=== PATIENT | male | born 1960 | race Caucasian/White ===

== ENCOUNTER 2021-08-29 11:26 | Emergency (ER) | payer MEDICARE, MEDICAID, SELFPAY ==
[2021-08-29 11:43] VITALS: BP 156/87; PULSE 78; RESP 16; TEMP 37; O2SAT 97
--- NOTE | 2021-08-29 12:50 | DI.CT_ITS ---
Exam(s) CT HEAD CERVICAL SPINE WO EXAM: CT HEAD CERVICAL SPINE WO CLINICAL HISTORY: fall, H/A, neck pain. TECHNIQUE: Imaging Protocol: Axial computed tomography images with coronal and sagittal reformatted images were created and reviewed COMPARISON: No exams were available for comparison FINDINGS: CT Head: Ventricles and Extra axial spaces: Normal in size and morphology for the patient's age. Hemorrhage: None. Cerebral parenchyma: Normal. Midline shift: None. Brainstem/Cerebellum: Normal. Calvarium: Normal. Visualized Paranasal sinuses/Mastoids: Clear. Soft Tissues: Unremarkable. CT Cervical Spine: Bones: No acute fracture or subluxation. The posterior arch of C1 is not united. This is a normal va riant. Multilevel degenerative changes are seen in the cervical spine. Soft Tissues: Atherosclerosis is present. Thyroid gland: Unremarkable. Lung Apices: Mild emphysematous changes. IMPRESSION: 1. No acute intracranial process. 2. No acute fracture or subluxation in the cervical spine. 3. Results of this exam have been verbally communicated with provider. RADIATION DOSE DELIVERED: 1,665.66mGy.cm Total DLP DATA REPOSITORY: All CT scans at this facility are submitted to the National Radiology Data Registry (NRDR) Dose Index Registry (DIR) with the [employer] (A[employer]). RADIATION OPTIMIZATION: All CT scans at this facility use at least one of these dose optimization te chniques: automated exposure control; mA and/or kV adjustment per patient size (includes targeted exa ms where dose is matched to clinical indication); or iterative reconstruction.
--- NOTE | 2021-08-29 13:38 | ED.GENADUL_ITS ---
Discharge Plan Disposition Patient Disposition: HOME Condition: Stable Discharge Details Clinical Impression: Neck pain, Cephalgia Primary Care Provider: Rafi Macedo ED Provider: Wander George Home Meds and New Rx's Prescriptions: New cyclobenzaprine 7.5 mg tablet 7.5 mg PO TID PRNQty: 10 RF: 0 Continued pregabalin [Lyrica] 300 mg capsule 300 mg PO BID Qty: 60 RF: 5 methadone 40 mg tablet,soluble 170 mg PO DAILY RF: 0 clonidine HCl 0.2 mg tablet 0.2 mg PO TID PRN (Reason: alcohol withdrawal) Qty: 90 RF: 0 promethazine 25 mg tablet 25 mg PO TID PRN (Reason: nausea and vomiting) Qty: 30 RF: 0 bupropion HCl (smoking deter) 150 mg tablet extended release 12 hr See Rx Instructions PO BID Qty: 180 RF: 0 indomethacin 50 mg capsule 50 mg PO TID PRN (Reason: gout attacks) Qty: 30 RF: 0 Discharge Instructions Instructions: General Headache (ED), Neck Pain (ED) Additional Instructions: At this time the CT of your head and neck are unremarkable. Further work-up was recommended here in the ER but declined. I recommend that you continue to discontinue drinking alcohol as set up by your primary care provider and outpatient plan. Flexeril as directed, this medication may cause drowsiness. Cool and/or warm compresses every 2 hours for 20 minutes gentle stretching as tolerated. [id number] Tylenol and/or Motrin as directed for discomfort. Please watch for new or worsening symptoms and return to the ER for any concerns. Lastly, please contact your primary care provider later today or tee [place] to discuss your ongoing symptoms need for outpatient reevaluation. Discharge Data Discharge Date/Time-TO BE ENTERED AT DEPARTURE: 08/29/21 13:57 Medical Decision Making 60-year-old gentleman presents complaining of neck discomfort and global headache upon awaking approximately 5 days ago. Unfortunately he is a rather vague and poor historian. Patient admits to alcohol use and multiple falls. Unclear whether this is trauma related. A hard c-collar was placed and plan is to obtain CT imaging of her C-spine and head. He denies any IV drug use. Denies fever, numbness, tingling, weakness, radiation of pain. Clinically he appears well, nontoxic, neurologically intact, afebrile. Patient and family are comfortable with obtaining CT imaging of head and C-spine. He would prefer not to have any IV access obtained or blood work obtained. Clinically there is no obvious signs of infection, the pain is bilateral, and he is neurologically intact. Other differential such as meningitis, dissection, abscess, etc. come to mind although based upon his presentation and his multiple falls, this does appear to be more musculoskeletal in nature. I did have a very candid conversation explained to the patient the limitations of this work-up. CT imaging unremarkable. Hard c-collar removed. Patient does have full range of motion of his neck and he has no bony midline point tenderness. No obvious erythema or warmth. No neuro deficit. Patient has diffuse discomfort with movement in any direction. There is no nuchal rigidity. We once again discussed her options. Patient does not want to pursue any further work-up now and is relieved that his CT of his brain and neck are unremarkable. We once again discussed the limitations of the work-up. He understands this. Patient is comfortable initially treating this conservatively as musculoskeletal but tells me he will contact his primary care provider tomorrow to discuss his ongoing symptoms or return to the ER for new or worsening symptoms. He states he simply cannot stay in the ER any longer this evening. I will provide a short term prescription of Flexeril and we discussed the importance of not drinking alcohol while taking this medication. Patient is of sound mind and can make his own decisions. Again he is afebrile, neurologically intact, no bony midline point tenderness, denies bowel or bladder issues. Patient understands the risks of leaving without additional work-up completed. Strict discharge and return precautions provided This documentation was generated using WIDIP dictation system, please disregard any oddities of phrase or misspellings. I have placed the patient on the care management list to help expedite out patient follow-up given his overall presentation and choice not to have further work-up here in the ER. Medical Records Medical records reviewed: Yes I reviewed the patient's medical records. Imaging Data Radiologic Study: Attestation: I personally reviewed and interpreted this imaging study as follows: Imaging: CT Scan Radiologist's impression: Exam(s) CT HEAD CERVICAL SPINE WO EXAM: CT HEAD CERVICAL SPINE WO CLINICAL HISTORY: fall, H/A, neck pain. TECHNIQUE: Imaging Protocol: Axial computed tomography images with coronal and sagittal reformatted images were created and reviewed COMPARISON: No exams were available for comparison FINDINGS: CT Head: Ventricles and Extra axial spaces: Normal in size and morphology for the patient's age. Hemorrhage: None. Cerebral parenchyma: Normal. Midline shift: None. Brainstem/Cerebellum: Normal. Calvarium: Normal. Visualized Paranasal sinuses/Mastoids: Clear. Soft Tissues: Unremarkable. CT Cervical Spine: Bones: No acute fracture or subluxation. The posterior arch of C1 is not united. This is a normal variant. Multilevel degenerative changes are seen in the cervical spine. Soft Tissues: Atherosclerosis is present. Thyroid gland: Unremarkable. Lung Apices: Mild emphysematous changes. IMPRESSION: 1. No acute intracranial process. 2. No acute fracture or subluxation in the cervical spine. 3. Results of this exam have been verbally communicated with provider. HPI General Mode of arrival: ambulatory . Date/Time Provider Initiated Documentation: 08/29/21 11:27 . Limitations to Documentation: no limitations . Information obtained by: patient and family . HPI Narrative: This is a 60-year-old gentleman with a past medical history of alcohol abuse, currently trying to cut back, hypertension, depression, current smoker, anemia, GERD, diabetes, on methadone, presenting to the ER reporting bilateral posterior neck discomfort worse with movement in any direction that radiates up to his head causing a headache. Patient states that given his alcohol abuse he does frequently fall. He admits to hitting his head but denies any obvious head injury or neck injury from the fall and. He states approximately 5 days ago he woke up in the morning, felt as though he slept awkwardly complaining of diffuse posterior neck discomfort. He is concerned of a pinched nerve. Patient denies any visual changes, sore throat, fever, chest pain, shortness of breath, abdominal pain, nausea, vomiting, pain or swelling in his extremities, numbness, tingling, weakness in extremities, anticoagulation, change in bowel or bladder function. He has not taken any [id number] medications for his symptoms. Patient states that he has contacted his primary care provider about his alcohol abuse, was recently prescribed clonidine, but has not begun taking it regularly. Patient reports the pain is moderate in nature, does not radiate anywhere. Patient placed into a hard c-collar Related Data Home Medications Medication Instructions Recorded Confirmed methadone 40 mg soluble tablet 170 mg PO DAILY tab 03/10/20 10/06/20 pregabalin 300 mg capsule 300 mg PO BID #60 cap 04/21/21 04/21/21 bupropion HCl (smoking deter) 150 See Rx Instructions PO BID #180 tab 08/11/21 08/11/21 mg tablet,12 hr sustained-release(smoking deterrent) clonidine HCl 0.2 mg tablet 0.2 mg PO TID PRN #90 tab 08/11/21 08/11/21 indomethacin 50 mg capsule 50 mg PO TID PRN #30 cap 08/11/21 08/11/21 promethazine 25 mg tablet 25 mg PO TID PRN #30 tab 08/11/21 08/11/21 cyclobenzaprine 7.5 mg PO TID PRN #10 tab 08/29/21 Previous Rx's Medication Instructions Recorded pregabalin 300 mg capsule 300 mg PO BID #60 cap 04/21/21 bupropion HCl (smoking deter) 150 See Rx Instructions PO BID #180 tab 08/11/21 mg tablet,12 hr sustained-release(smoking deterrent) clonidine HCl 0.2 mg tablet 0.2 mg PO TID PRN #90 tab 08/11/21 indomethacin 50 mg capsule 50 mg PO TID PRN #30 cap 08/11/21 promethazine 25 mg tablet 25 mg PO TID PRN #30 tab 08/11/21 cyclobenzaprine 7.5 mg PO TID PRN #10 tab 08/29/21 Allergies Allergy/AdvReac Type Severity Reaction Status Date / Time No Known Allergies Allergy Verified 08/11/21 09:12 General Stated Complaint: Nk/Back Pain ESTER: 3 Review of Systems Constitutional Constitutional: Denies fatigue, Denies fever(s), Reports headache(s) and Denies weakness Eyes Eyes: Denies change in vision ENT Ears, Nose, Mouth, and Throat: Reports headache(s), Reports neck pain and Denies sore throat Cardiovascular Cardiovascular: Denies chest pain and Denies dyspnea Respiratory Respiratory: Denies dyspnea Gastrointestinal Gastrointestinal: Denies abdominal pain, Denies nausea and Denies vomiting Genitourinary Genitourinary: Denies dysuria Musculoskeletal Musculoskeletal: Reports neck pain, Denies numbness and Denies tingling Integumentary/Breasts Skin/Breast: Denies rash Neurologic Neurologic: Reports headache(s), Denies numbness, Denies tingling and Denies weakness Endocrine Endocrine: Denies fatigue PFSH All Active Problems (Updated 08/29/21 @ 13:39 by BEVERLY Hubbard) Neck pain (Acute) Cephalgia (Acute) Varicose veins of both lower extremities (Acute) Gout (Chronic) History of tonsillectomy (Chronic) Hyperglycemia (Acute) Low back pain (Acute) Prostatitis (Acute) Inflammatory disease of liver (Chronic) Atrophic gastritis (Acute) Heart block (Acute) Essential hypertension (Acute) ADHD (Acute) Depressive disorder (Chronic) Tobacco use disorder (Acute) Claustrophobia (Acute) Anemia of chronic disease (Acute) Vitamin D deficiency (Acute) Disorder of endocrine system (Acute) Type II diabetes mellitus (Acute) GERD (gastroesophageal reflux disease) (Chronic) Social History (Updated 03/30/21 @ 13:57 by Lisa Coffman LPN) Smoking/Tobacco Use Status: Current every day Quit status: considering quitting Counseling given: support medications Smoking risk assessment performed?: Yes Alcohol Intake: current Alcohol Intake frequency: 3 or more drinks per day Details: H/O substance abuse - heroin Adopted: No Housing: other Details: [facility] Communication Needs: None current occupation: disabled Pets and animals: No Current gender identity: male What is your relationship status?: don't know How often do you talk on the phone with friends or family?: three or more times per week How often do you get together with friends or relatives?: three or more times per week Panel score (0-1 are the most socially isolated patients): 1 What type of physical activity do you participate in: none Seatbelt use: sometimes Fire extinguisher in home: No Carbon monox detector in home: No Firearms in home: No Do you feel safe at home: Yes Exam Const General: cooperative, healthy appearing, comfortable and no acute distress Orientation: alert, awake and oriented x3 HENMT Head: normal to inspection, normocephalic and atraumatic Face and sinus: normal facial exam Mouth: moist mucous membranes Eyes General: appearance normal, both eyes and all related structures Conjunctivae: conjunctivae normal Neck Neck: normal visual inspection, full ROM, no lymphadenopathy, no meningeal signs, trachea midline and supple Other: diffuse posterior discomfort, no midline point tenderness. Hard c-collar in place Resp Effort & Inspection: normal respiratory effort and able to speak in complete sentences Auscultation: clear to auscultation bilaterally Cardio Rate: regular rate Rhythm: regular rhythm GI Palpation: soft and nontender Back/Spine/Pelvis Back: No back tenderness Skin General skin exam: no rashes or lesions noted Neuro General: patient alert, patient awake, patient oriented x3, moves all extremities and no focal motor deficits Cranial Nerves: CN's II-XI intact bilaterally Cognition: normal cognition Speech: speech normal Gait: normal gait Motor: muscle tone normal throughout, strength 5/5 throughout and no movement abnormalities noted Sensory Exam: no sensory deficits noted Coordination: Does not sway with eyes open Extrem General: normal to inspection, full ROM, capillary refill normal, no pedal edema and no calf tenderness Psych Appearance: grossly normal Mental Status: mental status grossly normal Course Vital Signs Vital signs: Vital Signs Temperature 37.0 C 08/29/21 11:43 Pulse 78 08/29/21 11:43 Respiratory Rate 16 08/29/21 11:43 Blood Pressure 156/87 H 08/29/21 11:43 Pulse Oximetry 97 08/29/21 11:43 Temperature 37.0 C 08/29/21 11:43 Temperature Source Skin 08/29/21 11:43 Pulse 78 08/29/21 11:43 Respiratory Rate 16 08/29/21 11:43 Respiratory Effort 08/29/21 11:57 Blood Pressure 156/87 H 08/29/21 11:43 Blood Pressure Position Sitting 08/29/21 11:43 Pulse Oximetry 97 08/29/21 11:43 Oxygen Delivery Method Room Air 08/29/21 11:43 Oxygen Flow Rate 0 08/29/21 11:43 Pain Level 10 08/29/21 11:43 PAWSS Have you Been Recently Intoxicated or Drunk Within the Last 30 days?: Yes Have you Ever Experienced Previous Episodes of Alcohol Withdrawal?: Yes Have you ever Experienced Withdrawal Seizures?: Yes Have you ever Experienced Delirium Tremens(DT)s?: Yes Have you ever undergone Alcohol Rehabilitation Treatment (i.e, inpt ot outpatient treatment programs)?: Yes Have you ever Experienced Blackouts?: Yes Have you ever Combined Alcohol with other Downers within the last 90 days?: No Have you ever Combined Alcohol with any other Substance of Abuse during the last 90 days?: No Positive Blood Alcohol level on Presentation? [PCS.BAL]: Yes Evidence of Increased Autonomic Activity (i.e. HR>120, tremor, sweating, agitation, nausea)?: No Result: 7
--- NOTE | 2021-08-29 17:08 | NUR.NOTE ---
Nursing Note: CARE MANAGMENT GIVEN PT INFO FOR NECK PAIN PETTY. [facility]
== END 2021-08-29 13:57 | disposition home or self-care (01) ==
PROVIDERS: Emergency Provider Physician Assistant; PCP Family Medicine
DX: M54.2 Cervicalgia (principal); R51.9 Headache, unspecified; F10.10 Alcohol abuse, uncomplicated
CPT/HCPCS: 99284; 70450; 72125; 99283

== ENCOUNTER 2022-01-02 11:31 | Outpatient (CLI) | payer MEDICARE, MEDICAID, SELFPAY ==
--- NOTE | 2022-01-02 11:15 | DI.RAD_ITS ---
Exam(s) XR CLAVICLE RT EXAM: XR CLAVICLE RT CLINICAL HISTORY: right distal clavicle fracture TECHNIQUE: 2D digital imaging was performed of the right clavicle. Two images were obtained. AP and axial views were obtained. COMPARISON: CR XR SHOULDER MIN 2V RT from 12/12/2021 FINDINGS: BONES: There has been no change in alignment of the distal clavicular fracture. No bony destructive lesion is seen. There is again seen an osseous density superior to the glenohumeral joint. Postsurgi andrey changes are seen in the inferior glenoid. JOINTS: No dislocation present. Degenerative changes are seen at the glenohumeral joint and the acrom ioclavicular joint. SOFT TISSUE: Normal IMPRESSION: Stable distal clavicular fracture. DATA REPOSITORY: RADIATION DOSE DELIVERED:
--- NOTE | 2022-01-02 11:30 | DI.RAD_ITS ---
Exam(s) XR SHOULDER RT COMPLETE 2+V EXAM: XR SHOULDER RT COMPLETE 2+V CLINICAL HISTORY: right shoudler pain. TECHNIQUE: 2D digital imaging was performed of the right shoulder. Four images were obtained. AP a nd axillary views were obtained. COMPARISON: CR XR SHOULDER MIN 2V RT from 12/12/2021 FINDINGS: BONES: There has been no change in alignment of the distal clavicular fracture. No bony destructive lesion is seen. Postsurgical changes are seen in the inferior glenoid. The appearance of the humeral head is unchanged. JOINTS: No dislocation present. Degenerative changes are again seen at the acromioclavicular and dhiraj ohumeral joints. SOFT TISSUE: Calcifications in the soft tissues are unchanged. IMPRESSION: Stable distal clavicular fracture. DATA REPOSITORY: RADIATION DOSE DELIVERED:
== END 2022-01-02 11:32 | disposition home or self-care (01) ==
PROVIDERS: PCP Family Medicine; Referring Provider Family Medicine; Visit Provider Physician Assistant
DX: S42.001A Fracture of unspecified part of right clavicle, initial encounter for closed fracture (principal); S42.141A Displaced fracture of glenoid cavity of scapula, right shoulder, initial encounter for closed fracture; W01.0XXA Fall on same level from slipping, tripping and stumbling without subsequent striking against object, initial encounter; M19.011 Primary osteoarthritis, right shoulder
CPT/HCPCS: 99214; 73000; 73030

== ENCOUNTER → 2022-01-08 00:37 | Outpatient (CLI) | payer MEDICARE, MEDICAID, SELFPAY | PROVIDERS: PCP Family Medicine; Visit Provider Student in an Organized Health Care Education/Training Program ==

== ENCOUNTER → 2022-01-23 11:30 | Outpatient (BNVA) | payer MEDICARE, MEDICAID, SELFPAY | PROVIDERS: PCP Family Medicine; Referring Provider Family Medicine; Visit Provider Student in an Organized Health Care Education/Training Program | DX: R69 Illness, unspecified (principal) ==

== ENCOUNTER 2022-07-04 18:03 | Inpatient (IN) | payer MEDICARE, MEDICAID, SELFPAY ==
[2022-07-04] VITALS (53 sets, daily range): BP systolic 129–189; BP diastolic 70–107; PULSE 77–118; RESP 10–26; TEMP 36.8; O2SAT 93–100
[2022-07-04 18:47] LABS: Bilirubin Negative (Negative); Blood Trace-lysed (Negative); Clarity Sl Cloudy (Clear); Glucose Negative (Negative); Ketones Negative (Negative); Leukocyte Esterase Negative (Negative); Nitrite Negative (Negative); pH 7.5 (5-8)
--- NOTE | 2022-07-04 18:55 | W.ED.GENAD ---
Discharge Plan Disposition Patient Disposition: [facility] INPATIENT Condition: Stable Discharge Details Clinical Impression: Acute gallstone pancreatitis, Alcohol intoxication Primary Care Provider: Rafi Macedo ED Provider: Doretha Alatorre Home Meds and New Rx's Prescriptions: No Action methadone 40 mg tablet,soluble 170 mg PO DAILY bupropion HCl (smoking deter) 150 mg tablet extended release 12 hr See Rx Instructions PO BID Qty: 180 0RF Rx Instructions: Start 150 mg QD x 3 days, then increase to BID PO twice a day; indomethacin 50 mg capsule 50 mg PO TID PRN (Reason: gout attacks) Qty: 30 0RF Rx Instructions: administer with food or milk clonidine HCl 0.2 mg tablet 0.2 mg PO TID PRN (Reason: alcohol withdrawal) Qty: 90 0RF promethazine 25 mg tablet 25 mg PO TID PRN (Reason: nausea and vomiting) Qty: 90 0RF cyclobenzaprine 7.5 mg tablet 7.5 mg PO TID PRNQty: 10 0RF Medical Decision Making 1814 -- 61-year-old male with history of daily alcohol abuse, hypertension, gout, GERD, diabetes, ADHD, and tobacco use presents for request for alcohol detox. Last drink 1 hour ago. He is also complaining of vomiting and abdominal pain. Patient is intoxicated appearing. His heart rate 104, remainder vitals within normal limits. His abdomen is soft and mildly diffusely tender throughout. Presentation does not appear consistent with withdrawal at this time. Consider other gastrointestinal process. Will obtain screening labs and CT imaging. We will give a dose of Zofran and IV fluids. We will continue to monitor for signs of withdrawal. If patient is medically cleared, will contact head tennis coach with plan for referral to rehabilitation. 1999 -- patient too intoxicated to speak to head tennis coach. 2144 -- Labs and imaging reviewed. Normal white blood cell count. Normal electrolytes. AST minimally elevated at 92. Normal ALT. Alk phos minimally elevated at 155. Normal total bilirubin. Lipase moderately elevated at 505. Urinalysis notes blood but no infection. UDS positive for methadone. Alcohol level 145. CT notes sludge and possible gallstones within the gallbladder lumen with mild gallbladder thickening and pericholecystic fluid consistent with possible acute calculus cholecystitis. There may also be a small stone present in the distal common bile duct and consider choledocholithiasis and gallstone pancreatitis. There is diffuse peripancreatic inflammatory stranding and fluid consistent with acute pancreatitis. Patient reassessed and he is complaining of left shoulder pain. He states he sustained a recent left clavicle fracture. His heart rate is low 90s. His blood pressure has become slightly more hypertensive at 148/99. We will give a dose of IV Tylenol, will give a dose of IV Ativan, banana bag. Will call general surgery for recommendations. 2229 --Case discussed and imaging reviewed with Dr. Levy --likely not consistent with choledocholithiasis as he has normal bilirubin. Recommends n.p.o. and obtaining abdominal ultrasound tomorrow. Recommends admission to [facility] medicine for monitoring for alcohol withdrawal. Case discussed with Dr. Ibarra who accepts patient for admission. Patient can be admitted to the floor with oral Ativan. This was discussed with Dr. Levy and she is okay with oral Ativan. Medical Records Medical records reviewed: Yes I reviewed the patient's medical records. Imaging Data Radiologic Study: Radiologist's impression: CT Abdomen And Pelvis With Contrast Exam date and time: 07/04/2022 9:40 PM Age: 61 years old Clinical indication: Abdominal pain; Generalized TECHNIQUE: Imaging protocol: Computed tomography of the abdomen and pelvis with contrast. Contrast material: OMNIPAQUE 350; Contrast volume: 100 ml; Contrast route: INTRAVENOUS (IV);? COMPARISON: No relevant prior studies available. FINDINGS: Lungs: There are bilateral lower lobe atelectatic changes present. The lungs are otherwise normal. Pleural spaces: There is no evidence of pneumothorax. There are no pleural effusions present. Heart: The cardiac structures are normal. Liver: There are no focal liver lesions present. Gallbladder and bile ducts: There is sludge and possible small gallstones present within the gallbladder lumen. There is mild gallbladder thickening. There is mild pericholecystic fluid. Consider acute calculus cholecystitis. There may be a small stone present within the distal common bile duct consider choledocholithiasis and gallstone pancreatitis. Pancreas: There is diffuse peripanreatic inflammatory stranding and fluid, consistent with acute pancreatitis. The pancreatic duct is mildly dilated. Spleen: The spleen is normal. Adrenal glands: The adrenal glands are normal. Kidneys and ureters: The kidneys are normal. Stomach and bowel: There is no evidence of intestinal obstruction. Appendix: There is no evidence of appendicitis. Intraperitoneal space: There is no free intraperitoneal air. Vasculature: The aorta is unremarkable without evidence of significant atherosclerosis or aneurysmal disease. The peripheral arterial vascular system visualized is unremarkable. The portal venous system visualized is unremarkable. The peripheral venous vascular system visualized is unremarkable. Lymph nodes: There is no evidence of lymphadenopathy. Urinary bladder: The bladder is normal. Reproductive: The prostate gland demonstrates calcification and mild nonspecific enlargement. The seminal vesicles are normal. Bones/joints: The skeletal structures and soft tissues show no evidence of fracture or other acute processes. The thoracolumbar spine demonstrates moderate degenerative changes at multiple levels.The lumbar spine demonstrates moderate degenerative changes. Soft tissues: The extra-abdominal soft tissues are normal. The extra-abdominal soft tissues are normal. IMPRESSION: 1. There is sludge and possible small gallstones present within the gallbladder lumen. There is mild gallbladder thickening. There is mild pericholecystic fluid. Consider acute calculus cholecystitis. 2. There may be a small stone present within the distal common bile duct consider choledocholithiasis and gallstone pancreatitis. 3. There is diffuse peripanreatic inflammatory stranding and fluid, consistent with acute pancreatitis. 4. The pancreatic duct is mildly dilated. Lab Data Lab results reviewed: Yes I reviewed the patient's lab results. Labs: Laboratory Tests Range/Units 07/04/22 07/04/22 07/04/22 18:40 18:40 18:50 WBC (4.4-10.8) 10^3/uL RBC (4.36-5.78) 10^6/uL Hgb (13.5-17.5) g/dL Hct (40.0-50.0) % MCV (80-95) fL MCH (27.0-33.0) pg MCHC (32.0-36.0) % RDW (11.8-14.1) % Plt Count (130-400) 10^3/uL MPV (8.0-11.0) fL Immature Gran % Neutrophils % Lymphocytes % Monocytes % Eosinophils % Basophils % Nucleated RBC % (0.0-0.3) % Absolute Neutrophils (1.2-6.7) 10^3/uL Absolute Lymphocytes (1.2-3.4) 10^3/uL Absolute Monocytes (0.1-0.8) 10^3/uL Absolute Eosinophils (0.0-0.7) 10^3/uL Absolute Basophils (0.0-0.2) 10^3/uL Sodium (136-145) mmol/L 137 Potassium (3.5-5.1) mmol/L 3.5 Chloride (98-107) mmol/L 98 Carbon Dioxide (21.0-32.0) mmol/L 31.7 Anion Gap (3-11) mmol/L 7.3 BUN (7-18) mg/dL 7 Creatinine (0.70-1.30) mg/dL 0.8 Est GFR (CKD-EPI 2020) (mL/min/1.73m2) 100.69 Glucose (74-106) mg/dL 111 H Calcium (8.5-10.1) mg/dL 8.7 Total Bilirubin (0.2-1.0) mg/dL 0.7 AST (15-37) U/L 92 H ALT (16-63) U/L 45 Alkaline Phosphatase (46-116) U/L 155 H Total Protein (6.4-8.2) g/dL 7.9 Albumin (3.4-5.0) g/dL 3.9 Lipase (73-393) U/L Urine Color (Yellow) Yellow Urine Clarity (Clear) Sl Cloudy Urine pH (5-8) 7.5 Ur Specific [place] (1.005-1.025) 1.020 Urine Protein (Negative) mg/dL Negative Urine Ketones (Negative) mg/dL Negative Urine Blood (Negative) Trace-lysed H Urine Nitrite (Negative) Negative Urine Bilirubin (Negative) Negative Urine Urobilinogen (Up TO 0.2) EU/dL 1.0 H Ur Leukocyte Esterase (Negative) Negative Urine RBC (0-2) HPF 3-5 H Urine WBC (0-5) HPF 0-2 Ur Epithelial Cells (Negative) HPF Few Urine Crystals (Negative) HPF Few Amorphous Urine Bacteria (Negative) HPF Few Urine Mucus (Negative) Negative Ur Culture Indicated? No Urine Glucose (Negative) mg/dL Negative Urine Opiates Screen (Negative) Negative Urine Methadone Screen (Negative) Positive A Ur Barbiturates Screen (Negative) Negative Ur Tricyclics Screen (Negative) Negative Ur Amphetamines Screen (Negative) Negative U Benzodiazepines Scrn (Negative) Negative Urine Cocaine Screen (Negative) Negative Ur THC Screen (Negative) Negative Ethyl Alcohol (<10) mg/dL 145.2 H Range/Units 07/04/22 07/04/22 18:50 18:50 WBC (4.4-10.8) 10^3/uL 4.68 RBC (4.36-5.78) 10^6/uL 4.42 Hgb (13.5-17.5) g/dL 14.7 Hct (40.0-50.0) % 42.0 MCV (80-95) fL 95 MCH (27.0-33.0) pg 33.3 H MCHC (32.0-36.0) % 35.0 RDW (11.8-14.1) % 13.3 Plt Count (130-400) 10^3/uL 203 MPV (8.0-11.0) fL 8.5 Immature Gran % 0.0 Neutrophils % 68.0 Lymphocytes % 23.1 Monocytes % 8.3 Eosinophils % 0.2 Basophils % 0.4 Nucleated RBC % (0.0-0.3) % 0.0 Absolute Neutrophils (1.2-6.7) 10^3/uL 3.18 Absolute Lymphocytes (1.2-3.4) 10^3/uL 1.08 L Absolute Monocytes (0.1-0.8) 10^3/uL 0.39 Absolute Eosinophils (0.0-0.7) 10^3/uL 0.01 Absolute Basophils (0.0-0.2) 10^3/uL 0.02 Sodium (136-145) mmol/L Potassium (3.5-5.1) mmol/L Chloride (98-107) mmol/L Carbon Dioxide (21.0-32.0) mmol/L Anion Gap (3-11) mmol/L BUN (7-18) mg/dL Creatinine (0.70-1.30) mg/dL Est GFR (CKD-EPI 2020) (mL/min/1.73m2) Glucose (74-106) mg/dL Calcium (8.5-10.1) mg/dL Total Bilirubin (0.2-1.0) mg/dL AST (15-37) U/L ALT (16-63) U/L Alkaline Phosphatase (46-116) U/L Total Protein (6.4-8.2) g/dL Albumin (3.4-5.0) g/dL Lipase (73-393) U/L 505 H Urine Color (Yellow) Urine Clarity (Clear) Urine pH (5-8) Ur Specific [place] (1.005-1.025) Urine Protein (Negative) mg/dL Urine Ketones (Negative) mg/dL Urine Blood (Negative) Urine Nitrite (Negative) Urine Bilirubin (Negative) Urine Urobilinogen (Up TO 0.2) EU/dL Ur Leukocyte Esterase (Negative) Urine RBC (0-2) HPF Urine WBC (0-5) HPF Ur Epithelial Cells (Negative) HPF Urine Crystals (Negative) HPF Urine Bacteria (Negative) HPF Urine Mucus (Negative) Ur Culture Indicated? Urine Glucose (Negative) mg/dL Urine Opiates Screen (Negative) Urine Methadone Screen (Negative) Ur Barbiturates Screen (Negative) Ur Tricyclics Screen (Negative) Ur Amphetamines Screen (Negative) U Benzodiazepines Scrn (Negative) Urine Cocaine Screen (Negative) Ur THC Screen (Negative) Ethyl Alcohol (<10) mg/dL ECG Data Attestation: I personally reviewed and interpreted this ECG (s) as follows: Interpretation: rate of 92, sinus, normal axis, no stemi. HPI General Mode of arrival: ambulatory. Date/Time Provider Initiated Documentation: 07/04/22 18:15. Limitations to Documentation: no limitations. Information obtained by: patient. HPI Narrative: Patient is a 61-year-old male with a history of daily alcohol abuse, hypertension, GERD, ADHD, depression who presents for request for detox. Partner states that he drinks approximately 18 twisted teas daily. He states he had 16 twisted teas today, his last drink was 1 hour ago. He states he missed his methadone doses on Saturday and Saturday but did receive his dose today. Partner states that he has been vomiting and complaining of abdominal pain today. Patient states he did use cocaine several days ago. Partner states he has been in rehabilitation in the past. Related Data Home Medications Medication Instructions Recorded Confirmed methadone 40 mg soluble tablet 170 mg PO DAILY 03/10/20 07/04/22 bupropion HCl (smoking deter) 150 See Rx Instructions PO BID #180 08/11/21 07/04/22 mg tablet,12 hr tabs sustained-release(smoking deterrent) indomethacin 50 mg capsule 50 mg PO TID PRN gout attacks #30 08/11/21 07/04/22 caps cyclobenzaprine 7.5 mg tablet 7.5 mg PO TID PRN #10 tabs 08/29/21 07/04/22 clonidine HCl 0.2 mg tablet 0.2 mg PO TID PRN alcohol 05/17/22 07/04/22 withdrawal #90 tabs promethazine 25 mg tablet 25 mg PO TID PRN nausea and 05/17/22 07/04/22 vomiting #90 tabs Previous Rx's Medication Instructions Recorded bupropion HCl (smoking deter) 150 See Rx Instructions PO BID #180 08/11/21 mg tablet,12 hr tabs sustained-release(smoking deterrent) indomethacin 50 mg capsule 50 mg PO TID PRN gout attacks #30 08/11/21 caps cyclobenzaprine 7.5 mg tablet 7.5 mg PO TID PRN #10 tabs 08/29/21 clonidine HCl 0.2 mg tablet 0.2 mg PO TID PRN alcohol 05/17/22 withdrawal #90 tabs promethazine 25 mg tablet 25 mg PO TID PRN nausea and 05/17/22 vomiting #90 tabs Allergies Allergy/AdvReac Type Severity Reaction Status Date / Time No Known Allergies Allergy Verified 07/04/22 18:13 General Stated Complaint: ETOHWithdr ESTER: 3 Review of Systems All systems reviewed & are unremarkable except as noted in HPI and below Constitutional Constitutional: Reports as per HPI, Denies chills and Denies fever(s) Eyes Eyes: Denies blurry vision ENT Ears, Nose, Mouth, and Throat: Denies dizziness, Denies sore throat and Denies throat swelling Cardiovascular Cardiovascular: Denies chest pain and Denies dyspnea Respiratory Respiratory: Denies cough and Denies dyspnea Gastrointestinal Gastrointestinal: Reports abdominal pain, Denies diarrhea, Reports nausea and Reports vomiting Genitourinary Genitourinary: Denies hematuria and Denies dysuria Musculoskeletal Musculoskeletal: Denies back pain and Denies numbness Integumentary/Breasts Skin/Breast: Denies lesions and Denies rash Neurologic Neurologic: Denies dizziness, Denies localized weakness and Denies numbness Allergic/Immunologic Allergic/Immunologic: Denies throat swelling PFSH All Active Problems (Updated 07/04/22 @ 22:11 by Doretha Alatorre DO) Acute gallstone pancreatitis (Acute) Alcohol intoxication (Acute) No-show for appointment (Acute) Arthritis of right glenohumeral joint (Acute) Fracture of right clavicle (Acute) distal clavicle 12/12/21 Nausea (Acute) Varicose veins of both lower extremities (Acute) Hyperglycemia (Acute) Low back pain (Acute) Prostatitis (Acute) Inflammatory disease of liver (Chronic) Atrophic gastritis (Acute) Heart block (Acute) Claustrophobia (Acute) Vitamin D deficiency (Acute) Disorder of endocrine system (Acute) Medical History (Updated 07/04/22 @ 22:11 by Doretha Alatorre DO) ADHD Alcoholism Anemia of chronic disease Depressive disorder Essential hypertension GERD (gastroesophageal reflux disease) Gout Tobacco use disorder Type II diabetes mellitus Surgical History (Updated 07/04/22 @ 18:56 by Doretha Alatorre DO) History of foot surgery History of tonsillectomy Social History (Updated 03/30/21 @ 13:57 by Lisa Coffman LPN) Smoking/Tobacco Use Status: Current every day Quit status: considering quitting Counseling given: support medications Smoking risk assessment performed?: Yes Alcohol Intake: current Alcohol Intake frequency: 3 or more drinks per day Drug use: Current Sobriety Substance use type: does not use Details: H/O substance abuse - heroin Adopted: No Housing: other Details: [facility] Communication Needs: None current occupation: disabled Pets and animals: No Current gender identity: male What is your relationship status?: don't know How often do you talk on the phone with friends or family?: three or more times per week How often do you get together with friends or relatives?: three or more times per week Panel score (0-1 are the most socially isolated patients): 1 What type of physical activity do you participate in: none Seatbelt use: sometimes Fire extinguisher in home: No Carbon monox detector in home: No Firearms in home: No Do you feel safe at home: Yes Exam Const General: disheveled and intoxicated appearing Orientation: alert, awake and oriented x3 HENMT Head: normal to inspection Face and sinus: normal facial exam Eyes General: appearance normal, both eyes and all related structures Pupils: PERRL EOM: EOM intact bilaterally Neck Neck: normal visual inspection and No submandibular swelling Lymphatic: no lymphadenopathy noted Chest Chest: normal inspection of the chest and no tenderness Resp Effort & Inspection: normal respiratory effort and able to speak in complete sentences Auscultation: clear to auscultation bilaterally Cardio Rate: tachycardic Rhythm: regular rhythm GI Inspection: normal to inspection Palpation: soft, not firm, not rigid and nontender Auscultation: hypoactive bowel sounds Back/Spine/Pelvis Thoracic/Lumbar Spine: thoracic and lumbar spine normal to inspection Pelvis: no pain with anterior-posterior compression Skin General skin exam: no rashes or lesions noted Neuro General: patient alert, patient awake, patient oriented x3, moves all extremities and no meningeal signs Cognition: normal cognition Speech: speech normal Motor: muscle tone normal throughout and strength 5/5 throughout Sensory Exam: no sensory deficits noted Extrem General: normal to inspection, full ROM, capillary refill normal, no calf tenderness bilaterally and no edema Psych Appearance: grossly normal Mental Status: mental status grossly normal Speech and Movement: speech and movement normal Affect: normal affect Course Vital Signs Vital signs: Vital Signs Temperature 98.3 F 07/04/22 18:09 Pulse 104 H 07/04/22 18:09 Respiratory Rate 18 07/04/22 18:09 Blood Pressure 130/88 07/04/22 18:09 Pulse Oximetry 98 07/04/22 18:09 Temperature 98.3 F 07/04/22 18:09 Temperature Source Oral 07/04/22 18:09 Pulse 104 H 07/04/22 18:09 Respiratory Rate 18 07/04/22 18:09 Respiratory Effort Non-Labored 07/04/22 18:14 Blood Pressure 130/88 07/04/22 18:09 Blood Pressure Position Sitting 07/04/22 18:09 Pulse Oximetry 98 07/04/22 18:09 Oxygen Delivery Method Room Air 07/04/22 18:09 Oxygen Flow Rate 0 07/04/22 18:09 Pain Level 10 07/04/22 18:09 PAWSS Have you Been Recently Intoxicated or Drunk Within the Last 30 days?: Yes Have you Ever Experienced Previous Episodes of Alcohol Withdrawal?: Yes Have you ever Experienced Withdrawal Seizures?: No Have you ever Experienced Delirium Tremens(DT)s?: No Have you ever undergone Alcohol Rehabilitation Treatment (i.e, inpt ot outpatient treatment programs)?: Yes Have you ever Experienced Blackouts?: Yes Have you ever Combined Alcohol with other Downers within the last 90 days?: No Have you ever Combined Alcohol with any other Substance of Abuse during the last 90 days?: No Result: 4
[2022-07-04 18:56] LABS: Bacteria Few HPF (Negative); C & S Indicated? No; Crystals Few Amorphous HPF (Negative); Epithelial Cells Few HPF (Negative); Mucus Negative (Negative); WBC 0-2 HPF (0-5)
[2022-07-04 18:57] LABS: *AMPHETAMINES SCREEN URINE Negative (Negative); *BARBITURATES SCREEN URINE Negative (Negative); *BENZODIAZEPINES SCREEN URINE Negative (Negative); Cannabinoids THC Negative (Negative); Cocaine Screen,Urine Negative (Negative); METHADONE URINE SCREEN Positive (Negative); OPIATES URINE SCREEN Negative (Negative)
[2022-07-04 18:59] LABS: Tricyclic Antidepressants Negative (Negative)
--- NOTE | 2022-07-04 18:59 | NUR.NOTE ---
has not been consistent with taking medications for the past month Nursing Note:
--- NOTE | 2022-07-04 19:00 | RT.EKG_ITS ---
APPROVED REPORT Exam: Resting ECG Reason for Exam: tachycardia Patient Location: E HR:92 bpm ECG Measurements Heart Rate 92 AXIS ID 176 P 71 QRSd 112 QRS 83 QT 402 T 63 QTc 496 Conclusion Sinus rhythm...normal P axis, V-rate 60- 99. Sinus. Normal axis. No STEMI. I have reviewed and interpreted ECG and agree with software generated interpretation.
[2022-07-04 19:01] LABS: Absolute Basophil Count 0.02 10^3/uL (0.0-0.2); Absolute Eosinophil Count 0.01 10^3/uL (0.0-0.7); Absolute Lymphocyte Count 1.08 10^3/uL (1.2-3.4); Absolute Monocyte Count 0.39 10^3/uL (0.1-0.8); Absolute Neutrophil Count 3.18 10^3/uL (1.2-6.7); Basophils % 0.4; Eosinophils % 0.2; HGB 14.7 g/dL (13.5-17.5); Lymphocytes % 23.1; MCH 33.3 pg (27.0-33.0); MCV 95 fL (80-95); MPV 8.5 fL (8.0-11.0); Monocytes % 8.3; Platelet Count 203 10^3/uL (130-400); RBC 4.42 10^6/uL (4.36-5.78); RDW 13.3 % (11.8-14.1); RDW-SD 46.9 fL; WBC 4.68 10^3/uL (4.4-10.8)
[2022-07-04 19:20] LABS: ALT 45 U/L (16-63); AST 92 U/L (15-37); Albumin 3.9 g/dL (3.4-5.0); Alkaline Phosphatase 155 U/L (46-116); Anion Gap 7.3 mmol/L (3-11); BUN 7 mg/dL (7-18); Bilirubin, Total 0.7 mg/dL (0.2-1.0); CO2 31.7 mmol/L (21.0-32.0); CREATININE 0.8 mg/dL (0.70-1.30); Calcium 8.7 mg/dL (8.5-10.1); Chloride 98 mmol/L (98-107); ETHANOL BLOOD 145.2 mg/dL (<10); Estimated GFR 100.69 (mL/min/1.73m2); Glucose 111 mg/dL (74-106); Potassium 3.5 mmol/L (3.5-5.1); Sodium 137 mmol/L (136-145); Total Protein 7.9 g/dL (6.4-8.2)
[2022-07-04] MEDS: Normal Saline 1,000 ML 1000 ML IV ×2 (19:30→21:51)
[2022-07-04] MEDS: LORazepam 2 MG/ML VIAL 0.5 MG IVP (19:35)
--- NOTE | 2022-07-04 20:15 | DI.CT_ITS ---
Exam(s) CT ABDOMEN PELVIS W EXAM: CT ABDOMEN PELVIS W CLINICAL HISTORY: abdominal pain, r/o acute process TECHNIQUE: Imaging Protocol: Axial computed tomography images with coronal and sagittal reformatted images were created and reviewed CONTRAST MATERIAL: Intravenous: Omnipaque 350 Contrast volume:100 mL Oral: No COMPARISON: No exams were available for comparison FINDINGS: ABDOMEN: Lung Bases: Normal where visualized. Liver: Normal density. No measurable mass. Portal, Superior Mesenteric, and Splenic Veins: Unremarkable. Gallbladder and Biliary Tract: There are gallstones present. There is enhancement and thickening of the wall. Pericholecystic fluid is seen. There is dilatation of the extrahepatic bile duct measurin g 1 cm. No definite choledocholithiasis is seen at this time. Findings are suspicious for acute cho lecystitis. Pancreas: There is mild heterogeneity of the head of the pancreas and mild peripancreatic inflammatio n. Spleen: Normal. Adrenals: No masses seen. Kidneys: Normal size, contour and axis. No radiodense stones or obstructive uropathy. No masses seen. Abdominal Aorta: Abdominal portion non-dilated. Atherosclerosis is present. Bowel: No evidence of bowel obstruction. Mild inflammation wall thickening is seen in the 1st and pr oximal 2nd portion of the duodenum suspicious for duodenitis likely secondary to the adjacent gallbla dder inflammation. No evidence of appendicitis. Peritoneal Cavity: No ascites, collection or mesenteric inflammatory response. No free air. Lymph Nodes: Within normal limits. Bones: Within normal limits for the patient's age. Grade 1 anterolisthesis of L4 on L5 is seen. Thi s is likely secondary to the degenerative changes. Soft Tissues: Mild gynecomastia. PELVIS: Bladder: Symmetric distention, no gross wall thickening. Reproductive Organs: Mildly enlarged prostate gland. Lymph Nodes: Within normal limits. Bones: Within normal limits for the patient's age. IMPRESSION: 1. Findings suspicious for acute cholecystitis. 2. Heterogeneity of the head of the pancreas and peripancreatic inflammation suggesting acute pancrea titis. No peripancreatic fluid collection is seen. 3. Bowel wall thickening mild inflammation around the proximal duodenum suspicious for acute duodenit is. RADIATION DOSE DELIVERED: 1,029.98mGy.cm Total DLP DATA REPOSITORY: All CT scans at this facility are submitted to the National Radiology Data Registry (NRDR) Dose Index Registry (DIR) with the [employer] (A[employer]). RADIATION OPTIMIZATION: All CT scans at this facility use at least one of these dose optimization te chniques: automated exposure control; mA and/or kV adjustment per patient size (includes targeted exa ms where dose is matched to clinical indication); or iterative reconstruction.
[2022-07-04 20:45] LABS: Lipase 505 U/L (73-393)
[2022-07-04] MEDS: Normal Saline - Diluent 50 ML VIAL IV (21:53)
--- NOTE | 2022-07-04 22:03 | DI.VRAD_ITS ---
PROCEDURE INFORMATION: Exam: CT Abdomen And Pelvis With Contrast Exam date and time: 07/04/2022 9:40 PM Age: 61 years old Clinical indication: Abdominal pain; Generalized TECHNIQUE: Imaging protocol: Computed tomography of the abdomen and pelvis with contrast. Contrast material: OMNIPAQUE 350; Contrast volume: 100 ml; Contrast route: INTRAVENOUS (IV); COMPARISON: No relevant prior studies available. FINDINGS: Lungs: There are bilateral lower lobe atelectatic changes present. The lungs are otherwise normal. Pleural spaces: There is no evidence of pneumothorax. There are no pleural effusions present. Heart: The cardiac structures are normal. Liver: There are no focal liver lesions present. Gallbladder and bile ducts: There is sludge and possible small gallstones present within the gallbladder lumen. There is mild gallbladder thickening. There is mild pericholecystic fluid. Consider acute calculus cholecystitis. There may be a small stone present within the distal common bile duct consider choledocholithiasis and gallstone pancreatitis. Pancreas: There is diffuse peripanreatic inflammatory stranding and fluid, consistent with acute pancreatitis. The pancreatic duct is mildly dilated. Spleen: The spleen is normal. Adrenal glands: The adrenal glands are normal. Kidneys and ureters: The kidneys are normal. Stomach and bowel: There is no evidence of intestinal obstruction. Appendix: There is no evidence of appendicitis. Intraperitoneal space: There is no free intraperitoneal air. Vasculature: The aorta is unremarkable without evidence of significant atherosclerosis or aneurysmal disease. The peripheral arterial vascular system visualized is unremarkable. The portal venous system visualized is unremarkable. The peripheral venous vascular system visualized is unremarkable. Lymph nodes: There is no evidence of lymphadenopathy. Urinary bladder: The bladder is normal. Reproductive: The prostate gland demonstrates calcification and mild nonspecific enlargement. The seminal vesicles are normal. Bones/joints: The skeletal structures and soft tissues show no evidence of fracture or other acute processes. The thoracolumbar spine demonstrates moderate degenerative changes at multiple levels.The lumbar spine demonstrates moderate degenerative changes. Soft tissues: The extra-abdominal soft tissues are normal. The extra-abdominal soft tissues are normal. IMPRESSION: 1. There is sludge and possible small gallstones present within the gallbladder lumen. There is mild gallbladder thickening. There is mild pericholecystic fluid. Consider acute calculus cholecystitis. 2. There may be a small stone present within the distal common bile duct consider choledocholithiasis and gallstone pancreatitis. 3. There is diffuse peripanreatic inflammatory stranding and fluid, consistent with acute pancreatitis. 4. The pancreatic duct is mildly dilated. Dictated and Authenticated by: Darell Carr MD. Ordering:ABBEY Coyne MD
[2022-07-04] MEDS: LORazepam 2 MG/ML VIAL 1 MG IVP (22:17)
[2022-07-04] MEDS: ACETAMINOPHEN 1,000 MG/100 ML BTL 400 MG IVPB (22:17)
--- NOTE | 2022-07-04 22:44 | HPE_ITS ---
Date of service: 07/04/22 Time of Service: 22:44 Assessment and Plan Assessment and plan (1) Acute gallstone pancreatitis: Status: Acute Assessment and plan: keep NPO, obtain [place]. of GB and pancreas, obtain MRCP; surgical consult in the a.m.; parenteral antiemetics and analgesics; no indication for acute iv fluids as patient is hemodynamically stable and has no azotemia. If he remains NPO beyond tomorrow then will likely need maintenance fluids but risk of hepatic and pancreatic congestion outweigh any benefit for IV fluids, also patient already got fluid boluses in the ED Professional time spent interviewing and examining patient, discussion of goals of care with hospital team (care management, nursing and consulting professionals) was 60 minutes. 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 Labs revealed l ipase of 505, minimal elevation of transaminase and alkaline phosphatase (AST 92, alkaline phosphatase 155) but normal bilirubin 0.7. CBC did not show any anemia or leukocytosis. Patient admits to epigastric and RUQ abdominal pain but then also talks about having shoulder pain and points to his left shoulder (not his right shoulder). Dr. Alatorre ran the case by Dr. Levy who indicated that she would consult on the patient but is concerned for possilbe acute alcohol withdrawal and therefore asked that the patient be admitted on the hospitalist service. Review of Systems Constitutional Constitutional: Reports as per HPI Gastrointestinal Gastrointestinal: Reports as per HPI PFS All Active Problems Acute gallstone pancreatitis (Acute) Alcohol intoxication (Acute) No-show for appointment (Acute) Arthritis of right glenohumeral joint (Acute) Fracture of right clavicle (Acute) distal clavicle 12/12/21 Nausea (Acute) Varicose veins of both lower extremities (Acute) Hyperglycemia (Acute) Low back pain (Acute) Prostatitis (Acute) Inflammatory disease of liver (Chronic) Atrophic gastritis (Acute) Heart block (Acute) Claustrophobia (Acute) Vitamin D deficiency (Acute) Disorder of endocrine system (Acute) Medical History ADHD Alcoholism Anemia of chronic disease Depressive disorder Essential hypertension GERD (gastroesophageal reflux disease) Gout Tobacco use disorder Type II diabetes mellitus Surgical History History of foot surgery History of tonsillectomy Social History Smoking/Tobacco Use Status: Current every day Quit status: considering quitting Counseling given: support medications Smoking risk assessment performed?: Yes Alcohol Intake: current Alcohol Intake frequency: 3 or more drinks per day Drug use: Current Sobriety Substance use type: does not use Details: H/O substance abuse - heroin Adopted: No Housing: other Details: [facility] Communication Needs: None current occupation: disabled Pets and animals: No Current gender identity: male What is your relationship status?: don't know How often do you talk on the phone with friends or family?: three or more times per week How often do you get together with friends or relatives?: three or more times per week Panel score (0-1 are the most socially isolated patients): 1 What type of physical activity do you participate in: none Seatbelt use: sometimes Fire extinguisher in home: No Carbon monox detector in home: No Firearms in home: No Do you feel safe at home: Yes Meds Allergies and Home Medications Allergies Allergy/AdvReac Type Severity Reaction Status Date / Time No Known Allergies Allergy Verified 07/04/22 18:13 Home Medications Medication Instructions Recorded Confirmed Type methadone 40 mg soluble tablet 170 mg PO DAILY 03/10/20 07/04/22 History bupropion HCl (smoking deter) 150 See Rx Instructions PO BID #180 08/11/21 07/04/22 Rx mg tablet,12 hr tabs sustained-release(smoking deterrent) indomethacin 50 mg capsule 50 mg PO TID PRN gout attacks #30 08/11/21 07/04/22 Rx caps cyclobenzaprine 7.5 mg tablet 7.5 mg PO TID PRN #10 tabs 08/29/21 07/04/22 Rx clonidine HCl 0.2 mg tablet 0.2 mg PO TID PRN alcohol 05/17/22 07/04/22 Rx withdrawal #90 tabs promethazine 25 mg tablet 25 mg PO TID PRN nausea and 05/17/22 07/04/22 Rx vomiting #90 tabs Exam Narrative Exam Narrative: Middle-aged white male lying on the gurney in the emergency department in no acute distress. He is alert oriented to person place and circumstance. However he is a poor historian and gives unreliable details as to his presentation to the emergency department. HEENT is remarkable for edentulous oropharynx no exudates mucous membranes are moist Neck is supple no overt JVD normal carotid pulses supple nontender Lungs are clear with prolonged expiratory phase no rhonchi no rales Heart is regular without appreciable murmur rub or gallop Abdomen slight distention with normal bowel sounds soft with tenderness in the right upper quadrant without rebound tenderness he does have some voluntary guarding and has a positive Ahuja sign Lower extremities with venous varicosities he has some abrasions over his right patella and his left orourke. No purulent drainage. No calf tenderness or swelling Neuro exam grossly intact no tremors no dysarthric speech no facial asymmetry normal range of motion and strength in both upper and lower extremities. Results Labs Result diagrams: 07/04/22 18:50 07/04/22 18:50 Labs: Laboratory Results - last 24 hr 07/04/22 07/04/22 07/04/22 18:40 18:40 18:50 WBC RBC Hgb Hct MCV MCH MCHC RDW Plt Count MPV Immature Gran % Neutrophils % Lymphocytes % Monocytes % Eosinophils % Basophils % Nucleated RBC % Absolute Neutrophils Absolute Lymphocytes Absolute Monocytes Absolute Eosinophils Absolute Basophils Sodium 137 Potassium 3.5 Chloride 98 Carbon Dioxide 31.7 Anion Gap 7.3 BUN 7 Creatinine 0.8 Est GFR (CKD-EPI 2020) 100.69 Glucose 111 H Calcium 8.7 Total Bilirubin 0.7 AST 92 H ALT 45 Alkaline Phosphatase 155 H Total Protein 7.9 Albumin 3.9 Lipase Urine Color Yellow Urine Clarity Sl Cloudy Urine pH 7.5 Ur Specific [place] 1.020 Urine Protein Negative Urine Ketones Negative Urine Blood Trace-lysed H Urine Nitrite Negative Urine Bilirubin Negative Urine Urobilinogen 1.0 H Ur Leukocyte Esterase Negative Urine RBC 3-5 H Urine WBC 0-2 Ur Epithelial Cells Few Urine Crystals Few Amorphous Urine Bacteria Few Urine Mucus Negative Ur Culture Indicated? No Urine Glucose Negative Urine Opiates Screen Negative Urine Methadone Screen Positive A Ur Barbiturates Screen Negative Ur Tricyclics Screen Negative Ur Amphetamines Screen Negative U Benzodiazepines Scrn Negative Urine Cocaine Screen Negative Ur THC Screen Negative Ethyl Alcohol 145.2 H 07/04/22 07/04/22 18:50 18:50 WBC 4.68 RBC 4.42 Hgb 14.7 Hct 42.0 MCV 95 MCH 33.3 H MCHC 35.0 RDW 13.3 Plt Count 203 MPV 8.5 Immature Gran % 0.0 Neutrophils % 68.0 Lymphocytes % 23.1 Monocytes % 8.3 Eosinophils % 0.2 Basophils % 0.4 Nucleated RBC % 0.0 Absolute Neutrophils 3.18 Absolute Lymphocytes 1.08 L Absolute Monocytes 0.39 Absolute Eosinophils 0.01 Absolute Basophils 0.02 Sodium Potassium Chloride Carbon Dioxide Anion Gap BUN Creatinine Est GFR (CKD-EPI 2020) Glucose Calcium Total Bilirubin AST ALT Alkaline Phosphatase Total Protein Albumin Lipase 505 H Urine Color Urine Clarity Urine pH Ur Specific [place] Urine Protein Urine Ketones Urine Blood Urine Nitrite Urine Bilirubin Urine Urobilinogen Ur Leukocyte Esterase Urine RBC Urine WBC Ur Epithelial Cells Urine Crystals Urine Bacteria Urine Mucus Ur Culture Indicated? Urine Glucose Urine Opiates Screen Urine Methadone Screen Ur Barbiturates Screen Ur Tricyclics Screen Ur Amphetamines Screen U Benzodiazepines Scrn Urine Cocaine Screen Ur THC Screen Ethyl Alcohol Last Vital Signs Temp 36.8 C 07/04/22 18:09 Pulse 86 07/04/22 22:16 Resp 22 07/04/22 22:20 BP 147/80 H 07/04/22 22:16 Pulse Ox 100 07/04/22 22:20 PAWSS Have you Been Recently Intoxicated or Drunk Within the Last 30 days?: Yes Have you Ever Experienced Previous Episodes of Alcohol Withdrawal?: Yes Have you ever Experienced Withdrawal Seizures?: No Have you ever Experienced Delirium Tremens(DT)s?: No Have you ever undergone Alcohol Rehabilitation Treatment (i.e, inpt ot outpatient treatment programs)?: Yes Have you ever Experienced Blackouts?: Yes Have you ever Combined Alcohol with other Downers within the last 90 days?: No Have you ever Combined Alcohol with any other Substance of Abuse during the last 90 days?: No Result: 4
[2022-07-04] MEDS: MAGNESIUM SULFATE 8.12 MEQ, MULTIVITAMIN 10 ML, THIAMINE 100 MG, FOLIC ACID 1 MG in Nor... 168.867 MG IV (22:59)
[2022-07-04 23:42] LABS: Source Nasal/Nares
[2022-07-05] VITALS (11 sets, daily range): BP systolic 134–178; BP diastolic 71–97; PULSE 76–103; RESP 14–18; TEMP 35.6–37.1; O2SAT 95–100
--- NOTE | 2022-07-05 | DI.RAD_ITS ---
Exam(s) XR SHOULDER LT COMPLETE 2+V XR HUMERUS LT EXAM: XR HUMERUS LT and XR shoulder LT complete 2+ view CLINICAL HISTORY: ?LUE fracture. TECHNIQUE: 2D digital imaging was performed of the left humerus. Seven images were obtained. AP, G rashey, Y and axillary and lateral views were obtained. COMPARISON: CR XR SHOULDER LT COMPLETE 2+V from 07/05/2022 FINDINGS: BONES: No acute fracture is present. No bony destructive lesion is seen. Mild degenerative changes ar e seen at both the acromioclavicular and glenohumeral joints. SOFT TISSUE: Normal. IMPRESSION: No acute fracture or dislocation. DATA REPOSITORY: RADIATION DOSE DELIVERED:
[2022-07-05 00:13] LABS: COVID-19 PCR Negative (Negative)
[2022-07-05] MEDS: chlordiazePOXIDE 25 MG CAP 50 MG PO ×5 (01:26→20:31)
[2022-07-05 02:13] LABS: Troponin I < 50 ng/L (<or=60)
[2022-07-05] MEDS: HYDROmorphone 2 MG/ML SYR IVP ×2 (03:26→07:55)
[2022-07-05] MEDS: Normal Saline Flush 10 ML SYR IVP ×4 (05:15→16:35)
[2022-07-05] MEDS: ACETAMINOPHEN 1,000 MG/100 ML BTL 400 MG IVPB (06:18)
[2022-07-05] MEDS: Normal Saline 500 ML 30 ML IV (06:18)
[2022-07-05] MEDS: LORazepam 1 MG TAB 2 MG PO ×2 (06:32→08:25)
--- NOTE | 2022-07-05 07:00 | DI.MRI_ITS ---
Exam(s) MR ABDOMEN WO EXAM: MR ABDOMEN WO CLINICAL HISTORY: gall stone pancreatitis TECHNIQUE: Multiplanar multisequence MRI of the Abdomen was performed. The patient was unable to c omplete the examination. MRCP was not performed. COMPARISON: Comparison CT examination is 07/04/2022. FINDINGS: The examination is limited due to patient motion artifact. Liver: Unremarkable. Pancreas: There is no evidence of a pancreatic mass or significant pancreatic ductal dilatation. No peripancreatic fluid collections are seen to suggest abscess or pseudocyst. Gallbladder and Bile Ducts: Cholelithiasis is present. The common duct measures up to 0.9 cm. No ch oledocholithiasis is seen. Adrenals: Unremarkable. Kidneys: Unremarkable. Spleen: Unremarkable. Bowel: Unremarkable. Aorta: Unremarkable. Soft Tissues: Unremarkable. Bone: Unremarkable. Lymph Nodes: Unremarkable. IMPRESSION: 1. Suboptimal examination due to significant patient motion artifact. The patient was also unable to complete the examination. 2. Cholelithiasis. Dilatation of the extrahepatic bile duct up to 9 mm. No evidence of choledocholi thiasis. 3. No evidence of a pancreatic mass or peripancreatic fluid collection. DATA REPOSITORY:
--- NOTE | 2022-07-05 07:00 | DI.US_ITS ---
Exam(s) US ABDOMEN LIMITED EXAM: US ABDOMEN LIMITED CLINICAL HISTORY: pancreatitis, gall stones TECHNIQUE: Ultrasound abdomen performed using standard protocol. COMPARISON: CT CT ABDOMEN PELVIS W from 07/04/2022 MR MR ABDOMEN WO from 07/05/2022 FINDINGS: PANCREAS: Normal where visualized. LIVER: There is diffuse increased echogenicity of the liver consistent with fatty infiltration. Hepa topedal flow in the Portal Vein. The liver measures in 14.5 cm length. GALLBLADDER:Cholelithiasis. No evidence of wall thickening. No pericholecystic fluid identified. BILIARY SYSTEM: Common bile duct measures 7.5 mm. No intrahepatic biliary ductal dilation. AHUJA'S SIGN: Negative. RIGHT KIDNEY: Kidney is normal in size. No evidence of renal calculi. No evidence of hydronephrosis. No renal mass or cyst identified. ASCITES: None seen. ABDOMINAL AORTA AND IVC: Visualized portions normal caliber. IMPRESSION: 1. Cholelithiasis. No biliary ductal dilatation seen sonographically. There is a negative sonograph ic Ahuja sign. 2. Hepatic steatosis. DATA REPOSITORY:
[2022-07-05 07:15] LABS: Abs Immature Grans 0.02 10^3/uL (0.0-0.06); Absolute Basophil Count 0.01 10^3/uL (0.0-0.2); Absolute Eosinophil Count 0.03 10^3/uL (0.0-0.7); Absolute Lymphocyte Count 0.91 10^3/uL (1.2-3.4); Absolute Monocyte Count 0.36 10^3/uL (0.1-0.8); Absolute Neutrophil Count 2.45 10^3/uL (1.2-6.7); Basophils % 0.3; Eosinophils % 0.8; HCT 41.3 % (40.0-50.0); HGB 13.9 g/dL (13.5-17.5); Immature Grans % 0.5; Lymphocytes % 24.1; MCH 32.5 pg (27.0-33.0); MCHC 33.7 % (32.0-36.0); MCV 97 fL (80-95); MPV 8.9 fL (8.0-11.0); Monocytes % 9.5; Neutrophils % 64.8; Platelet Count 143 10^3/uL (130-400); RBC 4.28 10^6/uL (4.36-5.78); RDW 13.2 % (11.8-14.1); RDW-SD 47.3 fL; WBC 3.78 10^3/uL (4.4-10.8)
[2022-07-05 07:34] LABS: ALT 36 U/L (16-63); AST 71 U/L (15-37); Albumin 3.7 g/dL (3.4-5.0); Alkaline Phosphatase 154 U/L (46-116); Anion Gap 8.2 mmol/L (3-11); BUN 7 mg/dL (7-18); Bilirubin, Total 1.4 mg/dL (0.2-1.0); CO2 25.8 mmol/L (21.0-32.0); CREATININE 0.8 mg/dL (0.70-1.30); Calcium 8.5 mg/dL (8.5-10.1); Calculated LDL 37 mg/dL (<100); Chloride 103 mmol/L (98-107); Cholesterol 128 mg/dL (<200); Estimated GFR 100.69 (mL/min/1.73m2); Glucose 100 mg/dL (74-106); HDL Cholesterol 81 mg/dL (40-60); Sodium 137 mmol/L (136-145); Total Protein 7.3 g/dL (6.4-8.2); Triglyceride 50 mg/dL (<150)
[2022-07-05 07:39] LABS: Potassium 2.9 mmol/L (3.5-5.1)
[2022-07-05 07:48] LABS: Hemoglobin A1C 5.4 % (<5.7)
[2022-07-05] MEDS: Enoxaparin 40 MG/0.4 ML SYR SC (08:06)
[2022-07-05] MEDS: Thiamine 100 MG TAB PO (08:07)
[2022-07-05] MEDS: Folic Acid 1 MG TAB PO (08:07)
[2022-07-05] MEDS: Multivitamin TAB 1 TAB PO (08:07)
[2022-07-05 09:10] LABS: *AMPHETAMINES SCREEN URINE Negative (Negative); *BARBITURATES SCREEN URINE Negative (Negative); *BENZODIAZEPINES SCREEN URINE Negative (Negative); Cannabinoids THC Negative (Negative); Cocaine Screen,Urine Negative (Negative); METHADONE URINE SCREEN Positive (Negative); OPIATES URINE SCREEN Positive (Negative)
[2022-07-05 09:16] LABS: Tricyclic Antidepressants Negative (Negative)
[2022-07-05] MEDS: MULTIVITAMIN 10 ML, THIAMINE 100 MG, FOLIC ACID 1 MG in DEXTROSE 5%-0.45% SALINE 1,000 ML 150 ML IV (10:06)
[2022-07-05] MEDS: POTASSIUM CHLORIDE 20 MEQ/100 ML BAG 50 MEQ IVPB ×2 (10:08→16:35)
[2022-07-05] MEDS: LORazepam 2 MG/ML VIAL IVP (10:22)
--- NOTE | 2022-07-05 10:25 | NUR.NOTE ---
Addendum entered by Denita Hollingsworth RN 07/05/22 10:55: This RN is the original newspaper writer of the following note. Ativan was given, 3 mg IV, with good effect. However, IV potassium was started just after the Ativan was given, which caused severe pain in the patient left arm. Patient began to scream and thrash about. IV was disconnected and IV was flushed. Patient was calmed, and IV was restarted at a slower rate. Again, patient began to scream in pain. IV was disconnected and flushed and patient was calmed. Patient's methadone (170mg) arrived, and the patient was given his daily dose. After several minutes, he fell asleep. Patient was given a cold cloth for his forehead and comfort given. Original Note: Patient became very diaphoretic, BP 134/71, Respirations were 22. Two separate nurses scored the patient at 14 and 18 on the CIWA scale. Per CIWA protocol, 3 mg IV Ativan given in lefNursing Note:
[2022-07-05] MEDS: Methadone Liquid 10 MG/ML 170 MG PO (10:39)
[2022-07-05] MEDS: Potassium Chloride 20 MEQ TABCR PO (11:10)
--- NOTE | 2022-07-05 11:28 | INITIAL_ITS ---
- If Service Date Differs Date of service: 07/05/22 Time of Service: 11:28 Care Management Initial Assess REASON FOR HOSPITALIZATION:: Alcohol intoxication, gallstone pancreatitis PAST MEDICAL HISTORY/PAST SURGICAL HISTORY:: Medical History . ADHD. Alcoholism. Anemia of chronic disease. Depressive disorder. Essential hypertension. GERD (gastroesophageal reflux disease). Gout. Tobacco use disorder. Type II diabetes mellitus. Surgical History . History of foot surgery. History of tonsillectomy PREVIOUS FUNCTIONAL STATUS/SOCIAL/FAMILY SUPPORTS:: Resides in [place] with , Lisa. CURRENT FUNCTIONAL STATUS:: Unable to engage due to ETOH withdrawal. Ativan and methadone utilized today, currently somnolent. ADVANCE DIRECTIVES:: None on file. Has patient been provided with info about the portal/API?: No Did the patient sign up for the portal?: No CODE STATUS:: Full Code INSURANCE COVERAGE / FINANCIAL ISSUES:: Medicare. Medicaid CURRENT HOME/COMMUNITY SERVICES/EQUIPMENT:: Unable to obtain. PRIMARY CARE PHYSICIAN:: Rafi Macedo POTENTIAL DISCHARGE NEEDS:: Tractor Sweeper Driver consult, follow up appointments, VENANCIO assessment; [place] intervention. PATIENT/FAMILY EDUCATION NEEDS:: Review discharge instructions, community to inpatient VENANCIO supports. ANTICIPATED BARRIERS TO DISCHARGE:: ETOH withdrawal. TRANSPORTATION:: Via private vehicle with . PLAN:: Anticipate [facility] will discharge when ready per MD. Comprehensive CM assessment to be completed when [facility] is through withdrawal and able to engage.
--- NOTE | 2022-07-05 13:42 | SCONE_ITS ---
Date of service: 07/05/22 Time of Service: 13:42 History of Present Illness Narrative: FINDINGS: PANCREAS: Normal where visualized. LIVER: There is diffuse increased echogenicity of the liver consistent with fatty infiltration.? Hepatopedal flow in the Portal Vein. The liver measures in 14.5 cm length. GALLBLADDER:Cholelithiasis.? No evidence of wall thickening. No pericholecystic fluid identified. BILIARY SYSTEM: Common bile duct measures 7.5 mm.? No intrahepatic biliary ductal dilation. AHUJA'S SIGN: Negative. RIGHT KIDNEY: Kidney is normal in size.? No evidence of renal calculi. No evidence of hydronephrosis. No renal mass or cyst identified. ASCITES: None seen. ABDOMINAL AORTA AND IVC: Visualized portions normal caliber. IMPRESSION: 1. Cholelithiasis.? No biliary ductal dilatation seen sonographically.? There is a negative sonographic Ahuja sign. 2. Hepatic steatosis.? PFSH All Active Problems Acute gallstone pancreatitis (Acute) Alcohol intoxication (Acute) No-show for appointment (Acute) Arthritis of right glenohumeral joint (Acute) Fracture of right clavicle (Acute) distal clavicle 12/12/21 Nausea (Acute) Varicose veins of both lower extremities (Acute) Hyperglycemia (Acute) Low back pain (Acute) Prostatitis (Acute) Inflammatory disease of liver (Chronic) Atrophic gastritis (Acute) Heart block (Acute) Claustrophobia (Acute) Vitamin D deficiency (Acute) Disorder of endocrine system (Acute) Medical History ADHD Alcoholism Anemia of chronic disease Depressive disorder Essential hypertension GERD (gastroesophageal reflux disease) Gout Tobacco use disorder Type II diabetes mellitus Surgical History History of foot surgery History of tonsillectomy Social History Smoking/Tobacco Use Status: Current every day Quit status: considering quitting Counseling given: support medications Smoking risk assessment performed?: Yes Alcohol Intake: current Alcohol Intake frequency: 3 or more drinks per day Drug use: Current Sobriety Substance use type: does not use Details: H/O substance abuse - heroin Adopted: No Housing: other Details: [place]or Communication Needs: None current occupation: disabled Pets and animals: No Current gender identity: male What is your relationship status?: don't know How often do you talk on the phone with friends or family?: three or more times per week How often do you get together with friends or relatives?: three or more times per week Panel score (0-1 are the most socially isolated patients): 1 What type of physical activity do you participate in: none Seatbelt use: sometimes Fire extinguisher in home: No Carbon monox detector in home: No Firearms in home: No Do you feel safe at home: Yes Results Last Vital Signs Temp 36.3 C L 07/05/22 10:13 Pulse 97 H 07/05/22 10:13 Resp 18 07/05/22 10:13 BP 134/71 07/05/22 10:13 Pulse Ox 99 07/05/22 10:13 Labs Result diagrams: 07/05/22 06:15 07/05/22 06:15 Labs: Laboratory Results - last 24 hr 07/04/22 07/04/22 07/04/22 18:40 18:40 18:50 WBC RBC Hgb Hct MCV MCH MCHC RDW Plt Count MPV Immature Gran % Neutrophils % Lymphocytes % Monocytes % Eosinophils % Basophils % Nucleated RBC % Absolute Neutrophils Absolute Lymphocytes Absolute Monocytes Absolute Eosinophils Absolute Basophils Sodium 137 Potassium 3.5 Chloride 98 Carbon Dioxide 31.7 Anion Gap 7.3 BUN 7 Creatinine 0.8 Est GFR (CKD-EPI 2020) 100.69 Glucose 111 H Hemoglobin A1c Calcium 8.7 Magnesium Total Bilirubin 0.7 AST 92 H ALT 45 Alkaline Phosphatase 155 H Troponin I Total Protein 7.9 Albumin 3.9 Triglycerides Total Cholesterol LDL Cholesterol, Calc HDL Cholesterol Lipase Urine Color Yellow Urine Clarity Sl Cloudy Urine pH 7.5 Ur Specific [place] 1.020 Urine Protein Negative Urine Ketones Negative Urine Blood Trace-lysed H Urine Nitrite Negative Urine Bilirubin Negative Urine Urobilinogen 1.0 H Ur Leukocyte Esterase Negative Urine RBC 3-5 H Urine WBC 0-2 Ur Epithelial Cells Few Urine Crystals Few Amorphous Urine Bacteria Few Urine Mucus Negative Ur Culture Indicated? No Urine Glucose Negative Urine Opiates Screen Negative Urine Methadone Screen Positive A Ur Barbiturates Screen Negative Ur Tricyclics Screen Negative Ur Amphetamines Screen Negative U Benzodiazepines Scrn Negative Urine Cocaine Screen Negative Ur THC Screen Negative Ethyl Alcohol 145.2 H COVID-19 Source SARS-CoV-2 (PCR) 07/04/22 07/04/22 07/04/22 18:50 18:50 22:48 WBC 4.68 RBC 4.42 Hgb 14.7 Hct 42.0 MCV 95 MCH 33.3 H MCHC 35.0 RDW 13.3 Plt Count 203 MPV 8.5 Immature Gran % 0.0 Neutrophils % 68.0 Lymphocytes % 23.1 Monocytes % 8.3 Eosinophils % 0.2 Basophils % 0.4 Nucleated RBC % 0.0 Absolute Neutrophils 3.18 Absolute Lymphocytes 1.08 L Absolute Monocytes 0.39 Absolute Eosinophils 0.01 Absolute Basophils 0.02 Sodium Potassium Chloride Carbon Dioxide Anion Gap BUN Creatinine Est GFR (CKD-EPI 2020) Glucose Hemoglobin A1c Calcium Magnesium Total Bilirubin AST ALT Alkaline Phosphatase Troponin I Cancelled Total Protein Albumin Triglycerides Total Cholesterol LDL Cholesterol, Calc HDL Cholesterol Lipase 505 H Urine Color Urine Clarity Urine pH Ur Specific [place] Urine Protein Urine Ketones Urine Blood Urine Nitrite Urine Bilirubin Urine Urobilinogen Ur Leukocyte Esterase Urine RBC Urine WBC Ur Epithelial Cells Urine Crystals Urine Bacteria Urine Mucus Ur Culture Indicated? Urine Glucose Urine Opiates Screen Urine Methadone Screen Ur Barbiturates Screen Ur Tricyclics Screen Ur Amphetamines Screen U Benzodiazepines Scrn Urine Cocaine Screen Ur THC Screen Ethyl Alcohol COVID-19 Source SARS-CoV-2 (PCR) 07/04/22 07/05/22 07/05/22 23:15 01:43 01:43 WBC RBC Hgb Hct MCV MCH MCHC RDW Plt Count MPV Immature Gran % Neutrophils % Lymphocytes % Monocytes % Eosinophils % Basophils % Nucleated RBC % Absolute Neutrophils Absolute Lymphocytes Absolute Monocytes Absolute Eosinophils Absolute Basophils Sodium Potassium Chloride Carbon Dioxide Anion Gap BUN Creatinine Est GFR (CKD-EPI 2020) Glucose Hemoglobin A1c Calcium Magnesium 2.0 Total Bilirubin AST ALT Alkaline Phosphatase Troponin I < 50 Total Protein Albumin Triglycerides Total Cholesterol LDL Cholesterol, Calc HDL Cholesterol Lipase Urine Color Urine Clarity Urine pH Ur Specific [place] Urine Protein Urine Ketones Urine Blood Urine Nitrite Urine Bilirubin Urine Urobilinogen Ur Leukocyte Esterase Urine RBC Urine WBC Ur Epithelial Cells Urine Crystals Urine Bacteria Urine Mucus Ur Culture Indicated? Urine Glucose Urine Opiates Screen Urine Methadone Screen Ur Barbiturates Screen Ur Tricyclics Screen Ur Amphetamines Screen U Benzodiazepines Scrn Urine Cocaine Screen Ur THC Screen Ethyl Alcohol COVID-19 Source Nasal/Nares SARS-CoV-2 (PCR) Negative 07/05/22 07/05/22 07/05/22 06:15 06:15 06:15 WBC 3.78 L RBC 4.28 L Hgb 13.9 Hct 41.3 MCV 97 H MCH 32.5 MCHC 33.7 RDW 13.2 Plt Count 143 MPV 8.9 Immature Gran % 0.5 Neutrophils % 64.8 Lymphocytes % 24.1 Monocytes % 9.5 Eosinophils % 0.8 Basophils % 0.3 Nucleated RBC % 0.0 Absolute Neutrophils 2.45 Absolute Lymphocytes 0.91 L Absolute Monocytes 0.36 Absolute Eosinophils 0.03 Absolute Basophils 0.01 Sodium 137 Potassium 2.9 L Chloride 103 Carbon Dioxide 25.8 Anion Gap 8.2 BUN 7 Creatinine 0.8 Est GFR (CKD-EPI 2020) 100.69 Glucose 100 Hemoglobin A1c 5.4 Calcium 8.5 Magnesium Total Bilirubin 1.4 H AST 71 H ALT 36 Alkaline Phosphatase 154 H Troponin I Total Protein 7.3 Albumin 3.7 Triglycerides 50 Total Cholesterol 128 LDL Cholesterol, Calc 37 HDL Cholesterol 81 Lipase Urine Color Urine Clarity Urine pH Ur Specific [place] Urine Protein Urine Ketones Urine Blood Urine Nitrite Urine Bilirubin Urine Urobilinogen Ur Leukocyte Esterase Urine RBC Urine WBC Ur Epithelial Cells Urine Crystals Urine Bacteria Urine Mucus Ur Culture Indicated? Urine Glucose Urine Opiates Screen Urine Methadone Screen Ur Barbiturates Screen Ur Tricyclics Screen Ur Amphetamines Screen U Benzodiazepines Scrn Urine Cocaine Screen Ur THC Screen Ethyl Alcohol COVID-19 Source SARS-CoV-2 (PCR) 07/05/22 07/05/22 06:15 08:38 WBC RBC Hgb Hct MCV MCH MCHC RDW Plt Count MPV Immature Gran % Neutrophils % Lymphocytes % Monocytes % Eosinophils % Basophils % Nucleated RBC % Absolute Neutrophils Absolute Lymphocytes Absolute Monocytes Absolute Eosinophils Absolute Basophils Sodium Potassium Chloride Carbon Dioxide Anion Gap BUN Creatinine Est GFR (CKD-EPI 2020) Glucose Hemoglobin A1c Calcium Magnesium Total Bilirubin AST ALT Alkaline Phosphatase Troponin I Total Protein Albumin Triglycerides Cancelled Total Cholesterol Cancelled LDL Cholesterol, Calc Cancelled HDL Cholesterol Cancelled Lipase Urine Color Urine Clarity Urine pH Ur Specific [place] Urine Protein Urine Ketones Urine Blood Urine Nitrite Urine Bilirubin Urine Urobilinogen Ur Leukocyte Esterase Urine RBC Urine WBC Ur Epithelial Cells Urine Crystals Urine Bacteria Urine Mucus Ur Culture Indicated? Urine Glucose Urine Opiates Screen Positive A Urine Methadone Screen Positive A Ur Barbiturates Screen Negative Ur Tricyclics Screen Negative Ur Amphetamines Screen Negative U Benzodiazepines Scrn Negative Urine Cocaine Screen Negative Ur THC Screen Negative Ethyl Alcohol COVID-19 Source SARS-CoV-2 (PCR)
--- NOTE | 2022-07-05 15:23 | W.PM.PROGNOT ---
Date of Service Date of service: 07/05/22 Time of Service: 15:23 Assessment and Plan Assessment and plan (1) Acute gallstone pancreatitis: Status: Acute (2) Narcotic withdrawal: Status: Acute (3) Alcohol dependence with withdrawal: Status: Acute Assessment and plan: Patient was received a large amount of Ativan and methadone today. Currently he is somnolent but maintaining his O2 sats. But he is unable to answer any questions and participate in exam. He is not running a fever. He has no white count. Ultrasound does show gallstones. But no dilated ducts. We will watch his bilirubin closely which is climbed today. There is no sign of acute cholecystitis patient is not currently stable for surgery Because of his acute withdrawal Objective Last Vital Signs Temp 36.2 C L 07/05/22 13:47 Pulse 92 H 07/05/22 13:47 Resp 16 07/05/22 13:47 BP 158/91 H 07/05/22 13:47 Pulse Ox 96 07/05/22 13:47 Laboratory Results - last 24 hr 07/04/22 07/04/22 07/04/22 18:40 18:40 18:50 WBC RBC Hgb Hct MCV MCH MCHC RDW Plt Count MPV Immature Gran % Neutrophils % Lymphocytes % Monocytes % Eosinophils % Basophils % Nucleated RBC % Absolute Neutrophils Absolute Lymphocytes Absolute Monocytes Absolute Eosinophils Absolute Basophils Sodium 137 Potassium 3.5 Chloride 98 Carbon Dioxide 31.7 Anion Gap 7.3 BUN 7 Creatinine 0.8 Est GFR (CKD-EPI 2020) 100.69 Glucose 111 H Hemoglobin A1c Calcium 8.7 Magnesium Total Bilirubin 0.7 AST 92 H ALT 45 Alkaline Phosphatase 155 H Troponin I Total Protein 7.9 Albumin 3.9 Triglycerides Total Cholesterol LDL Cholesterol, Calc HDL Cholesterol Lipase Urine Color Yellow Urine Clarity Sl Cloudy Urine pH 7.5 Ur Specific [place] 1.020 Urine Protein Negative Urine Ketones Negative Urine Blood Trace-lysed H Urine Nitrite Negative Urine Bilirubin Negative Urine Urobilinogen 1.0 H Ur Leukocyte Esterase Negative Urine RBC 3-5 H Urine WBC 0-2 Ur Epithelial Cells Few Urine Crystals Few Amorphous Urine Bacteria Few Urine Mucus Negative Ur Culture Indicated? No Urine Glucose Negative Urine Opiates Screen Negative Urine Methadone Screen Positive A Ur Barbiturates Screen Negative Ur Tricyclics Screen Negative Ur Amphetamines Screen Negative U Benzodiazepines Scrn Negative Urine Cocaine Screen Negative Ur THC Screen Negative Ethyl Alcohol 145.2 H COVID-19 Source SARS-CoV-2 (PCR) 07/04/22 07/04/22 07/04/22 18:50 18:50 22:48 WBC 4.68 RBC 4.42 Hgb 14.7 Hct 42.0 MCV 95 MCH 33.3 H MCHC 35.0 RDW 13.3 Plt Count 203 MPV 8.5 Immature Gran % 0.0 Neutrophils % 68.0 Lymphocytes % 23.1 Monocytes % 8.3 Eosinophils % 0.2 Basophils % 0.4 Nucleated RBC % 0.0 Absolute Neutrophils 3.18 Absolute Lymphocytes 1.08 L Absolute Monocytes 0.39 Absolute Eosinophils 0.01 Absolute Basophils 0.02 Sodium Potassium Chloride Carbon Dioxide Anion Gap BUN Creatinine Est GFR (CKD-EPI 2020) Glucose Hemoglobin A1c Calcium Magnesium Total Bilirubin AST ALT Alkaline Phosphatase Troponin I Cancelled Total Protein Albumin Triglycerides Total Cholesterol LDL Cholesterol, Calc HDL Cholesterol Lipase 505 H Urine Color Urine Clarity Urine pH Ur Specific [place] Urine Protein Urine Ketones Urine Blood Urine Nitrite Urine Bilirubin Urine Urobilinogen Ur Leukocyte Esterase Urine RBC Urine WBC Ur Epithelial Cells Urine Crystals Urine Bacteria Urine Mucus Ur Culture Indicated? Urine Glucose Urine Opiates Screen Urine Methadone Screen Ur Barbiturates Screen Ur Tricyclics Screen Ur Amphetamines Screen U Benzodiazepines Scrn Urine Cocaine Screen Ur THC Screen Ethyl Alcohol COVID-19 Source SARS-CoV-2 (PCR) 07/04/22 07/05/22 07/05/22 23:15 01:43 01:43 WBC RBC Hgb Hct MCV MCH MCHC RDW Plt Count MPV Immature Gran % Neutrophils % Lymphocytes % Monocytes % Eosinophils % Basophils % Nucleated RBC % Absolute Neutrophils Absolute Lymphocytes Absolute Monocytes Absolute Eosinophils Absolute Basophils Sodium Potassium Chloride Carbon Dioxide Anion Gap BUN Creatinine Est GFR (CKD-EPI 2020) Glucose Hemoglobin A1c Calcium Magnesium 2.0 Total Bilirubin AST ALT Alkaline Phosphatase Troponin I < 50 Total Protein Albumin Triglycerides Total Cholesterol LDL Cholesterol, Calc HDL Cholesterol Lipase Urine Color Urine Clarity Urine pH Ur Specific [place] Urine Protein Urine Ketones Urine Blood Urine Nitrite Urine Bilirubin Urine Urobilinogen Ur Leukocyte Esterase Urine RBC Urine WBC Ur Epithelial Cells Urine Crystals Urine Bacteria Urine Mucus Ur Culture Indicated? Urine Glucose Urine Opiates Screen Urine Methadone Screen Ur Barbiturates Screen Ur Tricyclics Screen Ur Amphetamines Screen U Benzodiazepines Scrn Urine Cocaine Screen Ur THC Screen Ethyl Alcohol COVID-19 Source Nasal/Nares SARS-CoV-2 (PCR) Negative 07/05/22 07/05/22 07/05/22 06:15 06:15 06:15 WBC 3.78 L RBC 4.28 L Hgb 13.9 Hct 41.3 MCV 97 H MCH 32.5 MCHC 33.7 RDW 13.2 Plt Count 143 MPV 8.9 Immature Gran % 0.5 Neutrophils % 64.8 Lymphocytes % 24.1 Monocytes % 9.5 Eosinophils % 0.8 Basophils % 0.3 Nucleated RBC % 0.0 Absolute Neutrophils 2.45 Absolute Lymphocytes 0.91 L Absolute Monocytes 0.36 Absolute Eosinophils 0.03 Absolute Basophils 0.01 Sodium 137 Potassium 2.9 L Chloride 103 Carbon Dioxide 25.8 Anion Gap 8.2 BUN 7 Creatinine 0.8 Est GFR (CKD-EPI 2020) 100.69 Glucose 100 Hemoglobin A1c 5.4 Calcium 8.5 Magnesium Total Bilirubin 1.4 H AST 71 H ALT 36 Alkaline Phosphatase 154 H Troponin I Total Protein 7.3 Albumin 3.7 Triglycerides 50 Total Cholesterol 128 LDL Cholesterol, Calc 37 HDL Cholesterol 81 Lipase Urine Color Urine Clarity Urine pH Ur Specific [place] Urine Protein Urine Ketones Urine Blood Urine Nitrite Urine Bilirubin Urine Urobilinogen Ur Leukocyte Esterase Urine RBC Urine WBC Ur Epithelial Cells Urine Crystals Urine Bacteria Urine Mucus Ur Culture Indicated? Urine Glucose Urine Opiates Screen Urine Methadone Screen Ur Barbiturates Screen Ur Tricyclics Screen Ur Amphetamines Screen U Benzodiazepines Scrn Urine Cocaine Screen Ur THC Screen Ethyl Alcohol COVID-19 Source SARS-CoV-2 (PCR) 07/05/22 07/05/22 06:15 08:38 WBC RBC Hgb Hct MCV MCH MCHC RDW Plt Count MPV Immature Gran % Neutrophils % Lymphocytes % Monocytes % Eosinophils % Basophils % Nucleated RBC % Absolute Neutrophils Absolute Lymphocytes Absolute Monocytes Absolute Eosinophils Absolute Basophils Sodium Potassium Chloride Carbon Dioxide Anion Gap BUN Creatinine Est GFR (CKD-EPI 2020) Glucose Hemoglobin A1c Calcium Magnesium Total Bilirubin AST ALT Alkaline Phosphatase Troponin I Total Protein Albumin Triglycerides Cancelled Total Cholesterol Cancelled LDL Cholesterol, Calc Cancelled HDL Cholesterol Cancelled Lipase Urine Color Urine Clarity Urine pH Ur Specific [place] Urine Protein Urine Ketones Urine Blood Urine Nitrite Urine Bilirubin Urine Urobilinogen Ur Leukocyte Esterase Urine RBC Urine WBC Ur Epithelial Cells Urine Crystals Urine Bacteria Urine Mucus Ur Culture Indicated? Urine Glucose Urine Opiates Screen Positive A Urine Methadone Screen Positive A Ur Barbiturates Screen Negative Ur Tricyclics Screen Negative Ur Amphetamines Screen Negative U Benzodiazepines Scrn Negative Urine Cocaine Screen Negative Ur THC Screen Negative Ethyl Alcohol COVID-19 Source SARS-CoV-2 (PCR) PAWSS Have you Been Recently Intoxicated or Drunk Within the Last 30 days?: Unable to Obtain Have you Ever Experienced Previous Episodes of Alcohol Withdrawal?: Unable to Obtain Have you ever Experienced Withdrawal Seizures?: Unable to Obtain Have you ever Experienced Delirium Tremens(DT)s?: Unable to Obtain Have you ever undergone Alcohol Rehabilitation Treatment (i.e, inpt ot outpatient treatment programs)?: Unable to Obtain Have you ever Experienced Blackouts?: Unable to Obtain Have you ever Combined Alcohol with other Downers within the last 90 days?: Unable to Obtain Have you ever Combined Alcohol with any other Substance of Abuse during the last 90 days?: Unable to Obtain Positive Blood Alcohol level on Presentation? [PCS.BAL]: Unable to Obtain Evidence of Increased Autonomic Activity (i.e. HR>120, tremor, sweating, agitation, nausea)?: Unable to Obtain Result: 6
[2022-07-05 15:45] LABS: Lab Add On Test DONE
[2022-07-05 15:55] LABS: C-Reactive Protein < 0.05 mg/dL (0.0-0.3); Lipase 501 U/L (73-393)
[2022-07-05] MEDS: LORazepam 1 MG TAB PO/SL (17:12)
--- NOTE | 2022-07-05 17:59 | W.PM.PROGNOT ---
Date of Service Date of service: 07/05/22 Time of Service: 18:00 Assessment and Plan Assessment and plan (1) Alcohol dependence with withdrawal: Status: Acute Assessment and plan: Monitor on CIWA. Continue scheduled librium + prn ativan. Patient/partner indicate to me that the patient would be interested in going to outpatient alcohol rehab. (2) Alcoholic pancreatitis: Status: Acute Assessment and plan: No evidence of choledocholithiasis. Await surgical consultation but suspect this is alcoholic pancreatitis. IVF. Trial clear liquids. (3) Dilated bile duct: Status: Acute Assessment and plan: As above (4) Alcohol intoxication: Status: Acute Assessment and plan: As above (5) Essential hypertension: Assessment and plan: Monitor BP in setting of EtOH w/d (6) Type II diabetes mellitus: Assessment and plan: SSI (7) Narcotic withdrawal: Status: Acute Assessment and plan: Continue home methadone (8) Hypokalemia: Status: Acute Assessment and plan: Replete; recheck in am (9) DVT prophylaxis: Status: Acute Assessment and plan: SC enoxaparin (10) Discharge planning issues: Status: Acute Assessment and plan: Full code Subjective Subjective Interval history since last seen: Mr Rdz states that he is not in pain or nauseated. He denies chest pain. Reports L shoulder pain. He is just waking up and is not talking when answering my questions but nodding instead. He appears to still be under influence of librium, however. His partner says he normally talks. CIWA scores today have been up to 18. The latest, at 16:54, was 15. Exam Narrative Exam Narrative: General: middle-aged male who is somnolent, arousable, not responding in words but nods yes/shakes head no HEENT: EOMI, MMM, appears to have difficulty focusing on me Heart: RRR, no m/r/g Lungs: Diminished breath sounds B Abdomen: soft, nontender, nondistended Extremities: no edema BLEs Objective Last Vital Signs Temp 36.2 C L 07/05/22 13:47 Pulse 92 H 07/05/22 13:47 Resp 16 07/05/22 13:47 BP 158/91 H 07/05/22 13:47 Pulse Ox 96 07/05/22 13:47 Laboratory Results - last 24 hr 07/04/22 07/04/22 07/04/22 18:40 18:40 18:50 WBC RBC Hgb Hct MCV MCH MCHC RDW Plt Count MPV Immature Gran % Neutrophils % Lymphocytes % Monocytes % Eosinophils % Basophils % Nucleated RBC % Absolute Neutrophils Absolute Lymphocytes Absolute Monocytes Absolute Eosinophils Absolute Basophils Sodium 137 Potassium 3.5 Chloride 98 Carbon Dioxide 31.7 Anion Gap 7.3 BUN 7 Creatinine 0.8 Est GFR (CKD-EPI 2020) 100.69 Glucose 111 H Hemoglobin A1c Calcium 8.7 Magnesium Total Bilirubin 0.7 AST 92 H ALT 45 Alkaline Phosphatase 155 H Troponin I C-Reactive Protein Total Protein 7.9 Albumin 3.9 Triglycerides Total Cholesterol LDL Cholesterol, Calc HDL Cholesterol Lipase Urine Color Yellow Urine Clarity Sl Cloudy Urine pH 7.5 Ur Specific [place] 1.020 Urine Protein Negative Urine Ketones Negative Urine Blood Trace-lysed H Urine Nitrite Negative Urine Bilirubin Negative Urine Urobilinogen 1.0 H Ur Leukocyte Esterase Negative Urine RBC 3-5 H Urine WBC 0-2 Ur Epithelial Cells Few Urine Crystals Few Amorphous Urine Bacteria Few Urine Mucus Negative Ur Culture Indicated? No Urine Glucose Negative Urine Opiates Screen Negative Urine Methadone Screen Positive A Ur Barbiturates Screen Negative Ur Tricyclics Screen Negative Ur Amphetamines Screen Negative U Benzodiazepines Scrn Negative Urine Cocaine Screen Negative Ur THC Screen Negative Ethyl Alcohol 145.2 H COVID-19 Source SARS-CoV-2 (PCR) Add-On Test Request 07/04/22 07/04/22 07/04/22 18:50 18:50 22:48 WBC 4.68 RBC 4.42 Hgb 14.7 Hct 42.0 MCV 95 MCH 33.3 H MCHC 35.0 RDW 13.3 Plt Count 203 MPV 8.5 Immature Gran % 0.0 Neutrophils % 68.0 Lymphocytes % 23.1 Monocytes % 8.3 Eosinophils % 0.2 Basophils % 0.4 Nucleated RBC % 0.0 Absolute Neutrophils 3.18 Absolute Lymphocytes 1.08 L Absolute Monocytes 0.39 Absolute Eosinophils 0.01 Absolute Basophils 0.02 Sodium Potassium Chloride Carbon Dioxide Anion Gap BUN Creatinine Est GFR (CKD-EPI 2020) Glucose Hemoglobin A1c Calcium Magnesium Total Bilirubin AST ALT Alkaline Phosphatase Troponin I Cancelled C-Reactive Protein Total Protein Albumin Triglycerides Total Cholesterol LDL Cholesterol, Calc HDL Cholesterol Lipase 505 H Urine Color Urine Clarity Urine pH Ur Specific [place] Urine Protein Urine Ketones Urine Blood Urine Nitrite Urine Bilirubin Urine Urobilinogen Ur Leukocyte Esterase Urine RBC Urine WBC Ur Epithelial Cells Urine Crystals Urine Bacteria Urine Mucus Ur Culture Indicated? Urine Glucose Urine Opiates Screen Urine Methadone Screen Ur Barbiturates Screen Ur Tricyclics Screen Ur Amphetamines Screen U Benzodiazepines Scrn Urine Cocaine Screen Ur THC Screen Ethyl Alcohol COVID-19 Source SARS-CoV-2 (PCR) Add-On Test Request 07/04/22 07/05/22 07/05/22 23:15 01:43 01:43 WBC RBC Hgb Hct MCV MCH MCHC RDW Plt Count MPV Immature Gran % Neutrophils % Lymphocytes % Monocytes % Eosinophils % Basophils % Nucleated RBC % Absolute Neutrophils Absolute Lymphocytes Absolute Monocytes Absolute Eosinophils Absolute Basophils Sodium Potassium Chloride Carbon Dioxide Anion Gap BUN Creatinine Est GFR (CKD-EPI 2020) Glucose Hemoglobin A1c Calcium Magnesium 2.0 Total Bilirubin AST ALT Alkaline Phosphatase Troponin I < 50 C-Reactive Protein Total Protein Albumin Triglycerides Total Cholesterol LDL Cholesterol, Calc HDL Cholesterol Lipase Urine Color Urine Clarity Urine pH Ur Specific [place] Urine Protein Urine Ketones Urine Blood Urine Nitrite Urine Bilirubin Urine Urobilinogen Ur Leukocyte Esterase Urine RBC Urine WBC Ur Epithelial Cells Urine Crystals Urine Bacteria Urine Mucus Ur Culture Indicated? Urine Glucose Urine Opiates Screen Urine Methadone Screen Ur Barbiturates Screen Ur Tricyclics Screen Ur Amphetamines Screen U Benzodiazepines Scrn Urine Cocaine Screen Ur THC Screen Ethyl Alcohol COVID-19 Source Nasal/Nares SARS-CoV-2 (PCR) Negative Add-On Test Request 07/05/22 07/05/22 07/05/22 06:15 06:15 06:15 WBC 3.78 L RBC 4.28 L Hgb 13.9 Hct 41.3 MCV 97 H MCH 32.5 MCHC 33.7 RDW 13.2 Plt Count 143 MPV 8.9 Immature Gran % 0.5 Neutrophils % 64.8 Lymphocytes % 24.1 Monocytes % 9.5 Eosinophils % 0.8 Basophils % 0.3 Nucleated RBC % 0.0 Absolute Neutrophils 2.45 Absolute Lymphocytes 0.91 L Absolute Monocytes 0.36 Absolute Eosinophils 0.03 Absolute Basophils 0.01 Sodium 137 Potassium 2.9 L Chloride 103 Carbon Dioxide 25.8 Anion Gap 8.2 BUN 7 Creatinine 0.8 Est GFR (CKD-EPI 2020) 100.69 Glucose 100 Hemoglobin A1c 5.4 Calcium 8.5 Magnesium Total Bilirubin 1.4 H AST 71 H ALT 36 Alkaline Phosphatase 154 H Troponin I C-Reactive Protein Total Protein 7.3 Albumin 3.7 Triglycerides 50 Total Cholesterol 128 LDL Cholesterol, Calc 37 HDL Cholesterol 81 Lipase Urine Color Urine Clarity Urine pH Ur Specific [place] Urine Protein Urine Ketones Urine Blood Urine Nitrite Urine Bilirubin Urine Urobilinogen Ur Leukocyte Esterase Urine RBC Urine WBC Ur Epithelial Cells Urine Crystals Urine Bacteria Urine Mucus Ur Culture Indicated? Urine Glucose Urine Opiates Screen Urine Methadone Screen Ur Barbiturates Screen Ur Tricyclics Screen Ur Amphetamines Screen U Benzodiazepines Scrn Urine Cocaine Screen Ur THC Screen Ethyl Alcohol COVID-19 Source SARS-CoV-2 (PCR) Add-On Test Request 07/05/22 07/05/22 07/05/22 06:15 06:15 06:15 WBC RBC Hgb Hct MCV MCH MCHC RDW Plt Count MPV Immature Gran % Neutrophils % Lymphocytes % Monocytes % Eosinophils % Basophils % Nucleated RBC % Absolute Neutrophils Absolute Lymphocytes Absolute Monocytes Absolute Eosinophils Absolute Basophils Sodium Potassium Chloride Carbon Dioxide Anion Gap BUN Creatinine Est GFR (CKD-EPI 2020) Glucose Hemoglobin A1c Calcium Magnesium Total Bilirubin AST ALT Alkaline Phosphatase Troponin I C-Reactive Protein < 0.05 Total Protein Albumin Triglycerides Cancelled Total Cholesterol Cancelled LDL Cholesterol, Calc Cancelled HDL Cholesterol Cancelled Lipase 501 H Urine Color Urine Clarity Urine pH Ur Specific [place] Urine Protein Urine Ketones Urine Blood Urine Nitrite Urine Bilirubin Urine Urobilinogen Ur Leukocyte Esterase Urine RBC Urine WBC Ur Epithelial Cells Urine Crystals Urine Bacteria Urine Mucus Ur Culture Indicated? Urine Glucose Urine Opiates Screen Urine Methadone Screen Ur Barbiturates Screen Ur Tricyclics Screen Ur Amphetamines Screen U Benzodiazepines Scrn Urine Cocaine Screen Ur THC Screen Ethyl Alcohol COVID-19 Source SARS-CoV-2 (PCR) Add-On Test Request DONE 07/05/22 08:38 WBC RBC Hgb Hct MCV MCH MCHC RDW Plt Count MPV Immature Gran % Neutrophils % Lymphocytes % Monocytes % Eosinophils % Basophils % Nucleated RBC % Absolute Neutrophils Absolute Lymphocytes Absolute Monocytes Absolute Eosinophils Absolute Basophils Sodium Potassium Chloride Carbon Dioxide Anion Gap BUN Creatinine Est GFR (CKD-EPI 2020) Glucose Hemoglobin A1c Calcium Magnesium Total Bilirubin AST ALT Alkaline Phosphatase Troponin I C-Reactive Protein Total Protein Albumin Triglycerides Total Cholesterol LDL Cholesterol, Calc HDL Cholesterol Lipase Urine Color Urine Clarity Urine pH Ur Specific [place] Urine Protein Urine Ketones Urine Blood Urine Nitrite Urine Bilirubin Urine Urobilinogen Ur Leukocyte Esterase Urine RBC Urine WBC Ur Epithelial Cells Urine Crystals Urine Bacteria Urine Mucus Ur Culture Indicated? Urine Glucose Urine Opiates Screen Positive A Urine Methadone Screen Positive A Ur Barbiturates Screen Negative Ur Tricyclics Screen Negative Ur Amphetamines Screen Negative U Benzodiazepines Scrn Negative Urine Cocaine Screen Negative Ur THC Screen Negative Ethyl Alcohol COVID-19 Source SARS-CoV-2 (PCR) Add-On Test Request PAWSS Have you Been Recently Intoxicated or Drunk Within the Last 30 days?: Unable to Obtain Have you Ever Experienced Previous Episodes of Alcohol Withdrawal?: Unable to Obtain Have you ever Experienced Withdrawal Seizures?: Unable to Obtain Have you ever Experienced Delirium Tremens(DT)s?: Unable to Obtain Have you ever undergone Alcohol Rehabilitation Treatment (i.e, inpt ot outpatient treatment programs)?: Unable to Obtain Have you ever Experienced Blackouts?: Unable to Obtain Have you ever Combined Alcohol with other Downers within the last 90 days?: Unable to Obtain Have you ever Combined Alcohol with any other Substance of Abuse during the last 90 days?: Unable to Obtain Positive Blood Alcohol level on Presentation? [PCS.BAL]: Unable to Obtain Evidence of Increased Autonomic Activity (i.e. HR>120, tremor, sweating, agitation, nausea)?: Unable to Obtain
[2022-07-05] MEDS: Lidocaine 5% Patch 1 PATCH TP (18:07)
[2022-07-05] MEDS: Lactated Ringers 1,000 ML 150 ML IV (18:07)
[2022-07-06] VITALS (10 sets, daily range): BP systolic 109–176; BP diastolic 72–114; PULSE 80–104; RESP 14–26; TEMP 36–37.1; O2SAT 91–98
[2022-07-06] MEDS: LORazepam 1 MG TAB PO/SL ×2 (00:18→09:50)
[2022-07-06] MEDS: Lactated Ringers 1,000 ML 150 ML IV ×2 (00:23→07:40)
[2022-07-06] MEDS: Normal Saline Flush 10 ML SYR IVP ×2 (05:32→08:52)
[2022-07-06] MEDS: Lidocaine Patch Removal 1 EACH TP (05:33)
[2022-07-06 06:01] LABS: Abs Immature Grans 0.01 10^3/uL (0.0-0.06); Absolute Basophil Count 0.03 10^3/uL (0.0-0.2); Absolute Eosinophil Count 0.05 10^3/uL (0.0-0.7); Absolute Lymphocyte Count 0.79 10^3/uL (1.2-3.4); Absolute Monocyte Count 0.47 10^3/uL (0.1-0.8); Basophils % 0.5; Eosinophils % 0.9; HCT 42.4 % (40.0-50.0); HGB 14.3 g/dL (13.5-17.5); Immature Grans % 0.2; Lymphocytes % 14.2; MCH 33.6 pg (27.0-33.0); MCHC 33.7 % (32.0-36.0); MCV 100 fL (80-95); MPV 8.9 fL (8.0-11.0); Monocytes % 8.5; Neutrophils % 75.7; Platelet Count 118 10^3/uL (130-400); RBC 4.26 10^6/uL (4.36-5.78); RDW 13.4 % (11.8-14.1); RDW-SD 49.2 fL; WBC 5.55 10^3/uL (4.4-10.8)
[2022-07-06 06:35] LABS: ALT 33 U/L (16-63); AST 49 U/L (15-37); Albumin 3.2 g/dL (3.4-5.0); Alkaline Phosphatase 150 U/L (46-116); Anion Gap 9.5 mmol/L (3-11); BUN 11 mg/dL (7-18); Bilirubin, Total 1.3 mg/dL (0.2-1.0); C-Reactive Protein 1.38 mg/dL (0.0-0.3); CO2 24.5 mmol/L (21.0-32.0); CREATININE 0.7 mg/dL (0.70-1.30); Calcium 9.1 mg/dL (8.5-10.1); Chloride 102 mmol/L (98-107); Estimated GFR 104.83 (mL/min/1.73m2); Glucose 81 mg/dL (74-106); Magnesium 1.7 mg/dL (1.8-2.4); Potassium 3.3 mmol/L (3.5-5.1); Sodium 136 mmol/L (136-145); Total Protein 6.9 g/dL (6.4-8.2)
[2022-07-06 06:46] LABS: Lipase 1964 U/L (73-393)
[2022-07-06 06:51] LABS: ALT 36 U/L (16-63); AST 58 U/L (15-37); Albumin 3.2 g/dL (3.4-5.0); Alkaline Phosphatase 148 U/L (46-116); Bilirubin, Direct 0.4 mg/dL (0.0-0.2); Bilirubin, Total 1.3 mg/dL (0.2-1.0); Total Protein 6.8 g/dL (6.4-8.2)
--- NOTE | 2022-07-06 07:20 | W.PM.PROGNOT ---
Date of Service Date of service: 07/06/22 Time of Service: 07:21 Objective Last Vital Signs Temp 97.2 F L 07/06/22 03:50 Pulse 102 H 07/06/22 03:50 Resp 20 07/06/22 03:50 BP 176/104 H 07/06/22 03:50 Pulse Ox 97 07/06/22 03:50 Laboratory Results - last 24 hr 07/05/22 07/05/22 07/05/22 06:15 06:15 06:15 WBC RBC Hgb Hct MCV MCH MCHC RDW Plt Count MPV Immature Gran % Neutrophils % Lymphocytes % Monocytes % Eosinophils % Basophils % Nucleated RBC % Absolute Neutrophils Absolute Lymphocytes Absolute Monocytes Absolute Eosinophils Absolute Basophils Sodium 137 Potassium 2.9 L Chloride 103 Carbon Dioxide 25.8 Anion Gap 8.2 BUN 7 Creatinine 0.8 Est GFR (CKD-EPI 2020) 100.69 Glucose 100 Hemoglobin A1c 5.4 Calcium 8.5 Magnesium Total Bilirubin 1.4 H Conjugated Bilirubin AST 71 H ALT 36 Alkaline Phosphatase 154 H C-Reactive Protein Total Protein 7.3 Albumin 3.7 Triglycerides 50 Total Cholesterol 128 LDL Cholesterol, Calc 37 HDL Cholesterol 81 Lipase Urine Opiates Screen Urine Methadone Screen Ur Barbiturates Screen Ur Tricyclics Screen Ur Amphetamines Screen U Benzodiazepines Scrn Urine Cocaine Screen Ur THC Screen Add-On Test Request DONE 07/05/22 07/05/22 07/06/22 06:15 08:38 05:35 WBC RBC Hgb Hct MCV MCH MCHC RDW Plt Count MPV Immature Gran % Neutrophils % Lymphocytes % Monocytes % Eosinophils % Basophils % Nucleated RBC % Absolute Neutrophils Absolute Lymphocytes Absolute Monocytes Absolute Eosinophils Absolute Basophils Sodium 136 Potassium 3.3 L Chloride 102 Carbon Dioxide 24.5 Anion Gap 9.5 BUN 11 Creatinine 0.7 Est GFR (CKD-EPI 2020) 104.83 Glucose 81 Hemoglobin A1c Calcium 9.1 Magnesium 1.7 L Total Bilirubin 1.3 H Conjugated Bilirubin AST 49 H ALT 33 Alkaline Phosphatase 150 H C-Reactive Protein < 0.05 1.38 H Total Protein 6.9 Albumin 3.2 L Triglycerides Total Cholesterol LDL Cholesterol, Calc HDL Cholesterol Lipase 501 H 1964 H Urine Opiates Screen Positive A Urine Methadone Screen Positive A Ur Barbiturates Screen Negative Ur Tricyclics Screen Negative Ur Amphetamines Screen Negative U Benzodiazepines Scrn Negative Urine Cocaine Screen Negative Ur THC Screen Negative Add-On Test Request 07/06/22 07/06/22 05:35 05:35 WBC 5.55 RBC 4.26 L Hgb 14.3 Hct 42.4 MCV 100 H MCH 33.6 H MCHC 33.7 RDW 13.4 Plt Count 118 L MPV 8.9 Immature Gran % 0.2 Neutrophils % 75.7 Lymphocytes % 14.2 Monocytes % 8.5 Eosinophils % 0.9 Basophils % 0.5 Nucleated RBC % 0.0 Absolute Neutrophils 4.20 Absolute Lymphocytes 0.79 L Absolute Monocytes 0.47 Absolute Eosinophils 0.05 Absolute Basophils 0.03 Sodium Potassium Chloride Carbon Dioxide Anion Gap BUN Creatinine Est GFR (CKD-EPI 2020) Glucose Hemoglobin A1c Calcium Magnesium Total Bilirubin 1.3 H Conjugated Bilirubin 0.4 H AST 58 H ALT 36 Alkaline Phosphatase 148 H C-Reactive Protein Total Protein 6.8 Albumin 3.2 L Triglycerides Total Cholesterol LDL Cholesterol, Calc HDL Cholesterol Lipase Urine Opiates Screen Urine Methadone Screen Ur Barbiturates Screen Ur Tricyclics Screen Ur Amphetamines Screen U Benzodiazepines Scrn Urine Cocaine Screen Ur THC Screen Add-On Test Request PAWSS Have you Been Recently Intoxicated or Drunk Within the Last 30 days?: Unable to Obtain Have you Ever Experienced Previous Episodes of Alcohol Withdrawal?: Unable to Obtain Have you ever Experienced Withdrawal Seizures?: Unable to Obtain Have you ever Experienced Delirium Tremens(DT)s?: Unable to Obtain Have you ever undergone Alcohol Rehabilitation Treatment (i.e, inpt ot outpatient treatment programs)?: Unable to Obtain Have you ever Experienced Blackouts?: Unable to Obtain Have you ever Combined Alcohol with other Downers within the last 90 days?: Unable to Obtain Have you ever Combined Alcohol with any other Substance of Abuse during the last 90 days?: Unable to Obtain Positive Blood Alcohol level on Presentation? [PCS.BAL]: Unable to Obtain Evidence of Increased Autonomic Activity (i.e. HR>120, tremor, sweating, agitation, nausea)?: Unable to Obtain Result: 6
[2022-07-06] MEDS: Folic Acid 1 MG TAB PO (07:41)
[2022-07-06] MEDS: Multivitamin TAB 1 TAB PO (07:41)
[2022-07-06] MEDS: Enoxaparin 40 MG/0.4 ML SYR SC (07:41)
[2022-07-06] MEDS: Thiamine 100 MG TAB PO (07:41)
[2022-07-06] MEDS: chlordiazePOXIDE 25 MG CAP 50 MG PO (07:41)
[2022-07-06] MEDS: POTASSIUM CHLORIDE 20 MEQ/100 ML BAG 50 MEQ IVPB ×2 (08:52→10:31)
[2022-07-06] MEDS: MAGNESIUM SULFATE 2 GM/50 ML BAG IVPB (08:52)
[2022-07-06] MEDS: MULTIVITAMIN 10 ML, THIAMINE 100 MG, FOLIC ACID 1 MG in DEXTROSE 5%-0.45% SALINE 1,000 ML 150 ML IV (09:05)
[2022-07-06] MEDS: Methadone Liquid 10 MG/ML 170 MG PO (09:05)
[2022-07-06] MEDS: chlordiazePOXIDE 25 MG CAP PO ×2 (11:21→16:04)
[2022-07-06 13:57] LABS: BE (Venous) 2 mmol/L (-2-3); HCO3 (Venous) 27 mmol/L (23-28); O2 Sat (Venous) 78 %; TCO2 (Venous) 25 mmol/L (24-29); pCO2 (Venous) 48 mmHg (41-51); pH (Venous) 7.36 (7.31-7.41); pO2 (Venous) 42 mmHg
[2022-07-06 14:09] LABS: Ammonia 37 umol/L (11-32)
--- NOTE | 2022-07-06 15:48 | CMPROGNOTE_ITS ---
- If Service Date Differs Date of service: 07/06/22 Time of Service: 15:48 Care Management Progress Note S/O: Chilango continues to be closely monitored and treated for withdrawal. Once he is able to engage, CM will page asset recovery specialist to meet with Chilango regarding readiness to seek additional support upon discharge. CM continues to follow. A: 61 year old male admitted to [facility] 07/04/22 for alcohol intoxication, gallstone pancreatitis P: Anticipate Chilango will discharge when ready per MD. Comprehensive CM assessment to be completed when Chilango is through withdrawal and able to engage.
[2022-07-06] MEDS: cloNIDine 0.1 MG TAB PO ×2 (16:04→19:42)
[2022-07-06] MEDS: Dextrose 50%-Water 25 GM/50 ML SYR IVP (17:00)
[2022-07-06] MEDS: Lidocaine 5% Patch 1 PATCH TP (18:46)
[2022-07-06] MEDS: DEXTROSE 5%-LACTATED RINGERS 1,000 ML 150 ML IV (18:49)
[2022-07-06] MEDS: Lactulose 20 GM/30 ML CUP PO (19:42)
[2022-07-07] VITALS (7 sets, daily range): BP systolic 109–166; BP diastolic 70–100; PULSE 66–91; RESP 18–26; TEMP 35.6–36.6; O2SAT 86–97
[2022-07-07] MEDS: DEXTROSE 5%-LACTATED RINGERS 1,000 ML 150 ML IV ×2 (01:08→07:58)
[2022-07-07] MEDS: Lidocaine Patch Removal 1 EACH TP (05:54)
[2022-07-07 07:03] LABS: Abs Immature Grans 0.02 10^3/uL (0.0-0.06); Absolute Basophil Count 0.02 10^3/uL (0.0-0.2); Absolute Eosinophil Count 0.05 10^3/uL (0.0-0.7); Absolute Lymphocyte Count 0.74 10^3/uL (1.2-3.4); Absolute Monocyte Count 0.39 10^3/uL (0.1-0.8); Basophils % 0.5; Eosinophils % 1.2; HCT 36.9 % (40.0-50.0); HGB 12.4 g/dL (13.5-17.5); Immature Grans % 0.5; Lymphocytes % 18.4; MCH 33.2 pg (27.0-33.0); MCHC 33.6 % (32.0-36.0); MCV 99 fL (80-95); MPV 9.6 fL (8.0-11.0); Monocytes % 9.7; Neutrophils % 69.7; Platelet Count 99 10^3/uL (130-400); RBC 3.73 10^6/uL (4.36-5.78); RDW-SD 47.8 fL; WBC 4.02 10^3/uL (4.4-10.8)
[2022-07-07 07:33] LABS: ALT 22 U/L (16-63); AST 39 U/L (15-37); Albumin 2.5 g/dL (3.4-5.0); Alkaline Phosphatase 128 U/L (46-116); BUN 10 mg/dL (7-18); Bilirubin, Direct 0.4 mg/dL (0.0-0.2); CREATININE 0.7 mg/dL (0.70-1.30); Calcium 8.1 mg/dL (8.5-10.1); Chloride 103 mmol/L (98-107); Estimated GFR 104.83 (mL/min/1.73m2); Glucose 88 mg/dL (74-106); Magnesium 1.7 mg/dL (1.8-2.4); Sodium 136 mmol/L (136-145); Total Protein 5.6 g/dL (6.4-8.2)
[2022-07-07 08:13] LABS: Folate 10.1 ng/mL (8.6-20.0); Vitamin B12 726 pg/mL (193-986)
[2022-07-07] MEDS: Folic Acid 1 MG TAB PO (08:20)
[2022-07-07] MEDS: Thiamine 100 MG TAB PO (08:20)
[2022-07-07] MEDS: cloNIDine 0.1 MG TAB PO ×3 (08:20→19:57)
[2022-07-07] MEDS: Multivitamin TAB 1 TAB PO (08:20)
[2022-07-07] MEDS: Lactulose 20 GM/30 ML CUP PO (08:20)
[2022-07-07] MEDS: MULTIVITAMIN 10 ML, THIAMINE 100 MG, FOLIC ACID 1 MG in DEXTROSE 5%-0.45% SALINE 1,000 ML 150 ML IV ×2 (08:50→23:27)
--- NOTE | 2022-07-07 08:51 | W.PM.PROGNOT ---
Date of Service Date of service: 07/06/22 Time of Service: 12:00 Assessment and Plan Assessment and plan (1) Alcohol dependence with withdrawal: Status: Acute Assessment and plan: Monitor on CIWA - scoring 4's Hold scheduled librium s/t somnolence; continue prn ativan. (2) Alcoholic pancreatitis: Status: Acute Assessment and plan: Surgical consult - Ultrasound does show gallstones.? But no dilated ducts.? We will watch his bilirubin closely which is climbed today. There is no sign of acute cholecystitis. Patient is not currently stable for surgery because of his acute withdrawal Continue IVF. Trial clear liquids -does drink water when taking pills without difficulty - mostly asleep, not taking in much PO liquid. (3) Dilated bile duct: Status: Acute Assessment and plan: As above (4) Alcohol intoxication: Status: Acute Assessment and plan: As above (5) Essential hypertension: Assessment and plan: Monitor BP in setting of ETOH w/d (6) Type II diabetes mellitus: Assessment and plan: SSI Glucose in the 80's - did have one dip to low 60's and received 1/2 amp D50 (12.5 gm) with glucose responding back to 80's (7) Narcotic withdrawal: Status: Acute Assessment and plan: Hold methadone s/t somnolence (8) Hypokalemia: Status: Acute Assessment and plan: 3.0 Replete; recheck in am (9) DVT prophylaxis: Status: Acute Assessment and plan: SC enoxaparin (10) Discharge planning issues: Status: Acute Assessment and plan: Full code Subjective Subjective Patient reports: no new complaints and afebrile; denies tolerating liquids well, diarrhea, nausea or vomiting Interval history since last seen: Continues to be somnolent and awakes briefly to lewis touch. He is semi fowlers in bed and maintaining his airway. He has not been drinking fluids. Exam Narrative Exam Narrative: Middle-aged male semifowlers in bed, in no acute distress. He is somnolent, alert to lewis touch. HEENT is remarkable for edentulous oropharynx no exudates mucous membranes are moist, drooling Neck is supple no JVD normal carotid pulses supple nontender Lungs are clear no rhonchi no rales Heart is regular without murmur rub or gallop Abdomen slight distention with normal bowel sounds soft no tenderness. Lower extremities with venous varicosities he has some abrasions over his right patella and his left [place]our[place]. No purulent drainage. No calf tenderness or swelling Neuro exam grossly intact no tremors no facial asymmetry Objective Last Vital Signs Temp 36.5 C 07/07/22 08:00 Pulse 91 H 07/07/22 08:00 Resp 24 07/07/22 08:00 BP 166/100 H 07/07/22 08:00 Pulse Ox 96 07/07/22 08:00 Laboratory Results - last 24 hr 07/06/22 07/06/22 07/07/22 13:50 13:50 05:55 WBC RBC Hgb Hct MCV MCH MCHC RDW Plt Count MPV Immature Gran % Neutrophils % Lymphocytes % Monocytes % Eosinophils % Basophils % Nucleated RBC % Absolute Neutrophils Absolute Lymphocytes Absolute Monocytes Absolute Eosinophils Absolute Basophils VBG pH 7.36 VBG pCO2 48 VBG pO2 42 VBG HCO3 27 VBG Total CO2 25 VBG O2 Saturation 78 VBG Base Excess 2 Sodium 136 Potassium 3.0 L Chloride 103 Carbon Dioxide 28.0 Anion Gap 5.0 BUN 10 Creatinine 0.7 Est GFR (CKD-EPI 2020) 104.83 Glucose 88 Calcium 8.1 L Magnesium 1.7 L Total Bilirubin 1.0 Conjugated Bilirubin 0.4 H AST 39 H ALT 22 Alkaline Phosphatase 128 H Ammonia 37 H Total Protein 5.6 L Albumin 2.5 L Vitamin B12 726 Folate 10.1 07/07/22 05:55 WBC 4.02 L RBC 3.73 L Hgb 12.4 L Hct 36.9 L MCV 99 H MCH 33.2 H MCHC 33.6 RDW 13.0 Plt Count 99 L MPV 9.6 Immature Gran % 0.5 Neutrophils % 69.7 Lymphocytes % 18.4 Monocytes % 9.7 Eosinophils % 1.2 Basophils % 0.5 Nucleated RBC % 0.0 Absolute Neutrophils 2.80 Absolute Lymphocytes 0.74 L Absolute Monocytes 0.39 Absolute Eosinophils 0.05 Absolute Basophils 0.02 VBG pH VBG pCO2 VBG pO2 VBG HCO3 VBG Total CO2 VBG O2 Saturation VBG Base Excess Sodium Potassium Chloride Carbon Dioxide Anion Gap BUN Creatinine Est GFR (CKD-EPI 2020) Glucose Calcium Magnesium Total Bilirubin Conjugated Bilirubin AST ALT Alkaline Phosphatase Ammonia Total Protein Albumin Vitamin B12 Folate PAWSS Have you Been Recently Intoxicated or Drunk Within the Last 30 days?: Unable to Obtain Have you Ever Experienced Previous Episodes of Alcohol Withdrawal?: Unable to Obtain Have you ever Experienced Withdrawal Seizures?: Unable to Obtain Have you ever Experienced Delirium Tremens(DT)s?: Unable to Obtain Have you ever undergone Alcohol Rehabilitation Treatment (i.e, inpt ot outpatient treatment programs)?: Unable to Obtain Have you ever Experienced Blackouts?: Unable to Obtain Have you ever Combined Alcohol with other Downers within the last 90 days?: Unable to Obtain Have you ever Combined Alcohol with any other Substance of Abuse during the last 90 days?: Unable to Obtain Positive Blood Alcohol level on Presentation? [PCS.BAL]: Unable to Obtain Evidence of Increased Autonomic Activity (i.e. HR>120, tremor, sweating, agitation, nausea)?: Unable to Obtain Result: 6
--- NOTE | 2022-07-07 09:04 | PGE_ITS ---
Date of Service Date of service: 07/07/22 Time of Service: 09:04 Assessment and Plan Assessment and plan (1) Alcohol dependence with withdrawal: Status: Acute Assessment and plan: Monitor on CIWA - scoring 3's Hold scheduled librium s/t somnolence; continue prn ativan. (2) Alcoholic pancreatitis: Status: Acute Assessment and plan: Surgical consult - Ultrasound does show gallstones.? But no dilated ducts.? We will watch his bilirubin closely which is climbed today. There is no sign of acute cholecystitis. Patient is not currently stable for surgery because of his acute withdrawal - seen by surgery again today and they are holding as there is no urgent need Continue IVF. LR 150ml/h Trial clear liquids -does drink water when taking pills without difficulty - mostly asleep, not taking in much PO liquid. (3) Urinary retention: Status: Acute Assessment and plan: Somnolent and not waking to void. Nursing did get him up and he voided 675 ml (4) Dilated bile duct: Status: Acute Assessment and plan: As above (5) Alcohol intoxication: Status: Acute Assessment and plan: As above (6) Essential hypertension: Assessment and plan: Monitor BP in setting of ETOH w/d (7) Type II diabetes mellitus: Assessment and plan: SSI Glucose in the 116 (8) Narcotic withdrawal: Status: Acute Assessment and plan: Hold methadone s/t somnolence (9) Hypomagnesemia: Status: Acute Assessment and plan: 1.7 replete, recheck tomorrow (10) Hypokalemia: Status: Acute Assessment and plan: 3.0 Replete; recheck in am (11) DVT prophylaxis: Status: Acute Assessment and plan: SC enoxaparin (12) Discharge planning issues: Status: Acute Assessment and plan: Full code Subjective Subjective Patient reports: bowel movement and afebrile; denies nausea or vomiting Interval history since last seen: Chilango continues to be somnolent. He was woken up by nursing to void. He did void and then went back to sleep. He has had little oral intake. Exam Const General: cooperative, not healthy appearing, no acute distress, disheveled and lethargic Orientation: awake, not oriented to person, not oriented to place, not oriented to time and confused Limitations: altered mental status HENUT Head: normocephalic Ears: other (He seems to be a little hard of hearing) Eyes Alignment and Position: alignment normal Conjunctivae: conjunctivae normal Sclera: sclerae normal Neck Neck: normal visual inspection, full ROM and no lymphadenopathy Resp Effort & Inspection: decreased respiratory effort and no use of accessory m uscles Auscultation: bronchial breath sounds Cardio Rhythm: regular rhythm Heart Sounds: S1 normal and S2 normal GI Inspection: normal to inspection and non-distended Palpation: soft, no hernias and tender Auscultation: normal bowel sounds Skin General skin exam: no jaundice Extrem Right lower extremity: no edema Left lower extremity: no edema Objective Last Vital Signs Temp 36.5 C 07/07/22 08:00 Pulse 91 H 07/07/22 08:00 Resp 24 07/07/22 08:00 BP 166/100 H 07/07/22 08:00 Pulse Ox 96 07/07/22 08:00 Laboratory Results - last 24 hr 07/06/22 07/06/22 07/07/22 13:50 13:50 05:55 WBC RBC Hgb Hct MCV MCH MCHC RDW Plt Count MPV Immature Gran % Neutrophils % Lymphocytes % Monocytes % Eosinophils % Basophils % Nucleated RBC % Absolute Neutrophils Absolute Lymphocytes Absolute Monocytes Absolute Eosinophils Absolute Basophils VBG pH 7.36 VBG pCO2 48 VBG pO2 42 VBG HCO3 27 VBG Total CO2 25 VBG O2 Saturation 78 VBG Base Excess 2 Sodium 136 Potassium 3.0 L Chloride 103 Carbon Dioxide 28.0 Anion Gap 5.0 BUN 10 Creatinine 0.7 Est GFR (CKD-EPI 2020) 104.83 Glucose 88 Calcium 8.1 L Magnesium 1.7 L Total Bilirubin 1.0 Conjugated Bilirubin 0.4 H AST 39 H ALT 22 Alkaline Phosphatase 128 H Ammonia 37 H Total Protein 5.6 L Albumin 2.5 L Vitamin B12 726 Folate 10.1 07/07/22 05:55 WBC 4.02 L RBC 3.73 L Hgb 12.4 L Hct 36.9 L MCV 99 H MCH 33.2 H MCHC 33.6 RDW 13.0 Plt Count 99 L MPV 9.6 Immature Gran % 0.5 Neutrophils % 69.7 Lymphocytes % 18.4 Monocytes % 9.7 Eosinophils % 1.2 Basophils % 0.5 Nucleated RBC % 0.0 Absolute Neutrophils 2.80 Absolute Lymphocytes 0.74 L Absolute Monocytes 0.39 Absolute Eosinophils 0.05 Absolute Basophils 0.02 VBG pH VBG pCO2 VBG pO2 VBG HCO3 VBG Total CO2 VBG O2 Saturation VBG Base Excess Sodium Potassium Chloride Carbon Dioxide Anion Gap BUN Creatinine Est GFR (CKD-EPI 2020) Glucose Calcium Magnesium Total Bilirubin Conjugated Bilirubin AST ALT Alkaline Phosphatase Ammonia Total Protein Albumin Vitamin B12 Folate PAWSS Have you Been Recently Intoxicated or Drunk Within the Last 30 days?: Unable to Obtain Have you Ever Experienced Previous Episodes of Alcohol Withdrawal?: Unable to Obtain Have you ever Experienced Withdrawal Seizures?: Unable to Obtain Have you ever Experienced Delirium Tremens(DT)s?: Unable to Obtain Have you ever undergone Alcohol Rehabilitation Treatment (i.e, inpt ot outpatient treatment programs)?: Unable to Obtain Have you ever Experienced Blackouts?: Unable to Obtain Have you ever Combined Alcohol with other Downers within the last 90 days?: Unable to Obtain Have you ever Combined Alcohol with any other Substance of Abuse during the last 90 days?: Unable to Obtain Positive Blood Alcohol level on Presentation? [PCS.BAL]: Unable to Obtain Evidence of Increased Autonomic Activity (i.e. HR>120, tremor, sweating, agitation, nausea)?: Unable to Obtain
--- NOTE | 2022-07-07 09:46 | SCONE_ITS ---
Date of service: 07/07/22 Time of Service: 07:30 Assessment and Plan Assessment and plan (1) Alcoholic pancreatitis: Status: Acute Assessment and plan: He certainly has pancreatitis based on his history, exam, and biochemistry. We will is alcoholic pancreatitis, or gallstone pancreatitis is a little more difficult to say. In the big picture, he will probably benefit from cholecystectomy, but I would not pursue that until his mental status improves, and he is pain-free from a pancreatitis standpoint. Given his recent history, I think the most important thing right now is to make sure that he recovers from his alcohol abuse in a safe fashion. Certainly his vital signs are reassuring, and although I think his mental status is probably impacted by his alcohol abuse, he does not seem to have acute delirium tremens at this point. We can follow along as he recovers, and discussed the role of cholecystectomy in more detail once his mental status improves. History of Present Illness History of Present Illness Chief Complaint: Abdominal pain with pancreatitis Narrative: Chilango is a 61-year-old male with past medical history that is most significant for severe alcoholism. He came to the emergency department 3 days ago complaining of abdominal pain. At that time, his labs demonstrated some mild elevation in his serum bilirubin level, as well as lipase. Imaging was consistent with cholelithiasis, pancreatitis, and potential choledocholithiasis. He was admitted to the hospital, and a [facility] protocol was initiated for alcohol withdrawal. He also underwent MRCP which ruled out choledocholithiasis. Mass to see him in consideration for cholecystectomy since gallstones could play a role in his pancreatitis. This morning, he is complaining of abdominal pain. He is not oriented to person or time. He seems to understand this is a hospital. He tells me he has abdominal pain. He says it is better than yesterday. He does not have much appetite. He is not able to answer any other questions regarding his medical history. Review of Systems Narrative: The review of systems is difficult to obtain because of his confusion. Constitutional Constitutional: Reports body ache(s), Reports fatigue, Denies fever(s), Reports lethargy and Reports poor appetite Eyes Eyes: Denies change in vision ENT Ears, Nose, Mouth, and Throat: Reports other (Unable to obtain) Cardiovascular Cardiovascular: Denies chest pain and Reports dyspnea Respiratory Respiratory: Denies chest congestion, Reports cough and Reports dyspnea Gastrointestinal Gastrointestinal: Reports abdominal pain, Denies belching, Denies bloating, Denies constipation, Reports nausea and Denies vomiting Genitourinary Genitourinary: Denies dysuria Musculoskeletal Musculoskeletal: Reports myalgias, Reports muscle cramps and Reports muscle weakness Neurologic Neurologic: Reports abnormal speech, Reports behavioral changes and Reports confusion Psychiatric Psychiatric: Reports behavioral changes and Reports confusion Endocrine Endocrine: Reports fatigue Hematologic/Lymphatic Hematologic/Lymphatic: Denies easy bleeding and Denies easy bruising PFSH All Active Problems (Updated 07/05/22 @ 18:08 by Margarita Galvan MD) Dilated bile duct (Acute) Discharge planning issues (Acute) DVT prophylaxis (Acute) Hypokalemia (Acute) Alcoholic pancreatitis (Acute) Alcohol dependence with withdrawal (Acute) Narcotic withdrawal (Acute) Acute gallstone pancreatitis (Acute) Alcohol intoxication (Acute) No-show for appointment (Acute) Arthritis of right glenohumeral joint (Acute) Fracture of right clavicle (Acute) distal clavicle 12/12/21 Nausea (Acute) Varicose veins of both lower extremities (Acute) Hyperglycemia (Acute) Low back pain (Acute) Prostatitis (Acute) Inflammatory disease of liver (Chronic) Atrophic gastritis (Acute) Heart block (Acute) Claustrophobia (Acute) Vitamin D deficiency (Acute) Disorder of endocrine system (Acute) Medical History ADHD Alcoholism Anemia of chronic disease Depressive disorder Essential hypertension GERD (gastroesophageal reflux disease) Gout Tobacco use disorder Type II diabetes mellitus Surgical History History of foot surgery History of tonsillectomy Social History Smoking/Tobacco Use Status: Current every day Quit status: considering quitting Counseling given: support medications Smoking risk assessment performed?: Yes Alcohol Intake: current Alcohol Intake frequency: 3 or more drinks per day Drug use: Current Sobriety Substance use type: does not use Details: H/O substance abuse - heroin Adopted: No Housing: other Details: mainor Communication Needs: None current occupation: disabled Pets and animals: No Current gender identity: male What is your relationship status?: don't know How often do you talk on the phone with friends or family?: three or more times per week How often do you get together with friends or relatives?: three or more times per week Panel score (0-1 are the most socially isolated patients): 1 What type of physical activity do you participate in: none Seatbelt use: sometimes Fire extinguisher in home: No Carbon monox detector in home: No Firearms in home: No Do you feel safe at home: Yes Exam Const General: cooperative, not healthy appearing, no acute distress, disheveled and lethargic Orientation: awake, not oriented to person, not oriented to place, not oriented to time and confused Limitations: altered mental status HENMO Head: normocephalic Ears: other (He seems to be a little hard of hearing) Eyes Alignment and Position: alignment normal Conjunctivae: conjunctivae normal Sclera: sclerae normal Neck Neck: normal visual inspection, full ROM and no lymphadenopathy Resp Effort & Inspection: decreased respiratory effort and no use of accessory muscles Auscultation: bronchial breath sounds Cardio Rhythm: regular rhythm Heart Sounds: S1 normal and S2 normal GI Inspection: normal to inspection and non-distended Palpation: soft, no hernias and tender Auscultation: normal bowel sounds Skin General skin exam: no jaundice Extrem Right lower extremity: no edema Left lower extremity: no edema Results Last Vital Signs Temp 97.7 F 07/07/22 08:00 Pulse 91 H 07/07/22 08:00 Resp 24 07/07/22 08:00 BP 166/100 H 07/07/22 08:00 Pulse Ox 96 07/07/22 08:00 Labs Result diagrams: 07/07/22 05:55 07/07/22 05:55 Labs: Laboratory Results - last 24 hr 07/06/22 07/06/22 07/07/22 13:50 13:50 05:55 WBC RBC Hgb Hct MCV MCH MCHC RDW Plt Count MPV Immature Gran % Neutrophils % Lymphocytes % Monocytes % Eosinophils % Basophils % Nucleated RBC % Absolute Neutrophils Absolute Lymphocytes Absolute Monocytes Absolute Eosinophils Absolute Basophils VBG pH 7.36 VBG pCO2 48 VBG pO2 42 VBG HCO3 27 VBG Total CO2 25 VBG O2 Saturation 78 VBG Base Excess 2 Sodium 136 Potassium 3.0 L Chloride 103 Carbon Dioxide 28.0 Anion Gap 5.0 BUN 10 Creatinine 0.7 Est GFR (CKD-EPI 2020) 104.83 Glucose 88 Calcium 8.1 L Magnesium 1.7 L Total Bilirubin 1.0 Conjugated Bilirubin 0.4 H AST 39 H ALT 22 Alkaline Phosphatase 128 H Ammonia 37 H Total Protein 5.6 L Albumin 2.5 L Vitamin B12 726 Folate 10.1 07/07/22 05:55 WBC 4.02 L RBC 3.73 L Hgb 12.4 L Hct 36.9 L MCV 99 H MCH 33.2 H MCHC 33.6 RDW 13.0 Plt Count 99 L MPV 9.6 Immature Gran % 0.5 Neutrophils % 69.7 Lymphocytes % 18.4 Monocytes % 9.7 Eosinophils % 1.2 Basophils % 0.5 Nucleated RBC % 0.0 Absolute Neutrophils 2.80 Absolute Lymphocytes 0.74 L Absolute Monocytes 0.39 Absolute Eosinophils 0.05 Absolute Basophils 0.02 VBG pH VBG pCO2 VBG pO2 VBG HCO3 VBG Total CO2 VBG O2 Saturation VBG Base Excess Sodium Potassium Chloride Carbon Dioxide Anion Gap BUN Creatinine Est GFR (CKD-EPI 2020) Glucose Calcium Magnesium Total Bilirubin Conjugated Bilirubin AST ALT Alkaline Phosphatase Ammonia Total Protein Albumin Vitamin B12 Folate
[2022-07-07] MEDS: MAGNESIUM SULFATE 1 GM/100 ML BAG IVPB (10:08)
[2022-07-07] MEDS: Normal Saline 500 ML 30 ML IV (10:08)
[2022-07-07] MEDS: POTASSIUM CHLORIDE 20 MEQ/100 ML BAG 50 MEQ IVPB ×2 (10:08→12:26)
[2022-07-07] MEDS: Methadone Liquid 10 MG/ML 170 MG PO (10:43)
--- NOTE | 2022-07-07 10:50 | NUR.NOTE ---
Nursing Note: methadone had been on hold per provider. When dose scanned for today, came up as scanning against a future dose. Pharmacy was contacted, they suggested to administer unscheduled.
[2022-07-07] MEDS: Lidocaine 5% Patch 1 PATCH TP (18:41)
[2022-07-07] MEDS: Lactulose 20 GM/30 ML CUP 30 GM PO (19:57)
[2022-07-08 03:51] VITALS: BP 124/73; PULSE 72; RESP 18; TEMP 36.2; O2SAT 97
[2022-07-08] MEDS: Lidocaine Patch Removal 1 EACH TP (05:32)
[2022-07-08 06:04] LABS: Abs Immature Grans 0.01 10^3/uL (0.0-0.06); Absolute Basophil Count 0.02 10^3/uL (0.0-0.2); Absolute Eosinophil Count 0.07 10^3/uL (0.0-0.7); Absolute Lymphocyte Count 0.74 10^3/uL (1.2-3.4); Absolute Neutrophil Count 2.42 10^3/uL (1.2-6.7); Basophils % 0.6; HCT 34.1 % (40.0-50.0); HGB 11.3 g/dL (13.5-17.5); Immature Grans % 0.3; Lymphocytes % 20.8; MCH 32.8 pg (27.0-33.0); MCHC 33.1 % (32.0-36.0); MCV 99 fL (80-95); MPV 9.7 fL (8.0-11.0); Monocytes % 8.4; Neutrophils % 67.9; Platelet Count 89 10^3/uL (130-400); RBC 3.44 10^6/uL (4.36-5.78); RDW 13.1 % (11.8-14.1); RDW-SD 47.9 fL; WBC 3.56 10^3/uL (4.4-10.8)
[2022-07-08 06:06] LABS: Ammonia 33 umol/L (11-32)
[2022-07-08 06:29] LABS: ALT 20 U/L (16-63); AST 37 U/L (15-37); Albumin 2.4 g/dL (3.4-5.0); Alkaline Phosphatase 118 U/L (46-116); Anion Gap 7.1 mmol/L (3-11); BUN 8 mg/dL (7-18); Bilirubin, Direct 0.2 mg/dL (0.0-0.2); Bilirubin, Total 0.6 mg/dL (0.2-1.0); CO2 24.9 mmol/L (21.0-32.0); CREATININE 0.5 mg/dL (0.70-1.30); Chloride 103 mmol/L (98-107); Estimated GFR 116.04 (mL/min/1.73m2); Glucose 116 mg/dL (74-106); Lipase 723 U/L (73-393); Magnesium 1.7 mg/dL (1.8-2.4); Potassium 3.2 mmol/L (3.5-5.1); Sodium 135 mmol/L (136-145); Total Protein 5.4 g/dL (6.4-8.2)
[2022-07-08] MEDS: DEXTROSE 5%-LACTATED RINGERS 1,000 ML 150 ML IV ×3 (06:32→22:44)
[2022-07-08 07:52] VITALS: BP 149/82; PULSE 92; RESP 24; TEMP 36.1; O2SAT 95
[2022-07-08] MEDS: Folic Acid 1 MG TAB PO (08:04)
[2022-07-08] MEDS: Thiamine 100 MG TAB PO (08:04)
[2022-07-08] MEDS: Multivitamin TAB 1 TAB PO (08:04)
[2022-07-08] MEDS: cloNIDine 0.1 MG TAB PO ×3 (08:04→20:08)
[2022-07-08] MEDS: Lactulose 20 GM/30 ML CUP 30 GM PO ×2 (08:04→20:09)
--- NOTE | 2022-07-08 08:13 | W.PM.PROGNOT ---
Date of Service Date of service: 07/08/22 Time of Service: 08:14 Assessment and Plan Assessment and plan (1) Acute gallstone pancreatitis: Status: Acute Assessment and plan: We will stand by until his mental status allows for more thoughtful conversation about the role of cholecystectomy in his case. As mentioned before, it would be the recommended treatment if his pancreatitis is really thought to be from gall stones. Obviously, his alcoholism makes this case a bit more challenging. Subjective Subjective Interval history since last seen: He doesn't offer any complaints. When I ask about abdominal symptoms, he says its sarah hard to answer that right now. He denies pain. And he denies nausea. Exam GI Inspection: normal to inspection Palpation: soft, no guarding and nontender Percussion: normal to percussion Auscultation: normal bowel sounds Objective Last Vital Signs Temp 97.0 F L 07/08/22 07:52 Pulse 92 H 07/08/22 07:52 Resp 24 07/08/22 07:52 BP 149/82 H 07/08/22 07:52 Pulse Ox 95 07/08/22 07:52 Laboratory Results - last 24 hr 07/07/22 07/08/22 07/08/22 05:55 05:40 05:40 WBC 3.56 L RBC 3.44 L Hgb 11.3 L Hct 34.1 L MCV 99 H MCH 32.8 MCHC 33.1 RDW 13.1 Plt Count 89 L MPV 9.7 Immature Gran % 0.3 Neutrophils % 67.9 Lymphocytes % 20.8 Monocytes % 8.4 Eosinophils % 2.0 Basophils % 0.6 Nucleated RBC % 0.0 Absolute Neutrophils 2.42 Absolute Lymphocytes 0.74 L Absolute Monocytes 0.30 Absolute Eosinophils 0.07 Absolute Basophils 0.02 Sodium 135 L Potassium 3.2 L Chloride 103 Carbon Dioxide 24.9 Anion Gap 7.1 BUN 8 Creatinine 0.5 L Est GFR (CKD-EPI 2020) 116.04 Glucose 116 H Calcium 8.0 L Magnesium 1.7 L Total Bilirubin 0.6 Conjugated Bilirubin 0.2 AST 37 ALT 20 Alkaline Phosphatase 118 H Ammonia Total Protein 5.4 L Albumin 2.4 L Lipase 723 H Vitamin B12 726 Folate 10.1 07/08/22 05:40 WBC RBC Hgb Hct MCV MCH MCHC RDW Plt Count MPV Immature Gran % Neutrophils % Lymphocytes % Monocytes % Eosinophils % Basophils % Nucleated RBC % Absolute Neutrophils Absolute Lymphocytes Absolute Monocytes Absolute Eosinophils Absolute Basophils Sodium Potassium Chloride Carbon Dioxide Anion Gap BUN Creatinine Est GFR (CKD-EPI 2020) Glucose Calcium Magnesium Total Bilirubin Conjugated Bilirubin AST ALT Alkaline Phosphatase Ammonia 33 H Total Protein Albumin Lipase Vitamin B12 Folate PAWSS Have you Been Recently Intoxicated or Drunk Within the Last 30 days?: Unable to Obtain Have you Ever Experienced Previous Episodes of Alcohol Withdrawal?: Unable to Obtain Have you ever Experienced Withdrawal Seizures?: Unable to Obtain Have you ever Experienced Delirium Tremens(DT)s?: Unable to Obtain Have you ever undergone Alcohol Rehabilitation Treatment (i.e, inpt ot outpatient treatment programs)?: Unable to Obtain Have you ever Experienced Blackouts?: Unable to Obtain Have you ever Combined Alcohol with other Downers within the last 90 days?: Unable to Obtain Have you ever Combined Alcohol with any other Substance of Abuse during the last 90 days?: Unable to Obtain Positive Blood Alcohol level on Presentation? [PCS.BAL]: Unable to Obtain Evidence of Increased Autonomic Activity (i.e. HR>120, tremor, sweating, agitation, nausea)?: Unable to Obtain Result: 6
[2022-07-08 08:18] VITALS: RESP 18; O2SAT 95
[2022-07-08] MEDS: Normal Saline 500 ML 30 ML IV (08:59)
[2022-07-08] MEDS: MAGNESIUM SULFATE 2 GM/50 ML BAG IVPB (08:59)
[2022-07-08] MEDS: POTASSIUM CHLORIDE 20 MEQ/100 ML BAG 50 MEQ IVPB ×2 (08:59→12:06)
[2022-07-08] MEDS: Normal Saline Flush 10 ML SYR IVP ×2 (10:40→22:12)
[2022-07-08 11:33] VITALS: BP 110/71; PULSE 77; RESP 24; TEMP 36.2; O2SAT 96
[2022-07-08] MEDS: THIAMINE 500 MG in Normal Saline 100 ML 200 MG IVPB ×2 (14:20→21:38)
--- NOTE | 2022-07-08 16:04 | W.PM.PROGNOT ---
Date of Service Date of service: 07/08/22 Time of Service: 16:05 Assessment and Plan Assessment and plan (1) Alcohol dependence with withdrawal: Status: Acute Assessment and plan: Monitor on CIWA - scoring 3's Continue to hold scheduled librium s/t somnolence; continue prn ativan, although he has not needed any. (2) Alcoholic pancreatitis: Status: Acute Assessment and plan: Surgical consult - Ultrasound does show gallstones.? But no dilated ducts.? We will watch his bilirubin closely which is climbed today. There is no sign of acute cholecystitis. Patient is not currently stable for surgery because of his acute withdrawal - seen by surgery again today and they are holding as there is no urgent need Continue IVF. D5LR 150ml/h does drink water when taking pills without difficulty - mostly asleep, not taking in much PO liquid. (3) Urinary retention: Status: Acute Assessment and plan: Somnolent and not waking to void. Nursing did get him up and he voided (4) Dilated bile duct: Status: Acute Assessment and plan: As above (5) Alcohol intoxication: Status: Acute Assessment and plan: As above (6) Essential hypertension: Assessment and plan: Monitor BP in setting of ETOH w/d (7) Type II diabetes mellitus: Assessment and plan: SSI Glucose in the 116 (8) Narcotic withdrawal: Status: Acute Assessment and plan: Hold methadone s/t somnolence (9) Hypomagnesemia: Status: Acute Assessment and plan: 1.7 replete, recheck tomorrow (10) Hypokalemia: Status: Acute Assessment and plan: 3.2 Replete; recheck in am (11) DVT prophylaxis: Status: Acute Assessment and plan: SC enoxaparin (12) Discharge planning issues: Status: Acute Assessment and plan: Full code Subjective Subjective Patient reports: no new complaints, tolerating liquids well, voiding w/o difficulty and afebrile; denies diarrhea, nausea or vomiting Interval history since last seen: Chilango continues to be somnolent, librium and methadone were held today - no lorazepam needed for CIWA scoring around 3 Exam Const General: cooperative, not healthy appearing, no acute distress, disheveled and lethargic Orientation: awake, not oriented to person, not oriented to place, not oriented to time and confused Limitations: altered mental status HENNM Head: normocephalic Ears: other (He seems to be a little hard of hearing) Eyes Alignment and Position: alignment normal Conjunctivae: conjunctivae normal Sclera: sclerae normal Neck Neck: normal visual inspection, full ROM and no lymphadenopathy Resp Effort & Inspection: decreased respiratory effort and no use of accessory muscles Auscultation: bronchial breath sounds Cardio Rhythm: regular rhythm Heart Sounds: S1 normal and S2 normal GI Inspection: normal to inspection and non-distended Palpation: soft, no hernias and tender Auscultation: normal bowel sounds Skin General skin exam: no jaundice Extrem Right lower extremity: no edema Left lower extremity: no edema Objective Last Vital Signs Temp 36.2 C L 07/08/22 11:33 Pulse 77 07/08/22 11:33 Resp 24 07/08/22 11:33 BP 110/71 07/08/22 11:33 Pulse Ox 96 07/08/22 11:33 Laboratory Results - last 24 hr 07/08/22 07/08/22 07/08/22 05:40 05:40 05:40 WBC 3.56 L RBC 3.44 L Hgb 11.3 L Hct 34.1 L MCV 99 H MCH 32.8 MCHC 33.1 RDW 13.1 Plt Count 89 L MPV 9.7 Immature Gran % 0.3 Neutrophils % 67.9 Lymphocytes % 20.8 Monocytes % 8.4 Eosinophils % 2.0 Basophils % 0.6 Nucleated RBC % 0.0 Absolute Neutrophils 2.42 Absolute Lymphocytes 0.74 L Absolute Monocytes 0.30 Absolute Eosinophils 0.07 Absolute Basophils 0.02 Sodium 135 L Potassium 3.2 L Chloride 103 Carbon Dioxide 24.9 Anion Gap 7.1 BUN 8 Creatinine 0.5 L Est GFR (CKD-EPI 2020) 116.04 Glucose 116 H Calcium 8.0 L Magnesium 1.7 L Total Bilirubin 0.6 Conjugated Bilirubin 0.2 AST 37 ALT 20 Alkaline Phosphatase 118 H Ammonia 33 H Total Protein 5.4 L Albumin 2.4 L Lipase 723 H PAWSS Have you Been Recently Intoxicated or Drunk Within the Last 30 days?: Unable to Obtain Have you Ever Experienced Previous Episodes of Alcohol Withdrawal?: Unable to Obtain Have you ever Experienced Withdrawal Seizures?: Unable to Obtain Have you ever Experienced Delirium Tremens(DT)s?: Unable to Obtain Have you ever undergone Alcohol Rehabilitation Treatment (i.e, inpt ot outpatient treatment programs)?: Unable to Obtain Have you ever Experienced Blackouts?: Unable to Obtain Have you ever Combined Alcohol with other Downers within the last 90 days?: Unable to Obtain Have you ever Combined Alcohol with any other Substance of Abuse during the last 90 days?: Unable to Obtain Positive Blood Alcohol level on Presentation? [PCS.BAL]: Unable to Obtain Evidence of Increased Autonomic Activity (i.e. HR>120, tremor, sweating, agitation, nausea)?: Unable to Obtain
[2022-07-08 16:07] VITALS: BP 118/75; PULSE 73; RESP 18; TEMP 35.9; O2SAT 99
[2022-07-08] MEDS: Lidocaine 5% Patch 1 PATCH TP (18:13)
--- NOTE | 2022-07-08 19:26 | NUR.NOTE ---
Nursing Note: Expressed concern that patient received 170 mg of Methadone yesterday, which was extremely sedating to the patient. But all was put on hold today. Concern expressed to the OFFICE SERVICES SPECIALIST that without any Methadone being administered today, the risk of withdraw for the patient was going to be higher. She stated that both pharmacy and MD said that a partial or decreased dose could not be administered
[2022-07-08 20:10] VITALS: BP 131/77; PULSE 68; RESP 18; TEMP 36.2; O2SAT 100
[2022-07-09] VITALS (7 sets, daily range): BP systolic 110–144; BP diastolic 68–84; PULSE 68–76; RESP 16–19; TEMP 36.2–37.2; O2SAT 95–100
--- NOTE | 2022-07-09 | DI.CT_ITS ---
Exam(s) CT HEAD WO EXAM: CT HEAD WO CLINICAL HISTORY: Altered mental status. TECHNIQUE: Imaging Protocol: Axial computed tomography images with coronal and sagittal reformatted images were created and reviewed COMPARISON: CT CT HEAD CERVICAL SPINE WO from 08/29/2021 FINDINGS: Ventricles and Extra axial spaces: Normal in size and morphology for the patient's age. Hemorrhage: None. Cerebral parenchyma: Normal. Midline shift: None. Brainstem/Cerebellum: Normal. Calvarium: Normal. Visualized Paranasal sinuses/Mastoids: Clear. Soft Tissues: Unremarkable. IMPRESSION: No acute intracranial process. RADIATION DOSE DELIVERED: Total DLP DATA REPOSITORY: All CT scans at this facility are submitted to the National Radiology Data Registry (NRDR) Dose Index Registry (DIR) with the [employer] ([employer]). RADIATION OPTIMIZATION: All CT scans at this facility use at least one of these dose optimization te chniques: automated exposure control; mA and/or kV adjustment per patient size (includes targeted exa ms where dose is matched to clinical indication); or iterative reconstruction.
[2022-07-09] MEDS: LORazepam 1 MG TAB PO (03:34)
[2022-07-09] MEDS: THIAMINE 500 MG in Normal Saline 100 ML 200 MG IVPB ×3 (05:16→20:58)
[2022-07-09] MEDS: Lidocaine Patch Removal 1 EACH TP (05:27)
[2022-07-09] MEDS: DEXTROSE 5%-LACTATED RINGERS 1,000 ML 150 ML IV ×2 (06:34→14:57)
[2022-07-09 07:06] LABS: Abs Immature Grans 0.02 10^3/uL (0.0-0.06); Absolute Basophil Count 0.02 10^3/uL (0.0-0.2); Absolute Eosinophil Count 0.05 10^3/uL (0.0-0.7); Absolute Lymphocyte Count 0.52 10^3/uL (1.2-3.4); Absolute Monocyte Count 0.27 10^3/uL (0.1-0.8); Absolute Neutrophil Count 1.81 10^3/uL (1.2-6.7); Basophils % 0.7; Eosinophils % 1.9; HCT 33.5 % (40.0-50.0); HGB 11.4 g/dL (13.5-17.5); Immature Grans % 0.7; Lymphocytes % 19.3; MCV 97 fL (80-95); MPV 9.5 fL (8.0-11.0); Neutrophils % 67.4; Platelet Count 101 10^3/uL (130-400); RBC 3.45 10^6/uL (4.36-5.78); RDW 12.8 % (11.8-14.1); RDW-SD 45.5 fL; WBC 2.69 10^3/uL (4.4-10.8)
[2022-07-09 07:10] LABS: Ammonia 24 umol/L (11-32)
[2022-07-09 07:18] LABS: Anion Gap 5.4 mmol/L (3-11); BUN 4 mg/dL (7-18); CO2 26.6 mmol/L (21.0-32.0); CREATININE 0.5 mg/dL (0.70-1.30); Calcium 8.1 mg/dL (8.5-10.1); Chloride 103 mmol/L (98-107); Estimated GFR 116.04 (mL/min/1.73m2); Glucose 124 mg/dL (74-106); Lipase 680 U/L (73-393); Magnesium 1.7 mg/dL (1.8-2.4); Potassium 3.1 mmol/L (3.5-5.1); Sodium 135 mmol/L (136-145)
--- NOTE | 2022-07-09 07:20 | W.PM.PROGNOT ---
Date of Service Date of service: 07/09/22 Time of Service: 07:20 Assessment and Plan Assessment and plan (1) Acute gallstone pancreatitis: Status: Acute Assessment and plan: We will stand by until his mental status allows for more thoughtful conversation about the role of cholecystectomy in his case. As mentioned before, it would be the recommended treatment if his pancreatitis is really thought to be from gall stones. Obviously, his alcoholism makes this case a bit more challenging. Subjective Subjective Interval history since last seen: Patient is barely awake. States he feels OK Exam GI Inspection: normal to inspection Palpation: soft and tender periumbilically Objective Last Vital Signs Temp 97.5 F L 07/09/22 03:46 Pulse 74 07/09/22 03:46 Resp 19 07/09/22 03:46 BP 137/84 07/09/22 03:46 Pulse Ox 95 07/09/22 03:46 Laboratory Results - last 24 hr 07/09/22 07/09/22 06:52 06:52 WBC 2.69 L RBC 3.45 L Hgb 11.4 L Hct 33.5 L MCV 97 H MCH 33.0 MCHC 34.0 RDW 12.8 Plt Count 101 L MPV 9.5 Immature Gran % 0.7 Neutrophils % 67.4 Lymphocytes % 19.3 Monocytes % 10.0 Eosinophils % 1.9 Basophils % 0.7 Nucleated RBC % 0.0 Absolute Neutrophils 1.81 Absolute Lymphocytes 0.52 L Absolute Monocytes 0.27 Absolute Eosinophils 0.05 Absolute Basophils 0.02 Ammonia 24 PAWSS Have you Been Recently Intoxicated or Drunk Within the Last 30 days?: Unable to Obtain Have you Ever Experienced Previous Episodes of Alcohol Withdrawal?: Unable to Obtain Have you ever Experienced Withdrawal Seizures?: Unable to Obtain Have you ever Experienced Delirium Tremens(DT)s?: Unable to Obtain Have you ever undergone Alcohol Rehabilitation Treatment (i.e, inpt ot outpatient treatment programs)?: Unable to Obtain Have you ever Experienced Blackouts?: Unable to Obtain Have you ever Combined Alcohol with other Downers within the last 90 days?: Unable to Obtain Have you ever Combined Alcohol with any other Substance of Abuse during the last 90 days?: Unable to Obtain Positive Blood Alcohol level on Presentation? [PCS.BAL]: Unable to Obtain Evidence of Increased Autonomic Activity (i.e. HR>120, tremor, sweating, agitation, nausea)?: Unable to Obtain Result: 6
[2022-07-09] MEDS: Thiamine 100 MG TAB PO (08:30)
[2022-07-09] MEDS: Multivitamin TAB 1 TAB PO (08:30)
[2022-07-09] MEDS: Folic Acid 1 MG TAB PO (08:31)
[2022-07-09] MEDS: cloNIDine 0.1 MG TAB PO (08:31)
[2022-07-09] MEDS: POTASSIUM CHLORIDE 20 MEQ/100 ML BAG 50 MEQ IVPB ×2 (10:08→12:38)
[2022-07-09] MEDS: MAGNESIUM SULFATE 1 GM/100 ML BAG IVPB (10:09)
--- NOTE | 2022-07-09 11:28 | CMPROGNOTE_ITS ---
- If Service Date Differs Date of service: 07/09/22 Time of Service: 11:28 Care Management Progress Note S/O: Chilango continues to be closely monitored and treated for withdrawal. Once he is able to engage, CM will page elementary instructional coach to meet with Chilango regarding readiness to seek additional support upon discharge. CM continues to follow. A: 61 year old male admitted to [facility] 07/04/22 for alcohol intoxication, gallstone pancreatitis P: Anticipate Chilango will discharge when ready per MD. Comprehensive CM assessment to be completed when Chilango is through withdrawal and able to engage.
[2022-07-09] MEDS: Gabapentin 300 MG CAP PO (12:38)
--- NOTE | 2022-07-09 13:50 | PGE_ITS ---
Date of Service Date of service: 07/09/22 Time of Service: 13:51 Assessment and Plan Assessment and plan (1) Alcohol dependence with withdrawal: Status: Acute Assessment and plan: Monitor on CIWA - scoring 3's Continue to hold scheduled librium s/t somnolence; continue prn ativan, He did receive one dose last night ~ 3 am for agitation with good relief. Degree of somnolence despite holding sedatives - head CT done that is negative Continue to monitor labs Lactulose held - Ammonia 24 (2) Alcoholic pancreatitis: Status: Acute Assessment and plan: Surgical consult - Ultrasound does show gallstones.? But no dilated ducts.? We will watch his selena irubin closely which is climbed today. There is no sign of acute cholecystitis. Patient is not currently stable for surgery because of his acute withdrawal - seen by surgery again today and they are holding as there is no urgent need Continue IVF. D5LR 150ml/h does drink water when taking pills without difficulty - mostly asleep, improved PO intake -clears and ensure (3) Urinary retention: Status: Acute Assessment and plan: Waking to void. Nursing did get him up 2 assist. (4) Dilated bile duct: Status: Acute Assessment and plan: As above (5) Alcohol intoxication: Status: Acute Assessment and plan: As above (6) Essential hypertension: Assessment and plan: Monitor BP in setting of ETOH w/d - it has improved to ~ 120/70s (7) Type II diabetes mellitus: Assessment and plan: SSI Glucose in the 124 - no glucose required (8) Narcotic withdrawal: Status: Acute Assessment and plan: Continue to hold methadone s/t somnolence; discontinued clonodine (9) Hypomagnesemia: Status: Acute Assessment and plan: 1.7 replete, recheck tomorrow (10) Hypokalemia: Status: Acute Assessment and plan: 3.1 Replete; recheck in am (11) DVT prophylaxis: Status: Acute Assessment and plan: SC enoxaparin (12) Discharge planning issues: Status: Acute Assessment and plan: Full code; slow to discharge, has a long way to go with PT Discussed with Dr Galvan Subjective Subjective Patient reports: no new complaints, tolerating liquids well, voiding w/o difficulty, bowel movement, diarrhea and afebrile; denies nausea, vomiting or shortness of breath Interval history since last seen: Improved, requests to void and is no longer retaining urine. Is able to stay awake longer ~ 30 min. Continues to need 2 person assist - PT is consulted. Exam Narrative Exam Narrative: Sitting in a chair, listing to the left - continues to complain of left shoulder pain - XR are neg Const General: cooperative, not healthy appearing, no acute distress, disheveled and lethargic Orientation: awake, not oriented to person, not oriented to place, not oriented to time and confused Limitations: altered mental status [facility] Head: normocephalic Ears: other (He seems to be a little hard of hearing) Eyes Alignment and Position: alignment normal Conjunctivae: conjunctivae normal Sclera: sclerae normal Neck Neck: normal visual inspection, full ROM and no lymphadenopathy Resp Effort & Inspection: decreased respiratory effort and no use of accessory muscles Auscultation: bronchial breath sounds Cardio Rhythm: regular rhythm Heart Sounds: S1 normal and S2 normal GI Inspection: normal to inspection and non-distended Palpation: soft, no hernias and tender Auscultation: normal bowel sounds Skin General skin exam: no jaundice Extrem Right lower extremity: no edema Left lower extremity: no edema Objective Last Vital Signs Temp 36.2 C L 07/09/22 11:10 Pulse 74 07/09/22 11:10 Resp 18 07/09/22 11:10 BP 118/73 07/09/22 11:10 Pulse Ox 98 07/09/22 11:10 Laboratory Results - last 24 hr 07/09/22 07/09/22 07/09/22 06:52 06:52 06:52 WBC 2.69 L RBC 3.45 L Hgb 11.4 L Hct 33.5 L MCV 97 H MCH 33.0 MCHC 34.0 RDW 12.8 Plt Count 101 L MPV 9.5 Immature Gran % 0.7 Neutrophils % 67.4 Lymphocytes % 19.3 Monocytes % 10.0 Eosinophils % 1.9 Basophils % 0.7 Nucleated RBC % 0.0 Absolute Neutrophils 1.81 Absolute Lymphocytes 0.52 L Absolute Monocytes 0.27 Absolute Eosinophils 0.05 Absolute Basophils 0.02 Sodium 135 L Potassium 3.1 L Chloride 103 Carbon Dioxide 26.6 Anion Gap 5.4 BUN 4 L Creatinine 0.5 L Est GFR (CKD-EPI 2020) 116.04 Glucose 124 H Calcium 8.1 L Magnesium 1.7 L Ammonia 24 Lipase 07/09/22 06:52 WBC RBC Hgb Hct MCV MCH MCHC RDW Plt Count MPV Immature Gran % Neutrophils % Lymphocytes % Monocytes % Eosinophils % Basophils % Nucleated RBC % Absolute Neutrophils Absolute Lymphocytes Absolute Monocytes Absolute Eosinophils Absolute Basophils Sodium Potassium Chloride Carbon Dioxide Anion Gap BUN Creatinine Est GFR (CKD-EPI 2020) Glucose Calcium Magnesium Ammonia Lipase 680 H PAWSS Have you Been Recently Intoxicated or Drunk Within the Last 30 days?: Unable to Obtain Have you Ever Experienced Previous Episodes of Alcohol Withdrawal?: Unable to Obtain Have you ever Experienced Withdrawal Seizures?: Unable to Obtain Have you ever Experienced Delirium Tremens(DT)s?: Unable to Obtain Have you ever undergone Alcohol Rehabilitation Treatment (i.e, inpt ot outpatient treatment programs)?: Unable to Obtain Have you ever Experienced Blackouts?: Unable to Obtain Have you ever Combined Alcohol with other Downers within the last 90 days?: Unable to Obtain Have you ever Combined Alcohol with any other Substance of Abuse during the last 90 days?: Unable to Obtain Positive Blood Alcohol level on Presentation? [PCS.BAL]: Unable to Obtain Evidence of Increased Autonomic Activity (i.e. HR>120, tremor, sweating, agitation, nausea)?: Unable to Obtain
[2022-07-09] MEDS: Lidocaine 5% Patch 1 PATCH TP (18:16)
[2022-07-10 03:23] VITALS: BP 115/65; PULSE 79; RESP 18; TEMP 36.7; O2SAT 97
[2022-07-10] MEDS: Lidocaine Patch Removal 1 EACH TP (05:17)
[2022-07-10] MEDS: THIAMINE 500 MG in Normal Saline 100 ML 200 MG IVPB ×3 (05:17→21:42)
[2022-07-10 07:22] LABS: Abs Immature Grans 0.01 10^3/uL (0.0-0.06); Absolute Basophil Count 0.01 10^3/uL (0.0-0.2); Absolute Eosinophil Count 0.05 10^3/uL (0.0-0.7); Absolute Lymphocyte Count 0.57 10^3/uL (1.2-3.4); Absolute Monocyte Count 0.41 10^3/uL (0.1-0.8); Absolute Neutrophil Count 1.74 10^3/uL (1.2-6.7); Basophils % 0.4; Eosinophils % 1.8; HCT 34.1 % (40.0-50.0); HGB 11.9 g/dL (13.5-17.5); Immature Grans % 0.4; Lymphocytes % 20.4; MCHC 34.9 % (32.0-36.0); MCV 95 fL (80-95); MPV 9.1 fL (8.0-11.0); Monocytes % 14.7; Neutrophils % 62.3; Platelet Count 116 10^3/uL (130-400); RBC 3.61 10^6/uL (4.36-5.78); RDW 12.9 % (11.8-14.1); RDW-SD 44.4 fL; WBC 2.79 10^3/uL (4.4-10.8)
[2022-07-10 07:33] LABS: Ammonia 25 umol/L (11-32)
[2022-07-10 07:42] LABS: Anion Gap 6.2 mmol/L (3-11); BUN 3 mg/dL (7-18); CO2 26.8 mmol/L (21.0-32.0); CREATININE 0.5 mg/dL (0.70-1.30); Calcium 8.4 mg/dL (8.5-10.1); Chloride 105 mmol/L (98-107); Estimated GFR 116.04 (mL/min/1.73m2); Glucose 122 mg/dL (74-106); Lipase 658 U/L (73-393); Magnesium 1.7 mg/dL (1.8-2.4); Potassium 3.5 mmol/L (3.5-5.1); Sodium 138 mmol/L (136-145)
[2022-07-10 08:04] VITALS: BP 133/79; PULSE 71; RESP 18; TEMP 36.2; O2SAT 98
[2022-07-10] MEDS: Multivitamin TAB 1 TAB PO (08:19)
[2022-07-10] MEDS: Folic Acid 1 MG TAB PO (08:19)
[2022-07-10] MEDS: Gabapentin 300 MG CAP PO (08:19)
[2022-07-10] MEDS: Normal Saline Flush 10 ML SYR IVP (08:21)
[2022-07-10] MEDS: Magnesium Gluconate 500 MG TAB PO (09:34)
[2022-07-10] MEDS: Potassium Chloride 10 MEQ CAPCR 20 MEQ PO ×2 (09:34→20:32)
--- NOTE | 2022-07-10 10:07 | PT.INIE ---
Date of service: 07/10/22 Time of Service: 10:07 PT Notes Visit Reasons: Alcohol Intoxication, Gallstone Pancreatitis Physical Therapy Inpatient Initial Evaluation Date: 07/10/2022 Referring Doctor: Zabrina Whiting NP PT Orders: PT CONSULT: D/C none PT-dependent Precautions: Fall. Standard. WBAT on L UE with AD. Patient Profile/Admitting Diagnosis: Chilango is a 61-year-old male who presented to the ED on 07/04/2022 due to EtOH detoxification, vomiting, abdominal pain. Patient was diagnosed with fracture of left Clavicle, EtOH dependence with withdrawal, EtOH pancreatitis, urinary retention, hypomagnesemia, and hypokalemia. PMHX: All Active Problems? Acute gallstone pancreatitis (Acute) Alcohol intoxication (Acute) No-show for appointment (Acute) Arthritis of right glenohumeral joint (Acute) Fracture of right clavicle (Acute) distal clavicle 12/12/21Nausea (Acute) Varicose veins of both lower extremities (Acute) Hyperglycemia (Acute) Low back pain (Acute) Prostatitis (Acute) Inflammatory disease of liver (Chronic) Atrophic gastritis (Acute) Heart block (Acute) Claustrophobia (Acute) Vitamin D deficiency (Acute) Disorder of endocrine system (Acute) Medical History? ADHD Alcoholism Anemia of chronic disease Depressive disorder Essential hypertension GERD (gastroesophageal reflux disease) Gout Tobacco use disorder Type II diabetes mellitus Surgical History? History of foot surgery History of tonsillectomy Social History/Home Situation: Lives in a private home with 5 steps to enter with a rail on one side. Independent with no assistive device for mobility ADL performance prior to admission. Equipment Owned/DME: None Subjective: Reports minimal discomfort on L shoulder due to L clavicle fracture. Reports pain in R shoudler from arthritis. Agreeable to going for a walk with AD. Objective: General Observation: Seated on chair. IV access and left UE. Venous varicosities in B legs with R>>L. Mental Status: Alert. Able to pay attention, focus, and respond appropriately. Pain: 2-3/10 in L shoulder and R shoulder Vital Signs: WNL as closley monitored by nursing staff ROM: Right Upper Extremity: Shoulder Flexion allows only about 20 degrees. Shoulder abduction allows only about 10 degrees. Elbow flexion WFL. Wrist flexion WFL. Functional opening and closing of hand WFL. Left Upper Extremity: Shoulder Flexion did not want to move L shoulder due to pain. Shoulder abduction did not want to move L shoulder due to pain. Elbow flexion WFL. Wrist flexion WFL. Functional opening and closing of hand WFL. Right Lower Extremity: Hip flexion WFL. Hip abduction WFL. Knee flexion WFL. Ankle dorsiflexion WFL. Ankle plantarflexion WFL. Left Lower Extremity: Hip flexion WFL. Hip abduction WFL. Knee flexion WFL. Ankle dorsiflexion WFL. Ankle plantarflexion WFL. Strength: Right Upper Extremity: Shoulder flexors 2-/5. Shoulder abductors 2-/5. Elbow flexors 3-/5. Elbow extensors 3-/5. Head Field Hockey Coach strong. Left Upper Extremity: Shoulder flexors 2-/5. Shoulder abductors 2-/5. Elbow flexors 3-/5. Elbow extensors 3-/5. Head Field Hockey Coach strong. Right Lower Extremity: Hip flexors 4-/5. Hip abductors 4-/5. Knee flexors 4-/5. Knee extensors 4-/5. Ankle dorsiflexors 4-/5. Ankle plantarflexors 4-/5. Left Lower Extremity: Hip flexors 4-/5. Hip abductors 4-/5. Knee flexors 4-/5. Knee extensors 4-/5. Ankle dorsiflexors 4-/5. Ankle plantarflexors 4-/5. Bed Mobility/Transfers: Sit to stand stand by assist Stand to sit stand by assist Bed to bedside stand by assist with FWW Reclining chair to bed with stand by assist with FWW Gait: Instructed patient with level surface ambulation of 150 feet requiring stand by assist. Mariana decreased. Step height decreased. Step length decreased. Verbal cueing provided for erect posture. Balance: Static Sitting: Normal Dynamic Sitting: Normal Static Standing: Fair Dynamic Standing: Fair Special Tests: Mobility Limitations Standardized Measure [facility] AM-PAC 6 clicks Basic Mobility Inpatient Short Form: Raw Score: 23 CMS Score: 11% deficit Informed Consent/Education: Patient was instructed in purpose of PT consult and plan of care. Agreeable to proceed with established PT POC to achieve personal goals. Assessment: Patient presents with clinical signs and symptoms consistent with current/admitting diagnoses that have resulted to mobility limitations, gait instability, generalized weakness, and overall ADL decline as demonstrated by the following impairment level findings: 1. Decreased strength to B UE/LE major muscle groups 2. Impaired sitting/standing balance 3. Impaired activity tolerance 4. Limitation of joint range of motion in B shuoulders Impairments are contributing to the following functional limitations: 1. Difficulty with ambulation without assistive device 2. Increased completion time for mobility ADL performance 3. Increased risk for falls 4. Difficulty with managing steps alone safely Patient is assessed as a 31851 moderate complexity based on the following: History: 61-year-old male with past medical history as indicated above Examination: Demonstrable impairment in strength, balance, and mobility level with underlying impairments and functional limitations as exhibited above as well as deficit score of 23% utilizing the [facility] Mobility Inpatient Short Form Presentation: Evolving Decision Makin moderate complexity Goals: Goals X1 week 1. Supine-Sit independent 2. Sit-Supine independent 3. Sit-Stand independent 4. Stand-Sit independent with SPC 5. Bed-Chair independent with SPC 6. Chair-Bed independent with SPC 7. Independent gait on level surface with use of SPC for at least 500 feet without report of pain nor dyspnea 8. Independent stair negotiation while holding onto 1 rails for at least 5 steps without report of pain nor dyspnea 9. Independent with home exercise program 10. Good static and dynamic standing balance/tolerance Plan of Care/Treatment Plan: 1-2x/day, 7 days/week x 1 week. Plan of care has been reviewed with the SENIOR MARKETING COORDINATOR providing the service under Physical Therapy direction. Initiate Physical Therapy intervention for pain management as needed, strengthening, bed mobility, transfers, gait, stairs, balance training, and use of assistive device. DISCHARGE RECOMMENDATIONS: [] Home with no services [] [X] Home with services. Patient will benefit from home health PT services in order to progress mobility level using least restrictive assistive ambulatory device, assess home safety, identify additional equipment needs, and establish a functional maintenance program that will increase ability of patient to remain at home. [] Home with outpatient PT [] [] SNF for continued rehabilitation [] [] Alf Care [] [] SNF versus LTC based on ability to participate and progress [] TREATMENT CODE/TIME: 13912 x 20 minutes, 45732 x 13 minutes knee at 10:07 AM. Thank you for the opportunity to participate in the care of this patient. Mounika Lund PT, DPT, CLT [facility] [place], [place]
--- NOTE | 2022-07-10 10:13 | PGE_ITS ---
Date of Service Date of service: 07/10/22 Time of Service: 10:13 Assessment and Plan Assessment and plan (1) Alcohol dependence with withdrawal: Status: Acute Assessment and plan: no withdrawal symptoms noted. not scoring on ciwa. will discontinue monitoring life skills coach requested. (2) Alcoholic pancreatitis: Status: Acute Assessment and plan: Surgical consult - Ultrasound does show gallstones.? But no dilated ducts.? We will watch his bilir ubin closely which is climbed today. There is no sign of acute cholecystitis. Patient is not currently stable for surgery because of his acute withdrawal - seen by surgery again today and they are holding as there is no urgent need tolerating fluids -clears and ensure. no further pain. will need outpatient follow up (3) Urinary retention: Status: Acute Assessment and plan: voiding well (4) Opioid dependence: Status: Acute Assessment and plan: was given his methadone after being off for several days and was extremely sedate. discontinued. (5) Essential hypertension: Assessment and plan: stable. (6) Type II diabetes mellitus: Assessment and plan: SSI Glucose in the 124 - no glucose required (7) Hypomagnesemia: Status: Acute Assessment and plan: normalized. (8) Hypokalemia: Status: Acute Assessment and plan: repleted (9) DVT prophylaxis: Status: Acute Assessment and plan: SC enoxaparin (10) Discharge planning issues: Status: Acute Assessment and plan: Full code; anticipate a discharge to home. life skills coach contacted. encouraged to reach out to substance abuse facilities for rehab. Discussed with Dr Kaur Exam Const General: cooperative and no acute distress Orientation: alert, awake and oriented x3 HENMT Head: normocephalic Eyes Alignment and Position: alignment normal Conjunctivae: conjunctivae normal Sclera: sclerae normal Neck Neck: normal visual inspection and full ROM Resp Effort & Inspection: normal respiratory effort Auscultation: clear to auscultation bilaterally Cardio Rhythm: regular rhythm GI Inspection: normal to inspection and non-distended Palpation: soft Auscultation: normal bowel sounds Skin General skin exam: no jaundice Extrem Right lower extremity: no edema Left lower extremity: no edema Objective Last Vital Signs Temp 36.2 C L 07/10/22 08:04 Pulse 71 07/10/22 08:04 Resp 18 07/10/22 08:04 BP 133/79 07/10/22 08:04 Pulse Ox 98 07/10/22 08:04 Laboratory Results - last 24 hr 07/10/22 07/10/22 07/10/22 07:10 07:10 07:10 WBC 2.79 L RBC 3.61 L Hgb 11.9 L Hct 34.1 L MCV 95 MCH 33.0 MCHC 34.9 RDW 12.9 Plt Count 116 L MPV 9.1 Immature Gran % 0.4 Neutrophils % 62.3 Lymphocytes % 20.4 Monocytes % 14.7 Eosinophils % 1.8 Basophils % 0.4 Nucleated RBC % 0.0 Absolute Neutrophils 1.74 Absolute Lymphocytes 0.57 L Absolute Monocytes 0.41 Absolute Eosinophils 0.05 Absolute Basophils 0.01 Sodium 138 Potassium 3.5 Chloride 105 Carbon Dioxide 26.8 Anion Gap 6.2 BUN 3 L Creatinine 0.5 L Est GFR (CKD-EPI 2020) 116.04 Glucose 122 H Calcium 8.4 L Magnesium 1.7 L Ammonia 25 Lipase 658 H PAWSS Have you Been Recently Intoxicated or Drunk Within the Last 30 days?: Unable to Obtain Have you Ever Experienced Previous Episodes of Alcohol Withdrawal?: Unable to Obtain Have you ever Experienced Withdrawal Seizures?: Unable to Obtain Have you ever Experienced Delirium Tremens(DT)s?: Unable to Obtain Have you ever undergone Alcohol Rehabilitation Treatment (i.e, inpt ot outpatient treatment programs)?: Unable to Obtain Have you ever Experienced Blackouts?: Unable to Obtain Have you ever Combined Alcohol with other Downers within the last 90 days?: Unable to Obtain Have you ever Combined Alcohol with any other Substance of Abuse during the last 90 days?: Unable to Obtain Positive Blood Alcohol level on Presentation? [PCS.BAL]: Unable to Obtain Evidence of Increased Autonomic Activity (i.e. HR>120, tremor, sweating, kahlil tation, nausea)?: Unable to Obtain
[2022-07-10 11:30] VITALS: BP 126/79; PULSE 87; RESP 18; TEMP 36.4; O2SAT 99
[2022-07-10] MEDS: Acetaminophen 325 MG TAB 650 MG PO (11:55)
--- NOTE | 2022-07-10 13:21 | PT.INTREAT ---
Date of service: 07/10/22 Time of Service: 12:58 PT Notes Visit Reasons: Alcohol Intoxication, Gallstone Pancreatitis Inpatient Physical Therapy Treatment Note [facility] Date: 07/10/2022 PRECAUTIONS: Activity as tolerated, fall, seizure SUBJECTIVE: Chilango is pleasant and agreeable to participating in PT. He reports that his stomach hurts and that he would like to get back into bed. He states during the session that he is ashamed of myself. OBJECTIVE: PAIN: No c/o pain BED MOBILITY/TRANSFERS: Sit-supine: I Sit-stand: SBA Stand-sit: SBA GAIT Assistive Device: FWW Weight bearing: Full Assist: CGA-SBA Distance: 400' Deviation: Improved step length, severe cervical kyphosis THEREX: Patient was instructed in cervical extension with gait training 10x + 5x10 second holds ASSESSMENT: Patient demonstrates improved activity tolerance, tolerating a progression in gait distance with FWW support and demonstrating increased step length and height. PLAN: Continue with global strengthening and general conditioning for improved mobility and activity tolerance, as well as gait training for improved gait mechanics and safety with ambulation. TREATMENT CODE/TIME: 18 minutes; 21221 (12:58)
[2022-07-10 15:58] VITALS: BP 148/82; PULSE 77; RESP 17; TEMP 36; O2SAT 98
--- NOTE | 2022-07-10 16:51 | CMPROGNOTE_ITS ---
- If Service Date Differs Date of service: 07/10/22 Time of Service: 16:51 Care Management Progress Note S/O: Chilango continues to be closely monitored and treated for withdrawal. He met with the disaster recovery specialist today. Per provider, anticipate he may be discharge ready as soon as tomorrow. CM continues to follow. A: 61 year old male admitted to [facility] 07/04/22 for alcohol intoxication, gallstone pancreatitis P: Anticipate Chilango will discharge when ready per MD, as soon as tomorrow. He will follow up with community providers and transport via private vehicle with his significant other.
[2022-07-10] MEDS: Insulin Aspart 300 UNITS/3 ML PEN SC (20:32)
[2022-07-11 00:24] VITALS: BP 158/90; PULSE 84; RESP 15; TEMP 36.9; O2SAT 99
[2022-07-11] MEDS: THIAMINE 500 MG in Normal Saline 100 ML 200 MG IVPB (05:21)
[2022-07-11 06:59] LABS: Anion Gap 8.4 mmol/L (3-11); BUN 5 mg/dL (7-18); CO2 24.6 mmol/L (21.0-32.0); CREATININE 0.6 mg/dL (0.70-1.30); Calcium 9.2 mg/dL (8.5-10.1); Chloride 104 mmol/L (98-107); Estimated GFR 109.83 (mL/min/1.73m2); Glucose 103 mg/dL (74-106); Magnesium 1.8 mg/dL (1.8-2.4); Potassium 3.7 mmol/L (3.5-5.1); Sodium 137 mmol/L (136-145)
[2022-07-11 08:12] VITALS: BP 166/90; PULSE 88; RESP 17; TEMP 36; O2SAT 96
[2022-07-11] MEDS: Magnesium Gluconate 500 MG TAB PO (08:29)
[2022-07-11] MEDS: Gabapentin 300 MG CAP PO (08:29)
[2022-07-11] MEDS: Potassium Chloride 10 MEQ CAPCR 20 MEQ PO (08:29)
--- NOTE | 2022-07-11 11:21 | CMDISCH_ITS ---
- If Service Date Differs Date of service: 07/11/22 Time of Service: 11:21 LACE Index Scoring Tool - Questions: Length of Stay (in days): 7 - 13 Acuity (Admit via E.D.?): Yes Comorbidities: Diabetes w/o Complication, Mild Liver/Renal Disease E.D. Visits: 2 - Answers: Total Score: 13 Risk of Readmission: High Risk Care Management Discharge Reason for Hospitalization: Alcohol intoxication, gallstone pancreatitis Discharge Plan: Chilango will discharge when ready per MD, he was connected with a women's soccer coach for service connection follow up. He will follow up with community providers and transport via private vehicle with his significant other. Patient/Family Education Needs: Review discharge instructions, discuss Ask Me Three.
--- NOTE | 2022-07-11 11:38 | W.PM.DS.N ---
Date of service: 07/11/22 Time of Service: 11:38 DS: Diagnosis Discharge Diagnosis (1) Alcohol dependence with withdrawal: Status: Acute (2) Alcoholic pancreatitis: Status: Acute (3) Urinary retention: Status: Acute (4) Opioid dependence: Status: Acute (5) Essential hypertension: (6) Type II diabetes mellitus: (7) Hypomagnesemia: Status: Acute (8) Hypokalemia: Status: Acute Discharge Plan Disposition Patient Disposition: HOME Condition: Stable Discharge Details Reason For Visit: Alcohol Intoxication, Gallstone Pancreatitis Admit Date/Time: 07/04/22 22:38 Admit Provider: Wander Kaur Attending Provider: Wander Kaur Primary Care Provider: Rafi Macedo [facility] Course Hospital Course: This is a 61 year old male alcoholic, former IV drug abuser who is on methadone program, essential hypertension, GERD, DM type 2, anemia of chronic disease, who presented to the ED intoxicated with alcohol level of 145, urine drug screen positive for methadone but otherwise negative originally presented to the ED specifically requesting to detox but was found to have symptoms of acute abdominal discomfort and workup revealed him to have cholelithiasis, pericholecystic fluid and gallbladder sludge, and peripancreatic fluid and inflammatory stranding and possible distal common bile duct stone. Labs revealed lipase of 505, minimal elevation of transaminase and alkaline phosphatase (AST 92, alkaline phosphatase 155) but normal bilirubin 0.7. CBC did not show any anemia or leukocytosis. Patient reported epigastric and RUQ abdominal pain but then also talks about having shoulder pain and points to his left shoulder (not his right shoulder). Case was discussed with general surgery who indicated that she would consult on the patient but due to concern of acute alcohol withdrawal the patient was admitted on the hospitalist service. He was given ativan in addition to his methadone dose and was noted to be over sedated. Because of his somnolence the methadone was ultimately discontinued and he was treated with ativan and librium. Eventually the librium was discontinued as well d/t over sedation. Surgery continued to follow and ultrasound showed no evidence of acute cholecystitis and plan is for further outpatient follow up. He stabilized from alcohol withdrawal, no longer requiring ativan or librium. He has been without his methadone and experiencing no signs of withdrawals. discharge discussed with Dr Kaur ? Home Meds and New Rx's Prescriptions: New gabapentin 300 mg Capsule 300 mg PO DAILY Qty: 30 0RF Discontinued bupropion HCl (smoking deter) 150 mg tablet extended release 12 hr See Rx Instructions PO BID Qty: 180 0RF Rx Instructions: Start 150 mg QD x 3 days, then increase to BID PO twice a day; indomethacin 50 mg capsule 50 mg PO TID PRN (Reason: gout attacks) Qty: 30 0RF Rx Instructions: administer with food or milk clonidine HCl 0.2 mg tablet 0.2 mg PO TID PRN (Reason: alcohol withdrawal) Qty: 90 0RF promethazine 25 mg tablet 25 mg PO TID PRN (Reason: nausea and vomiting) Qty: 90 0RF cyclobenzaprine 7.5 mg tablet 7.5 mg PO TID PRNQty: 10 0RF methadone 10 mg/mL Concentrate 170 mg PO DAILY Rx Instructions: 170 MG PO DAILY. Dose verified with [facility]. Last dosed 06/28/22. Discharge Instructions Instructions: Pancreatitis (DC) Additional Instructions: you have been medically stable with no withdrawal off your home medication. We administered your methadone on one occasion and it caused excessive sedation as you had been off it for several days. You have not required a replacement or step down and have remained medically stable. You will need to follow up outpatient with general surgery to discuss your gallstone pancreatitis. you should avoid alcohol and continue to follow up outpatient with your recovery engineer, consider inpatient rehabilitation and seek help immediately if needed. Stand Alone Forms: Nursing Discharge Form Referrals: Caprice Levy MD [ [facility]FF PHYSICIAN] - 07/17/22 1:30 pm Activity:: Activity as Tolerated Equipment/Supplies:: No Equipment Needed Diet:: As Tolerated Discharge Orders Discharge Orders: Discharge Order (Routine); Ordered 07/11/22 Ordered By: Vesna Renae Discharge Data Discharge Date/Time-TO BE ENTERED AT DEPARTURE: 07/11/22 16:08 DS: Summary Time Spent with Patient providing and/or coordinating discharge services: Greater than 30 minutes Status at Discharge Functional status at discharge: independent ambulation Overall status at discharge: patient is progressing back to baseline Mental Status: mental status grossly normal Speech and Movement: speech and movement normal Mood: congruent mood Affect: normal affect Exam Const General: cooperative and no acute distress Orientation: alert, awake and oriented x3 HENMT Head: normocephalic Eyes Alignment and Position: alignment normal Conjunctivae: conjunctivae normal Sclera: sclerae normal Neck Neck: normal visual inspection and full ROM Resp Effort & Inspection: normal respiratory effort Auscultation: clear to auscultation bilaterally Cardio Rhythm: regular rhythm GI Inspection: normal to inspection and non-distended Palpation: soft Auscultation: normal bowel sounds Skin General skin exam: no jaundice Extrem Right lower extremity: no edema Left lower extremity: no edema Psych Mental Status: mental status grossly normal Speech and Movement: speech and movement normal Mood: congruent mood Affect: normal affect DS: Data Vitals/I&O Vitals and I&O: Vital Signs Temperature 36.0 C L 07/11/22 08:12 Temperature Source Tympanic 07/11/22 08:12 Pulse 88 07/11/22 08:12 Pulse Rhythm Regular 07/11/22 09:19 Pulse 84 07/05/22 00:01 Respiratory Rate 17 07/11/22 08:12 Respiratory Effort Non-Labored 07/11/22 09:19 Respiratory Depth Normal 07/11/22 09:19 Respiratory Pattern Normal 07/11/22 09:19 Blood Pressure 166/90 H 07/11/22 08:12 Blood Pressure Mean 102 07/05/22 00:01 Blood Pressure Position Sitting 07/04/22 18:09 Pulse Oximetry 96 07/11/22 08:12 Oxygen Delivery Method Room Air 07/11/22 08:12 Oxygen Flow Rate 0 07/11/22 08:12 Fraction of Inspired Oxygen (FIO2) 32 07/05/22 19:28 Pain Level 10 07/11/22 08:12 Comment 07/07/22 15:37 Intake & Output 07/10/22 07/10/22 07/11/22 11:59 23:59 11:59 Intake Total 1072.5 / 2125.0 1052.5 / 2125.0 Output Total 3575 / 5005 1430 / 5005 2024 Balance -2502.5 / -2880.0 -377.5 / -2880.0 -2024 Weight 71.6 kg 67.5 kg Intake: IV 262.5 / 1315.0 1052.5 / 1315.0 Oral 810 / 810 Output: Urine 3575 / 5005 1430 / 5005 1325 / 1325 Stool 700 / 700 Other: Urine Color Yellow Yellow Yellow Urine Appearance Clear Clear Clear Urine Odor Normal None Foul Comment Mixed with stool. mixed with liquid green stool Stool Size Small Stool Characteristics Soft Liquid Liquid Brown Green Green Voiding Methods Urinal Urinal Bedside Commode Data Completed and Pending Labs on day of discharge: Labs from last 24 hours 07/11/22 05:32 Sodium 137 Potassium 3.7 Chloride 104 Carbon Dioxide 24.6 Anion Gap 8.4 BUN 5 L Creatinine 0.6 L Est GFR (CKD-EPI 2020) 109.83 Glucose 103 Calcium 9.2 Magnesium 1.8 PFSH All Active Problems (Updated 07/10/22 @ 10:14 by Vesna Renae NP) Opioid dependence (Acute) Hypomagnesemia (Acute) Urinary retention (Acute) Dilated bile duct (Acute) Discharge planning issues (Acute) DVT prophylaxis (Acute) Hypokalemia (Acute) Alcoholic pancreatitis (Acute) Alcohol dependence with withdrawal (Acute) Narcotic withdrawal (Acute) Acute gallstone pancreatitis (Acute) Alcohol intoxication (Acute) No-show for appointment (Acute) Arthritis of right glenohumeral joint (Acute) Fracture of right clavicle (Acute) distal clavicle 12/12/21 Varicose veins of both lower extremities (Acute) Hyperglycemia (Acute) Low back pain (Acute) Prostatitis (Acute) Inflammatory disease of liver (Chronic) Atrophic gastritis (Acute) Heart block (Acute) Claustrophobia (Acute) Vitamin D deficiency (Acute) Disorder of endocrine system (Acute) Medical History ADHD Alcoholism Anemia of chronic disease Depressive disorder Essential hypertension GERD (gastroesophageal reflux disease) Gout Tobacco use disorder Type II diabetes mellitus Surgical History History of foot surgery History of tonsillectomy Social History Smoking/Tobacco Use Status: Current every day Quit status: considering quitting Counseling given: support medications Smoking risk assessment performed?: Yes Alcohol Intake: current Alcohol Intake frequency: 3 or more drinks per day Drug use: Current Sobriety Substance use type: does not use Details: H/O substance abuse - heroin Adopted: No Housing: other Details: camper Communication Needs: None current occupation: disabled Pets and animals: No Current gender identity: male What is your relationship status?: don't know How often do you talk on the phone with friends or family?: three or more times per week How often do you get together with friends or relatives?: three or more times per week Panel score (0-1 are the most socially isolated patients): 1 What type of physical activity do you participate in: none Seatbelt use: sometimes Fire extinguisher in home: No Carbon monox detector in home: No Firearms in home: No Do you feel safe at home: Yes
[2022-07-11] MEDS: Insulin Aspart 300 UNITS/3 ML PEN SC (12:33)
--- NOTE | 2022-07-11 19:54 | INDS_ITS ---
Date of service: 07/11/22 PT Notes Visit Reasons: Alcohol Intoxication, Gallstone Pancreatitis Physical Therapy Inpatient Discharge Summary Date: 07/11/2022 Dates of service 07/10/2022 through 07/11/2022 This is a clinical summary of care provided for the duration of dates listed above. No charge was made in the completion of this documentation. Referring Doctor: Zabrina Whiting NP PT Orders: PT CONSULT: D/C none PT-dependent Precautions: Fall. Standard. WBAT on? L UE with AD. Patient Profile/Admitting Diagnosis:Jorje Kee is a 61-year-old male who presented to the ED on 07/04/2022 due to EtOH detoxification, vomiting, abdominal pain.? Patient was diagnosed with fracture of left Clavicle, EtOH dependence with withdrawal, EtOH pancreatitis, urinary retention, hypomagnesemia, and hypokalemia. PMHX: All Active Problems? Acute gallstone pancreatitis (Acute) Alcohol intoxication (Acute) No-show for appointment (Acute) Arthritis of right glenohumeral joint (Acute) Fracture of right clavicle (Acute) distal clavicle 12/12/21Nausea (Acute) Varicose veins of both lower extremities (Acute) Hyperglycemia (Acute) Low back pain (Acute) Prostatitis (Acute) Inflammatory disease of liver (Chronic) Atrophic gastritis (Acute) Heart block (Acute) Claustrophobia (Acute) Vitamin D deficiency (Acute) Disorder of endocrine system (Acute) Medical History? ADHD Alcoholism Anemia of chronic disease Depressive disorder Essential hypertension GERD (gastroesophageal reflux disease) Gout Tobacco use disorder Type II diabetes mellitus Surgical History? History of foot surgery History of tonsillectomy Social History/Home Situation: Lives in a private home with 5 steps to enter with a rail on one side.? Independent with no assistive device for mobility ADL performance prior to admission. Equipment Owned/DME: None Subjective: NT. See most recent HVAC MECHANIC notes. Objective: General Observation: NT. See most recent HVAC MECHANIC notes. Mental Status: NT. See most recent HVAC MECHANIC notes. Pain: NT. See most recent HVAC MECHANIC notes. Vital Signs: NT. See most recent HVAC MECHANIC notes. ROM: Right Upper Extremity: ? Shoulder Flexion allows only about 20 degrees. Shoulder abduction allows only about 10 degrees. Elbow flexion WFL. Wrist flexion WFL. Functional opening and closing of hand WFL. Left Upper Extremity:? Shoulder Flexion did not want to move L shoulder due to pain. Shoulder abduction did not want to move L shoulder due to pain. Elbow flexion WFL. Wrist flexion WFL. Functional opening and closing of hand WFL. Right Lower Extremity:? Hip flexion WFL. Hip abduction WFL. Knee flexion WFL. Ankle dorsiflexion WFL. Ankle plantarflexion WFL. Left Lower Extremity:? Hip flexion WFL. Hip abduction WFL. Knee flexion WFL. Ankle dorsiflexion WFL. Ankle plantarflexion WFL. Strength: Right Upper Extremity: Shoulder flexors 2-/5. Shoulder abductors 2-/5. Elbow flexors 3-/5. Elbow extensors 3-/5. [employer] Assessment Specialist strong. Left Upper Extremity: Shoulder flexors 2-/5. Shoulder abductors 2-/5. Elbow flexors 3-/5. Elbow extensors 3-/5. [employer] Assessment Specialist strong. Right Lower Extremity: Hip flexors 4-/5. Hip abductors 4-/5. Knee flexors 4-/5. Knee extensors 4-/5. Ankle dorsiflexors 4-/5. Ankle plantarflexors 4-/5. Left Lower Extremity: Hip flexors 4-/5. Hip abductors 4-/5. Knee flexors 4-/5. Knee extensors 4-/5. Ankle dorsiflexors 4-/5. Ankle plantarflexors 4-/5. BED MOBILITY/TRANSFERS: ? Sit-supine: I Sit-stand: SBA ? Stand-sit: SBA? GAIT? Assistive Device: FWW? Weight bearing: Full Assist: CGA-SBA? Distance:? 400' ? Deviation: Improved step length, severe cervical kyphosis Balance: Static Sitting: Normal Dynamic Sitting: Normal Static Standing: Fair Dynamic Standing: Fair Assessment: Patient presents with clinical signs and symptoms consistent with current/admitting diagnoses that have resulted to mobility limitations, gait instability, generalized weakness, and overall ADL decline as demonstrated by the following impairment level findings: 1.? Decreased strength to B UE/LE major muscle groups 2.? Impaired sitting/standing balance 3.? Impaired activity tolerance 4.? Limitation of joint range of motion in B shuoulders Impairments are contributing to the following functional limitations: 1.? Difficulty with ambulation without assistive device 2.? Increased completion time for mobility ADL performance 3.? Increased risk for falls 4.? Difficulty with managing steps alone safely Goals: Goals X1 week 1. Supine-Sit independent MET 2. Sit-Supine independent MET 3. Sit-Stand independent NOT MET 4. Stand-Sit independent with SPC NOT MET 5. Bed-Chair independent with SPC NOT MET 6. Chair-Bed independent with SPC NOT MET 7. Independent gait on level surface with use of SPC for at least 500 feet without report of pain nor dyspnea NOT MET 8. Independent stair negotiation while holding onto 1 rails for at least 5 steps without report of pain nor dyspnea NOT MET 9. Independent with home exercise program NOT MET 10. Good static and dynamic standing balance/tolerance NOT MET Plan of Care/Treatment Plan: 1-2x/day, 7 days/week x 1 week. Plan of care has been reviewed with the HVAC MECHANIC providing the service under Physical Therapy direction. Initiate Physical Therapy intervention for pain management as needed, strengthening, bed mobility, transfers, gait, stairs, balance training, and use of assistive device. DISCHARGE RECOMMENDATIONS: [] ? Home with no services [] [X] ? Home with services.? Patient will benefit from home health PT services in order to progress mobility level using least restrictive assistive ambulatory device, assess home safety, identify additional equipment needs, and establish a functional maintenance program that will increase ability of patient to remain at home. [] ? Home with outpatient PT [] [] ? SNF for continued rehabilitation [] [] ? [facility] [employer] [facility] [] [] ? SNF versus LTC based on ability to participate and progress [] TREATMENT CODE/TIME: ID Thank you for the opportunity to participate in the care of this patient. Mounika Lund PT, DPT, CLT [facility] [place], [place]
== END 2022-07-11 16:08 | disposition home or self-care (01) | DRG 896 ==
LOC: ER 23:22 → MS 07-05 00:26
PROVIDERS: Internal Medicine; Nurse Practitioner Family; Surgery; Admitting Provider Internal Medicine; Emergency Provider Physician Assistant; PCP Family Medicine; Visit Provider Internal Medicine
DX: F10.229 Alcohol dependence with intoxication, unspecified (principal); K85.20 Alcohol induced acute pancreatitis without necrosis or infection; F11.20 Opioid dependence, uncomplicated; F10.239 Alcohol dependence with withdrawal, unspecified; Y90.6 Blood alcohol level of 120-199 mg/100 ml; I10 Essential (primary) hypertension; K21.9 Gastro-esophageal reflux disease without esophagitis; F90.9 Attention-deficit hyperactivity disorder, unspecified type; F32.A Depression, unspecified; I83.93 Asymptomatic varicose veins of bilateral lower extremities; M54.50 Low back pain, unspecified; K75.9 Inflammatory liver disease, unspecified; K29.40 Chronic atrophic gastritis without bleeding; E55.9 Vitamin D deficiency, unspecified; D63.8 Anemia in other chronic diseases classified elsewhere; E11.9 Type 2 diabetes mellitus without complications; F17.210 Nicotine dependence, cigarettes, uncomplicated; M10.9 Gout, unspecified; I45.9 Conduction disorder, unspecified; K80.20 Calculus of gallbladder without cholecystitis without obstruction; E87.6 Hypokalemia; K82.8 Other specified diseases of gallbladder; R33.9 Retention of urine, unspecified; M25.512 Pain in left shoulder
CPT/HCPCS: 36415; 80048; 80053; 80061; 80076; 80307; 82805; 83690; 87635; 90686; 93005; 96365; 96366; 96367; 96368; 96375; 96376; 97162; 97530; 99221; 99231; 99232; 99285; J1650; 70450; 73030; 73060; 74177; 74181; 76705; 80320; 81003; 81015; 82140; 82607; 82746; 83036; 83735; 84484; 85025; 86140; 93010; 99223; 99233; 99239; J0131; J1170; J2060; J3475; J3480; J3490

== ENCOUNTER 2022-09-14 00:24 | Outpatient (CLI) | payer MEDICARE, MEDICAID, SELFPAY ==
--- OUTSIDE RECORDS SUMMARY | 2022-09-07 12:01 | XMS_ITS | Continuity of Care Document ---
:1960 Author Organization [facility] Address [address] [place] [address] Care Team Providers Name Role Phone Rafi Macedo Primary Care Physician [facility] 07/19/22 - 07/19/[address] [address] Encounter Diagnosis Cocaine use (Discharge Diagnosis) - 07/19/22 Cocaine use, unspecified, uncomplicated (Final) - Chest pain, unspecified (Final) - Other chcf (current) drug therapy (Final) - Discharge Disposition: Home or Self Care Attending Physician: Florin Hammer MD Admitting Physician: Florin Hammer MD Allergies, Adverse Reactions, Alerts No Known Medication Allergies Assessment and Plan Extracted from: Title: Clinical Document Author: Gita Mo Date: 07/19/22 Diagnosis: 1. Cocaine use Comment: Diagnosis: Chest pain Comment: Functional Status 07/19/22 Family Member Travel History No recent travel Recent Travel History No recent travel Other exposure to Infectious Disease None Immunizations Given and Recorded Vaccine Date Status Refusal Reason tetanus/diphth/pertuss (Tdap) adult/adol1 07/18/22 Given tetanus/diphth/pertuss (Tdap) adult/adol 06/14/20 Recorde d tetanus/diphth/pertuss (Tdap) adult/adol 03/02/13 Recorde d SARS-CoV-2 (COVID-19) mRNA BNT-162b2 vax 03/17/21 Recorde d SARS-CoV-2 (COVID-19) mRNA BNT-162b2 vax 02/28/21 Recorde d influenza virus vaccine, live 07/27/19 Recorded influenza virus vaccine, live 08/22/18 Recorded influenza virus vaccine, inactivated 07/29/17 Recorded influenza virus vaccine, inactivated 10/05/16 Recorded influenza virus vaccine, inactivated 06/25/15 Recorded influenza virus vaccine, inactivated 07/28/14 Recorded influenza virus vaccine, inactivated 07/09/13 Recorded influenza virus vaccine, inactivated 09/18/12 Recorded influenza virus vaccine, inactivated 08/09/11 Recorded influenza virus vaccine, inactivated 09/09/09 Recorded pneumococcal 23-polyvalent vaccine 08/23/10 Recorded Novel [id number], all formulation 09/27/09 Recorde d 1Early/Late Reason: Early/Late Reason: Back-charting an earlier dose Medications gabapentin 300 mg oral capsule 300 mg =, Oral, Daily, cap, 0 Refill(s) Start Date: 07/19/22 Status: OrderedLyrica 300 mg oral capsule 300 mg = 1 cap, Oral, BID, # 60 cap, 0 Refill(s) Start Date: 07/19/22 Status: Ordered Results Laboratory List Name Date Lipase Level 07/19/22 Drug Screen Urine 07/19/22 D-Dimer 07/19/22 CBC w/o Diff (CBC) 07/19/22 Comprehensive Metabolic Panel (CMP) 07/19/22 Troponin-I 07/19/22 Most recent to oldest [Reference Range]: 1 WBC [5.0-10.0 x10^3/mcL] 8.6 x10^3/mcL (07/19/22 9:22 AM) RBC [4.6-6.0 x10^6/mcL] 4.4 x10^6/mcL *LOW* (07/19/22 9:22 AM) BUN [7-18 mg/dL] 12 mg/dL (07/19/22 9:22 AM) U Amph Scrn [Negative] Negative (07/19/22 9:59 AM) Glucose Level [74-106 mg/dL] 138 mg/dL *HI* (07/19/22 9:22 AM) Potassium Level [3.5-5.1 mmol/L] 3.3 mmol/L *LOW* (07/19/22 9:22 AM) U Benzodia Scrn [Negative] Positive *ABN* (07/19/22 9:59 AM) MCV [80.0-96.0] 95.0 (11/10/22 9:22 AM) AST [15-37 unit/L] 28 unit/L (07/19/22 AM) ALT [16-63 unit/L] 25 unit/L (07/19/22 AM) MCHC [31.0-35.0 g/dL] 35.3 g/dL *HI* (07/19/22 AM) Troponin-I [0.0-76.2 pg/mL] 14.3 pg/mL (07/19/22) Sodium Level [136-145 mmol/L] 137 mmol/L (07/19/22 AM) Hct [41.0-51.0 %] 41.9 % (07/19/22) Lipase Level [16-77 unit/L] 159 unit/L *HI* (07/19/22 AM) U Cocaine Scrn [Negative] Positive *ABN* (07/19/22) Calcium Level [8.5-10.1 mg/dL] 9.3 mg/dL (07/19/22 AM) Albumin Level [3.4-5.0 g/dL] 4.0 g/dL (07/19/22 AM) Protein Total [6.4-8.2 g/dL] 8.2 g/dL (07/19/22 AM) MCH [26.0-32.0 pg] 33.6 pg *HI* (07/19/22) Bilirubin Total [0.2-1.0 mg/dL] 1.1 mg/dL *HI* (07/19/22) Hgb [14.0-18.0 g/dL] 14.8 g/dL (07/19/22 AM) Alk Phos [46-146 unit/L] 129 unit/L (07/19/22 AM) Platelets [130-450 x10^3/mcL] 325 x10^3/mcL (07/19/22 AM) CO2 [21-32 mmol/L] 26 mmol/L (07/19/22 AM) U Violette Scrn [Negative] Negative (11/10/22 9:59 AM) U Opiate Scrn [Negative] Negative (07/19/22 9:59 AM) eGFR Non-AA [>=60] 96 (07/19/22:22 AM) eGFR AA [>=60] 96 (07/19/22:22 AM) Chloride Level [98-107 mmol/L] 101 mmol/L (07/19/22:22 AM) U Oxy Scrn [Negative] Negative (07/19/22 9:59 AM) U PCP Scrn [Negative] Negative (07/19/22 9:59 AM) RDW-CV [11.5-17.0 %] 12.8 % (07/19/22:22 AM) U THC Scr [Negative] Negative (07/19/22 9:59 AM) U PPX Scr [Negative] Negative (07/19/22 9:59 AM) U Methadone Scr [Negative] Negative (07/19/22 9:59 AM) U Buprenorph Scr [Negative] Negative (07/19/22 9:59 AM) U mAMP Scr [Negative] Negative (07/19/22 9:59 AM) U TCA Scr [Negative] Negative (07/19/22 9:59 AM) Creatinine Level [0.70-1.30 mg/dL] 0.91 mg/dL (07/19/22:22 AM) D Dimer, (Quant.) [0.00-0.50 mg/L] 1.22 mg/L *HI* (07/19/22 9:39 AM) Vital Signs Most recent to oldest [Reference Range]: 1 2 Temperature Temporal Artery [36-38 Deg C] 36.4 Deg C (07/19/22 9:12 AM) Peripheral Pulse Rate [60-100 bpm] 97 bpm (07/19/22 9:12 AM) Respiratory Rate [12-24 br/min] 22 br/min (07/19/22 9:12 AM) Blood Pressure [90-140/60-90 mmHg] 151/98 mmHg 146/9 7 mmHg *HI* *HI* (07/19/22 10:12 AM) (07/19/22 10:11 AM) Blood Pressure Location Right arm Left arm (07/19/22 10:12 AM) (07/19/22 10:11 AM) Blood Pressure Method Automatic Automatic (07/19/22 10:12 AM) (07/19/22 10:11 AM) Weight Dosing 65.00 kg (07/19/22 10:00 AM) Weight Estimated 65.00 kg (07/19/22 9:12 AM) Height/Length Dosing 168.000 cm (07/19/22 10:00 AM) Height/Length Estimated 168.000 cm (07/19/22 9:12 AM) Social History Social History Type Response Tobacco Current everyday tobacco use r Tobacco Use:. Sex Male Physician Emergency department Note Florin Hammer MD: PERFORM Event Display: ED Note Physician Authored Date: [id number] NIKKI ESQUIVEL :1960 Age:61 years Sex:Male Visit Date:07/19/2022 Primary Care Physician: Rafi Macedo Basic Information Time Seen: Florin Hammer MD / 07/19/2022 09:18 Chief Complaint chest pain, similar to yesterday seen in the ER dx galbladder disease, substance use History Of Present Illness: chest pain, brought by ems, missed appt at [facility], took crack, complains of chest pain??okay??thank Review of Systems: neg fever, + sob, - abd pain, - vomit, - gu sxs, - halluc Physical Exam Vitals & Measurements T:??36.4?C ??(Temporal Artery)?? HR:??97??(Peripheral)?? RR:??22?? BP:??151/98?? SpO2:??97%?? HT:??168.000??cm?? WT:??65.00??kg??(Estimated)?? Pain Score:??5?? disoriented to time; tangetial thinking, pressured sppech; nad, resp nl, heart nl,VARIABLE TENDERNESS over body - chest - abd - legs. strength is symmetric, Abdomen is nonobese, generally tender.?? Patient has verbal agitation. Medical Decision Making: Patient is in a cocaine stimulated state??which makes it impossible to??accurately address any symptoms??and take a??reliable physical exam.?? Patient variably hyper reacts to palpation of any part inhis body. Procedure No Qualifying Data Reexamination/Reevaluation Patient talking??loudly and??profanely to telephone. ??Not clear whether person is on the telephone. Assessment/Plan 1.??Cocaine use??F14.90 Ordered: Discharge Patient, 07/19/22 12:06:00 EST, Home Independently, Constant Indicator ?? Orders: CV EKG ED, 07/19/22 9:19:00 EST, Routine, Reason: Chest Pain, Stop date and time 07/19/22 9:19:00 EST, ORD_SET_REQ_DT_RANGE, Jonathan's Internal Person Id Nursing Care, 07/19/22 9:27:00 EST, Stop date 07/19/22 9:27:00 EST, plese measure bp in both arms Nursing Care, 07/19/22 10:05:00 EST, Stop date 07/19/22 10:05:00 EST, Please measure blood pressures in both arms Peripheral IV Insertion, 07/19/22 9:19:00 EST Problem List/Past Medical History Ongoing No qualifying data Historical No qualifying data Allergies No Known Medication Allergies Social History Electronic Cigarette/Vaping Electronic Cigarette Use: Never. Tobacco Current everyday tobacco user Tobacco Use:. Lab Results CBC and Differential?? LATEST RESULTS?? HISTORICAL RESULTS?? WBC?? 07/19/22 09:22?? 8.6?? 07/18/22?? 8.4?? RBC?? 07/19/22 09:22?? 4.4 ??Low?? 07/18/22?? 4.2 ??Low?? Hgb?? 07/19/22 09:22?? 14.8?? 07/18/22?? 13.6 ??Low?? Hct?? 07/19/22 09:22?? 41.9?? 07/18/22?? 40.6 ??Low?? MCV?? 07/19/22 09:22?? 95.0?? 07/18/22?? 97.6 ??High?? MCH?? 07/19/22 09:22?? 33.6 ??High?? 07/18/22?? 32.7 ??High?? MCHC?? 07/19/22 09:22?? 35.3 ??High?? 07/18/22?? 33.5?? RDW-CV?? 07/19/22 09:22?? 12.8?? 07/18/22?? 12.9?? Platelets?? 07/19/22 09:22?? 325?? 07/18/22?? 273? Coagulation?? LATEST RESULTS?? D Dimer, (Quant.)?? 07/19/22 09:39?? 1.22 ??High? Routine Chemistry?? LATEST RESULTS?? HISTORICAL RESULTS?? Sodium Level?? 07/19/22 09:22?? 137?? 07/18/22?? 141?? Potassium Level?? 07/19/22 09:22?? 3.3 ??Low?? 07/18/22?? 3.6?? Chloride Level?? 07/19/22 09:22?? 101?? 07/18/22?? 103?? CO2?? 07/19/22 09:22?? 26?? 07/18/22?? 27?? Alk Phos?? 07/19/22 09:22?? 129?? 07/18/22?? 113?? AST?? 07/19/22 09:22?? 28?? 07/18/22?? 32?? ALT?? 07/19/22 09:22?? 25?? 07/18/22?? 27?? BUN?? 07/19/22 09:22?? 12?? 07/18/22?? 10?? Glucose Level?? 07/19/22 09:22?? 138 ??High?? 07/18/22?? 116 ??High?? Creatinine Level?? 07/19/22 09:22?? 0.91?? 07/18/22?? 0.78?? eGFR AA?? 07/19/22 09:22?? 96?? 07/18/22?? 101?? eGFR Non-AA?? 07/19/22 09:22?? 96?? 07/18/22?? 101?? Calcium Level?? 07/19/22 09:22?? 9.3?? 07/18/22?? 8.9?? Protein Total?? 07/19/22 09:22?? 8.2?? 07/18/22?? 7.4?? Albumin Level?? 07/19/22 09:22?? 4.0?? 07/18/22?? 3.6?? Bilirubin Total?? 07/19/22 09:22?? 1.1 ??High?? 07/18/22?? 0.9?? Lipase Level?? 07/19/22 10:27?? 159 ??High?? 07/18/22?? 127 ??High? Cardiac Isoenzymes?? LATEST RESULTS?? HISTORICAL RESULTS?? Troponin-I?? 07/19/22 09:22?? 14.3?? 07/18/22?? 19.1? Urine Toxicology?? LATEST RESULTS?? HISTORICAL RESULTS?? U Amph Scrn?? 07/19/22 09:59?? Negative?? 07/18/22?? Negative?? U Violette Scrn?? 07/19/22 09:59?? Negative?? 07/18/22?? Negative?? U Benzodia Scrn?? 07/19/22 09:59?? Positive Abnormal?? 07/18/22?? Positive Abnormal?? U Buprenorph Scr?? 07/19/22 09:59?? Negative?? 07/18/22?? Negative?? U Cocaine Scrn?? 07/19/22 09:59?? Positive Abnormal?? 07/18/22?? Positive Abnormal?? U TCA Scr?? 07/19/22 09:59?? Negative?? 07/18/22?? Negative?? U THC Scr?? 07/19/22 09:59?? Negative?? 07/18/22?? Positive Abnormal?? U mAMP Scr?? 07/19/22 09:59?? Negative?? 07/18/22?? Negative?? U Methadone Scr?? 07/19/22 09:59?? Negative?? 07/18/22?? Positive Abnormal?? U Opiate Scrn?? 07/19/22 09:59?? Negative?? 07/18/22?? Negative?? U Oxy Scrn?? 07/19/22 09:59?? Negative?? 07/18/22?? Negative?? U PCP Scrn?? 07/19/22 09:59?? Negative?? 07/18/22?? Negative?? U PPX Scr?? 07/19/22 09:59?? Negative?? 07/18/22?? Negative? Electronically Signed on 07/19/22 12:07 PM Florin Hammer MD Emergency department Discharge instructions Florin Hammer MD: PERFORM Event Display: ED Discharge Information Authored Date: [id number] NIKKI ESQUIVEL :1960 Age:61 years Sex:Male Visit Date:07/19/2022 Primary Care Physician: Rafi Macedo Discharge Instructions We would like to thank you for allowing us to assist you with your healthcare needs. The following includes patient education materials and information regarding your injury/illness. Diagnosis from Today's Visit Cocaine use Discharge Vitals Temperature??(Temporal Artery) 97.5 ??F (36.4 ??C) Heart Rate??(Peripheral) 97 Respiratory Rate?? 22 Blood Pressure?? 151/98?? Height?? 66.14 in (168.000 cm) Weight??(Estimated) 143.33 lb (65.00 kg) Allergies No Known Medication Allergies You were treated today on an emergency basis; it may be gomez to contact your primary care provider to notify them of your visit today. You may have been referred to your regular doctor or a specialist,please follow up as instructed. If your condition worsens or you can't get in to see the doctor, contact the Emergency Department. Tests Performed Lab Test Name Test Result Date/Time WBC 8.6 x10^3/mcL 07/19/2022 09:22 EST RBC 4.4 x10^6/mcL 07/19/2022 09:22 EST Hgb 14.8 g/dL 07/19/2022 09:22 EST Hct 41.9 % 07/19/2022 09:22 EST MCV 95.0 07/19/2022 09:22 EST MCH 33.6 pg 07/19/2022 09:22 EST MCHC 35.3 g/dL 07/19/2022 09:22 EST RDW-CV 12.8 % 07/19/2022 09:22 EST Platelets 325 x10^3/mcL 07/19/2022 09:22 EST D Dimer, (Quant.) 1.22 mg/L 07/19/2022 09:39 EST Sodium Level 137 mmol/L 07/19/2022 09:22 EST Potassium Level 3.3 mmol/L 07/19/2022 09:22 EST Chloride Level 101 mmol/L 07/19/2022 09:22 EST CO2 26 mmol/L 07/19/2022 09:22 EST Alk Phos 129 unit/L 07/19/2022 09:22 EST AST 28 unit/L 07/19/2022 09:22 EST ALT 25 unit/L 07/19/2022 09:22 EST BUN 12 mg/dL 07/19/2022 09:22 EST Glucose Level 138 mg/dL 07/19/2022 09:22 EST Creatinine Level 0.91 mg/dL 07/19/2022 09:22 EST eGFR AA 96 07/19/2022 09:22 EST eGFR Non-AA 96 07/19/2022 09:22 EST Calcium Level 9.3 mg/dL 07/19/2022 09:22 EST Protein Total 8.2 g/dL 07/19/2022 09:22 EST Albumin Level 4.0 g/dL 07/19/2022 09:22 EST Bilirubin Total 1.1 mg/dL 07/19/2022 09:22 EST Lipase Level 159 unit/L 07/19/2022 10:27 EST Troponin-I 14.3 pg/mL 07/19/2022 09:22 EST U Amph Scrn NEGATIVE 07/19/2022 09:59 EST U Violette Scrn NEGATIVE 07/19/2022 09:59 EST U Benzodia Scrn POSITIVE 07/19/2022 09:59 EST U Buprenorph Scr NEGATIVE 07/19/2022 09:59 EST U Cocaine Scrn POSITIVE 07/19/2022 09:59 EST U TCA Scr NEGATIVE 07/19/2022 09:59 EST U THC Scr NEGATIVE 07/19/2022 09:59 EST U mAMP Scr NEGATIVE 07/19/2022 09:59 EST U Methadone Scr NEGATIVE 07/19/2022 09:59 EST U Opiate Scrn NEGATIVE 07/19/2022 09:59 EST U Oxy Scrn NEGATIVE 07/19/2022 09:59 EST U PCP Scrn NEGATIVE 07/19/2022 09:59 EST U PPX Scr NEGATIVE 07/19/2022 09:59 EST 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 Discharge summary Gita Mo: PERFORM Event Display: Discharge Note Authored Date: Gita Mo: PERFORM Event Display: Discharge Note Authored Date: Diagnosis: 1. Cocaine use Comment: Diagnosis: Chest pain Comment: Electronically Signed on 07/19/22 12:20 PM Gita Mo Patient Care team information Care Team PersonnelName: Rafi Macedo Position: No Access Member Role: Primary Care Physician Address: Address: [facility] [address] [place] [id number] Name: Azalia Saleh Position: Nurse Member Role: ED Nurse Name: Florin Hammer MD Position: Physician Member Role: Attending Physician Address: Address: [address] [place] [id number] Care Team Related PersonsName: ANA MARIA JASON
--- OUTSIDE RECORDS SUMMARY | 2022-09-07 12:01 | XMS_ITS | Continuity of Care Document ---
:1960 Author Organization [facility] Address [address] [place] [address] Care Team Providers Name Role Phone Rafi Macedo Primary Care Physician Encounter [facility] Date(s): 07/13/22 - 07/13/22 [facility] [address] [place] [address] Discharge Disposition: Left Against Medical Advice Attending Physician: Kristen Brady MD Admitting Physician: Kristen Brady MD Allergies, Adverse Reactions, Alerts No Known Medication Allergies Immunizations Given and Recorded Vaccine Date Status Refusal Reason SARS-CoV-2 (COVID-19) mRNA BNT-162b2 vax 03/17/21 Recorde d SARS-CoV-2 (COVID-19) mRNA BNT-162b2 vax 02/28/21 Recorde d tetanus/diphth/pertuss (Tdap) adult/adol 06/14/20 Recorde d tetanus/diphth/pertuss (Tdap) adult/adol 03/02/13 Recorde d influenza virus vaccine, live 07/27/19 [...] Recorded pneumococcal 23-polyvalent vaccine 08/23/10 Recorded Novel [id number], all formulation 09/27/09 Recorde d Medications No Known Medications Vital Signs Most recent to oldest [Reference Range]: 1 Weight Dosing 170.18 kg (07/13/22 11:18 AM) Weight Estimated 170.18 kg (07/13/22 11:06 AM) Height/Length Dosing 65.770 cm (07/13/22 11:18 AM) Height/Length Estimated 65.770 cm (07/13/22 11:06 AM) Social History Social History Type Response Tobacco Current everyday tobacco use r Tobacco Use:. Sex Male Patient Care team information PersonnelName: Rafi Macedo Address: Address: [facility] [address] [place] [id number] [place] [address]
--- OUTSIDE RECORDS SUMMARY | 2022-09-07 12:01 | XMS_ITS | Continuity of Care Document ---
:[address] [facility] Address [address] [place] [address] Care Team Providers Name Role Phone Rafi Macedo Primary Care Physician Encounter [facility] Date(s): 07/18/22 - 07/18/[address] [id number] Encounter Diagnosis Cocaine use (Discharge Diagnosis) - 07/18/22 Alcohol use (Discharge Diagnosis) - 07/18/22 Chronic cholecystitis with calculus (Discharge Diagnosis) - 07/18/22 Cocaine use, unspecified, uncomplicated (Final) - Alcohol use, unspecified, uncomplicated (Final) - Calculus of gallbladder without cholecystitis without obstruction (Final) - Discharge Disposition: Home or Self Care Attending Physician: Kirk Johnston MD Admitting Physician: Kirk Johnston MD Allergies, Adverse Reactions, Alerts No Known Medication Allergies Assessment and Plan Diagnostic Tests PendingUrine Culture 07/18/22 Functional Status 07/18/22 Family Member Travel History No recent travel [...] Recorded pneumococcal 23-polyvalent vaccine 08/23/10 Recorded Novel [id number], all formulation 09/27/09 Recorde d 1Early/Late Reason: Early/Late Reason: Back-charting an earlier dose Results Laboratory List Name Date Drug Screen Urine 07/18/22 Urinalysis with Micro if Indicated and Culture if Simona cated 07/18/22 Urinalysis Microscopic 07/18/22 .Manual Differential ([facility]CT[facility]) 07/18/22 Acetaminophen Level 07/18/22 Alcohol Level 07/18/22 Blood Gas Venous 07/18/22 CBC w/ Diff 07/18/22 Comprehensive Metabolic Panel (CMP) 07/18/22 Lactic Acid 07/18/22 Lipase Level 07/18/22 Magnesium Level 07/18/22 Salicylate Level 07/18/22 Troponin-I 07/18/22 Most recent to oldest [Reference Range]: 1 WBC [5.0-10.0 x10^3/mcL] 8.4 x10^3/mcL (07/18/22 7:30 AM) RBC [4.6-6.0 x10^6/mcL] 4.2 x10^6/mcL *LOW* (07/18/22 7:30 AM) Segs Man [40-75 %] 90 % *HI* (07/18/22 7:30 AM) Lymph Man [20-50 %] 7 % *LOW* (07/18/22 7:30 AM) [place] Man 2 % *NA* (07/18/22 7:30 AM) Eos Man 1 % *NA* (07/18/22 7:30 AM) BUN [7-18 mg/dL] 10 mg/dL (07/18/22 7:30 AM) U Amph Scrn [Negative] Negative (07/18/22 8:20 AM) UA Color Pale Yellow (07/18/22 8:20 AM) UA WBC [0-3] 0-3 (07/18/22 8: AM) Glucose Level [74-106 mg/dL] 116 mg/dL *HI* (07/18/22:30 AM) Potassium Level [3.5-5.1 mmol/L] 3.6 mmol/L (07/18/22 7:30 AM) U Benzodia Scrn [Negative] Positive *ABN* (07/18/22 AM) MCV [80.0-96.0] 97.6 *HI* (07/18/22:30 AM) UA Urobilinogen Normal (07/18/22 AM) RBC Morph Normal (07/18/22 AM) UA Bili [Negative] Negative (07/18/22 AM) CO2 Total Venous 29 mmol/L *NA* (07/18/22 AM) UA Ketones 1+ *ABN* (07/18/22 AM) HCO3 Venous [19-25 mEq/L] 28 mEq/L *HI* (07/18/22 7:30 AM) AST [15-37 unit/L] 32 unit/L (07/18/2230 AM) ALT [16-63 unit/L] 27 unit/L (07/18/2230 AM) MCHC [31.0-35.0 g/dL] 33.5 g/dL (07/18/22:30 AM) Troponin-I [0.0-76.2 pg/mL] 19.1 pg/mL (07/18/22:30 AM) Sodium Level [136-145 mmol/L] 141 mmol/L (07/18/22 7:30 AM) UA RBC [0-2] 0-2 (07/18/22: AM) UA Leuk Est Negative (07/18/22 AM) UA Nitrite Negative (07/18/22 AM) UA Glucose [Negative] Negative (07/18/22 AM) Hct [41.0-51.0 %] 40.6 % *LOW* (07/18/2230 AM) UA Bacteria Few /HPF *ABN* (07/18/22:20 AM) Lipase Level [16-77 unit/L] 127 unit/L *HI* (07/18/22:30 AM) U Cocaine Scrn [Negative] Positive *ABN* (07/18/22 8:20 AM) Calcium Level [8.5-10.1 mg/dL] 8.9 mg/dL (07/18/22 7:30 AM) Albumin Level [3.4-5.0 g/dL] 3.6 g/dL (07/18/22:30 AM) Protein Total [6.4-8.2 g/dL] 7.4 g/dL (07/18/22 7:30 AM) UA Protein Negative (07/18/22 AM) MCH [26.0-32.0 pg] 32.7 pg *HI* (07/18/22 AM) Magnesium Level [1.8-2.4 mg/dL] 2.0 mg/dL (07/18/2230 AM) Bilirubin Total [0.2-1.0 mg/dL] 0.9 mg/dL (07/18/22:30 AM) Hgb [14.0-18.0 g/dL] 13.6 g/dL *LOW* (07/18/22 AM) Alk Phos [46-146 unit/L] 113 unit/L (07/18/22:30 AM) UA Blood Negative (07/18/22 8: AM) pCO2 Parrish [33-47 mmHg] 41 mmHg (07/18/22:30 AM) Salicylate Level [2.8-20.0 mg/dL] 1.1 mg/dL *LOW* (07/18/2230 AM) Ethanol Level [0-10 mg/dL] <5 mg/dL (07/18/22 7:30 AM) UA Mucous Few /HPF *ABN* (07/18/22 AM) Band Man [0-5 %] 0 % (07/18/22:30 AM) UA Spec Grav 1.015 *NA* (07/18/22 8:20 AM) Platelets [130-450 x10^3/mcL] 273 x10^3/mcL (07/18/22 7:30 AM) CO2 [21-32 mmol/L] 27 mmol/L (07/18/22 7:30 AM) U [place]te Scrn [Negative] Negative (07/18/22 8:20 AM) Lactic Acid Lvl [0.7-2.1 mmol/L] 0.9 mmol/L (07/18/22 7:30 AM) UA Squam Epithelial [None Seen] Rare (07/18/22 8:20 AM) pO2 Parrish 38 mmHg *NA* (07/18/22 7:30 AM) UA pH 7.5 *NA* (07/18/22 8:20 AM) pH Parrish 7.43 pH unit(s) *NA* (07/18/22 7:30 AM) U Opiate Scrn [Negative] Negative (07/18/22 8:20 AM) O2 Sat [place] 74 % *NA* (07/18/22 7:30 AM) eGFR Non-AA [>=60] 101 (07/18/22 7:30 AM) eGFR AA [>=60] 101 (07/18/22 7:30 AM) Base Excess Venous 2.9 mmol/L *NA* (07/18/22 7:30 AM) UA Appear Hazy *ABN* (07/18/22 8:20 AM) Acetaminophen Level [10-20 ug/mL] <10 ug/mL *LOW* (07/18/22 7:30 AM) Chloride Level [98-107 mmol/L] 103 mmol/L (07/18/22 7:30 AM) U Oxy Scrn [Negative] Negative (07/18/22 8:20 AM) U PCP Scrn [Negative] Negative (07/18/22 8:20 AM) RDW-CV [11.5-17.0 %] 12.9 % (07/18/22 7:30 AM) U THC Scr [Negative] Positive *ABN* (07/18/22 8:20 AM) U PPX Scr [Negative] Negative (07/18/22 8:20 AM) U Methadone Scr [Negative] Positive *ABN* (07/18/22 8:20 AM) UA Culture Ind?. Indicated (07/18/22 8:20 AM) U Buprenorph Scr [Negative] Negative (07/18/22 8:20 AM) U mAMP Scr [Negative] Negative (07/18/22 8:20 AM) U TCA Scr [Negative] Negative (07/18/22 8:20 AM) UA Amorph Moderate /HPF (07/18/22 8:20 AM) Abs Neut Man 7.6 x10^3/mcL *NA* (07/18/22 7:30 AM) Creatinine Level [0.70-1.30 mg/dL] 0.78 mg/dL (07/18/22 7:30 AM) Baso Man [0-1 %] 0 % (07/18/22 7:30 AM) Vital Signs Most recent to oldest 1 2 3 [Reference Range]: Temperature Temporal Artery 36.8 Deg C 36.5 Deg C [36-38 Deg C] (07/18/22 12:54 PM) (07/18/22 5:47 AM) Apical Heart Rate [60-100 bpm] 85 bpm 85 bpm (07/18/22 12:54 PM) (07/18/22 9:27 AM) Peripheral Pulse Rate [60-100 86 bpm bpm] (07/18/22 5:47 AM) Respiratory Rate [12-24 20 br/min 16 br/min 14 br/mi n br/min] (07/18/22 12:54 PM) (07/18/22 9:27 AM) (07/18/22 5: 47 AM) Blood Pressure [90-140/60-90 164/93 mmHg 130/92 mmHg 150 /91 mmHg mmHg] *HI* (07/18/22 9:27 AM) *HI* (07/18/22 12:54 PM) (07/18/22:47 AM) Mean Arterial Pressure Cuff 115 mmHg (07/18/22 12:54 PM) Weight Dosing 65.00 kg (07/18/22 5:55 AM) Weight Estimated 65.00 kg (07/18/22 5:47 AM) Height/Length Dosing 170.000 cm (07/18/22 5:55 AM) Height/Length Estimated 170.000 cm (07/18/22 5:47 AM) Social History Social History Type Response Tobacco Current everyday tobacco use r Tobacco Use:. Sex Male Hospital Discharge Instructions Patient Oksruouem90/09/2022 14:16:24CholelithiasisCholelithiasis Cholelithiasis is a disease in which gallstones form in the gallbladder. The gallbladder is an organthat stores bile. Bile is a fluid that helps to digest fats. Gallstones begin as small crystals and can slowly grow into stones. They may cause no symptoms until they block the gallbladder duct, or cystic duct, when the gallbladder tightens (contracts) after food is eaten. This can cause pain and is known as a gallbladder attack, or biliary colic. There are two main types of gallstones: ??? Cholesterol stones. These are the most common type of gallstone. These stones are made of hardened cholesterol and are usually yellow-green in color. Cholesterol is a fat-like substance that is made in the liver. ??? Pigment stones. These are dark in color and are made of a red-yellow substance, called bilirubin,that forms when hemoglobin from red blood cells breaks down. What are the causes? This condition may be caused by an imbalance in the different parts that make bile. This can happen if the bile: ??? Has too much bilirubin. This can happen in certain blood diseases, such as sickle cell anemia. ??? Has too much cholesterol. ??? Does not have enough bile salts. These salts help the body absorb and digest fats. In some cases, this condition can also be caused by the gallbladder not emptying completely or oftenenough. This is common during . What increases the risk? The following factors may make you more likely to develop this condition: ??? Being female. ??? Having multiple pregnancies. Health care providers sometimes advise removing diseased gallbladders before future pregnancies. ??? Eating a diet that is heavy in fried foods, fat, and refined carbohydrates, such as white bread and white rice. ??? Being obese. ??? Being older than age 40. ??? Using medicines that contain female hormones (estrogen) for a long time. ??? Losing weight quickly. ??? Having a family history of gallstones. ??? Having certain medical problems, such as: ??? Diabetes mellitus. ??? Cystic fibrosis. ??? Crohn's disease. ??? Cirrhosis or other long-term (chronic) liver disease. ??? Certain blood diseases, such as sickle cell anemia or leukemia. What are the signs or symptoms? In many cases, having gallstones causes no symptoms. When you have gallstones but do not have symptoms, you have silent gallstones. If a gallstone blocks your bile duct, it can cause a gallbladder attack. The main symptom of a gallbladder attack is sudden pain in the upper right part of the abdomen. The pain: ??? Usually comes at night or after eating. ??? Can last for one hour or more. ??? Can spread to your right shoulder, back, or chest. ??? Can feel like indigestion. This is discomfort, burning, or fullness in your upper abdomen. If the bile duct is blocked for more than a few hours, it can cause an infection or inflammation of your gallbladder (cholecystitis), liver, or pancreas. This can cause: ??? Nausea or vomiting. ??? Bloating. ??? Pain in your abdomen that lasts for 5 hours or longer. ??? Tenderness in your upper abdomen, often in the upper right section and under your rib cage. ??? Fever or chills. ??? Skin or the white parts of your eyes turning yellow (jaundice). This usually happens when a stone has blocked bile from passing through the common bile duct. ??? Dark urine or light-colored stools. How is this diagnosed? This condition may be diagnosed based on: ??? A physical exam. ??? Your medical history. ??? Ultrasound. ??? CT scan. ??? MRI. You may also have other tests, including: ??? Blood tests to check for signs of an infection or inflammation. ??? Cholescintigraphy, or HIDA scan. This is a scan of your gallbladder and bile ducts (biliary system) using non-harmful radioactive material and special cameras that can see the radioactive material. ??? Endoscopic retrograde cholangiopancreatogram. This involves inserting a small tube with a cameraon the end (endoscope) through your mouth to look at bile ducts and check for blockages. How is this treated? Treatment for this condition depends on the severity of the condition. Silent gallstones do not needtreatment. Treatment may be needed if a blockage causes a gallbladder attack or other symptoms. Treatment may include: ??? Home care, if symptoms are not severe. ??? During a simple gallbladder attack, stop eating and drinking for 12???24 hours (except for waterand clear liquids). This helps to cool down your gallbladder. After 1 or 2 days, you can start to eat a diet of simple or clear foods, such as broths and crackers. ??? You may also need medicines for pain or nausea or both. ??? If you have cholecystitis and an infection, you will need antibiotics. ??? A hospital stay, if needed for pain control or for cholecystitis with severe infection. ??? Cholecystectomy, or surgery to remove your gallbladder. This is the most common treatment if allother treatments have not worked. ??? Medicines to break up gallstones. These are most effective at treating small gallstones. Medicines may be used for up to 6???12 months. ??? Endoscopic retrograde cholangiopancreatogram. A small basket can be attached to the endoscope and used to capture and remove gallstones, mainly those that are in the common bile duct. Follow these instructions at home: Medicines ??? Take [id number] and prescription medicines only as told by your health care provider. ??? If you were prescribed an antibiotic medicine, take it as told by your health care provider. Do not stop taking the antibiotic even if you start to feel better. ??? Ask your health care provider if the medicine prescribed to you requires you to avoid driving orusing machinery. Eating and drinking ??? Drink enough fluid to keep your urine pale yellow. This is important during a gallbladder attack. Water and clear liquids are preferred. ??? Follow a healthy diet. This includes: ??? Reducing fatty foods, such as fried food and foods high in cholesterol. ??? Reducing refined carbohydrates, such as white bread and white rice. ??? Eating more fiber. Aim for foods such as almonds, fruit, and beans. Alcohol use ??? If you drink alcohol: ??? Limit how much you use to: ??? 0???1 drink a day for non women. ??? 0???2 drinks a day for men. ??? Be aware of how much alcohol is in your drink. In the [place] one drink equals one 12 oz bottle ofbeer (355 mL), one 5 oz glass of wine (148 mL), or one 1?? oz glass of hard liquor (44 mL). General instructions ??? Do not use any products that contain nicotine or tobacco, such as cigarettes, e-cigarettes, and chewing tobacco. If you need help quitting, ask your health care provider. ??? Maintain a healthy weight. ??? Keep all follow-up visits as told by your health care provider. These may include consultations with a surgeon or specialist. This is important. Where to find more information ??? National [place] of Diabetes and Digestive and Kidney Diseases: www.niddk.nih.gov Contact a health care provider if: ??? You think you have had a gallbladder attack. ??? You have been diagnosed with silent gallstones and you develop pain in your abdomen or indigestion. ??? You begin to have attacks more often. ??? You have dark urine or light-colored stools. Get help right away if: ??? You have pain from a gallbladder attack that lasts for more than 2 hours. ??? You have pain in your abdomen that lasts for more than 5 hours or is getting worse. ??? You have a fever or chills. ??? You have nausea and vomiting that do not go away. ??? You develop jaundice. Summary ??? Cholelithiasis is a disease in which gallstones form in the gallbladder. ??? This condition may be caused by an imbalance in the different parts that make bile. This can happen if your bile has too much bilirubin or cholesterol, or does not have enough bile salts. ??? Treatment for gallstones depends on the severity of the condition. Silent gallstones do not needtreatment. ??? If gallstones cause a gallbladder attack or other symptoms, treatment usually involves not eating or drinking anything. Treatment may also include pain medicines and antibiotics, and it sometimes includes a hospital stay. ??? Surgery to remove the gallbladder is common if all other treatments have not worked. This information is not intended to replace advice given to you by your health care provider. Make sure you discuss any questions you have with your health care provider. Document Revised: 07/18/2020 Document Reviewed: 07/18/2020 [employer] Patient Education ?? 2021 [employer] Follow Up Care07/18/2022 05:47:41With:Follow up with specialist Address: When:2 to 4 days Comments:Your surgeon at [facility] Physician Emergency department Note Justyn Ch MD: PERFORM, MODIFY Event Display: ED Note Physician Authored Date: [id number] NIKKI ESQUIVEL :1960 Age:61 years Sex:Male Visit Date:07/18/2022 Primary Care Physician: Rafi Macedo ED Supervision/Handoff Note: Patient endorsed to me at shift change by Dr. Johnston pending CT/labs for evaluation of abdominal discomfort. Medical Decision Making: CTs reviewed???CT head is negative and CT abdomen/pelvis does show some pericholecystic fluid/stranding,??consideration of ultrasound and/or MRCP is recommended. ??Lipase is mildly elevated at 150 today.?? UDS is notable for multiple substances. Right upper quadrant ultrasound obtained??and shows cholelithiasis without clear signs of acute cholecystitis. ??Per radiology report this is favored to be more of a chronic process.?? Some biliary ductal dilation is noted. ??On repeat abdominal examinations, no specific epigastric/right upper quadrant tenderness is noted. ??Dr. Pedersen with general surgery has graciously evaluated the patient??and??weare in agreement that given current exam/imaging findings/laboratory findings, this is not a presentacute cholecystitis or choledocholithiasis??and will plan for outpatient management/follow-up. Subsequently, documentation from [facility] for recent admit??was obtained,??at that visit, patient was noted to have lipase of 505, AST/alk phos of 92 and 155 respectively with normal bilirubin.?? No leukocytosis was noted. ??Surgery evaluated the patient on the phone visit, followed serial ultrasounds and were planning for outpatient follow-up. ??Especially given his contextual information, I believe that outpatient is a reasonable sign for follow-up specifically on biliary disease. Patient on repeat evaluation does deny any active suicidal ideation. ??As per Dr. Johnston's note, he is noted to have kill me??cut into his left arm. ??His tetanus has been updated.?? His friend, D, has been contacted via telephone and she does verbalize concern??for patient mentioning suicidal judd ation recently in context of substance abuse. ??Unfortunately we??have not been able to facilitate a??inpatient/dilatation placement for him. ??We will asked mental health to evaluate patient to assistwith further SI risk stratification. has completed eval??- safe for dc from their perspective Vitals & Measurements T:??36.8?C ??(Temporal Artery)?? HR:??85??(Apical)?? RR:??20?? BP:??164/93?? SpO2:??98%?? HT:??170.000??cm?? WT:??65.00??kg??(Estimated)?? O2 Therapy:??Room air?? Procedure No Qualifying Data Lab Results Blood Gases?? LATEST RESULTS?? pH Parrish?? 07/18/22 07:30?? 7.43?? pCO2 Parrish?? 07/18/22 07:30?? 41?? pO2 Parrish?? 07/18/22 07:30?? 38?? HCO3 Venous?? 07/18/22 07:30?? 28 ??High?? O2 Sat Parrish?? 07/18/22 07:30?? 74?? CO2 Total Venous?? 07/18/22 07:30?? 29?? Base Excess Venous?? 07/18/22 07:30?? 2.9? CBC and Differential?? LATEST RESULTS?? WBC?? 07/18/22 07:30?? 8.4?? RBC?? 07/18/22 07:30?? 4.2 ??Low?? Hgb?? 07/18/22 07:30?? 13.6 ??Low?? Hct?? 07/18/22 07:30?? 40.6 ??Low?? MCV?? 07/18/22 07:30?? 97.6 ??High?? MCH?? 07/18/22 07:30?? 32.7 ??High?? MCHC?? 07/18/22 07:30?? 33.5?? RDW-CV?? 07/18/22 07:30?? 12.9?? Platelets?? 07/18/22 07:30?? 273?? Segs Man?? 07/18/22 07:30?? 90 ??High?? Lymph Man?? 07/18/22 07:30?? 7 ??Low?? [place] Man?? 07/18/22 07:30?? 2?? Eos Man?? 07/18/22 07:30?? 1?? Baso Man?? 07/18/22 07:30?? 0?? Band Man?? 07/18/22 07:30?? 0?? Abs Neut Man?? 07/18/22 07:30?? 7.6?? RBC Morph?? 07/18/22 07:30?? Normal? Routine Chemistry?? LATEST RESULTS?? Sodium Level?? 07/18/22 07:30?? 141?? Potassium Level?? 07/18/22 07:30?? 3.6?? Chloride Level?? 07/18/22 07:30?? 103?? CO2?? 07/18/22 07:30?? 27?? Alk Phos?? 07/18/22 07:30?? 113?? AST?? 07/18/22 07:30?? 32?? ALT?? 07/18/22 07:30?? 27?? BUN?? 07/18/22 07:30?? 10?? Glucose Level?? 07/18/22 07:30?? 116 ??High?? Creatinine Level?? 07/18/22 07:30?? 0.78?? eGFR AA?? 07/18/22 07:30?? 101?? eGFR Non-AA?? 07/18/22 07:30?? 101?? Calcium Level?? 07/18/22 07:30?? 8.9?? Protein Total?? 07/18/22 07:30?? 7.4?? Albumin Level?? 07/18/22 07:30?? 3.6?? Bilirubin Total?? 07/18/22 07:30?? 0.9?? Lactic Acid Lvl?? 07/18/22 07:30?? 0.9?? Lipase Level?? 07/18/22 07:30?? 127 ??High?? Magnesium Level?? 07/18/22 07:30?? 2.0? Cardiac Isoenzymes?? LATEST RESULTS?? Troponin-I?? 07/18/22 07:30?? 19.1? Serum Toxicology?? LATEST RESULTS?? Acetaminophen Level?? 07/18/22 07:30?? <10 ??Low?? Salicylate Level?? 07/18/22 07:30?? 1.1 ??Low?? Ethanol Level?? 07/18/22 07:30?? <5? Urine Toxicology?? LATEST RESULTS?? U Amph Scrn?? 07/18/22 08:20?? Negative?? U Violette Scrn?? 07/18/22 08:20?? Negative?? U Benzodia Scrn?? 07/18/22 08:20?? Positive Abnormal?? U Buprenorph Scr?? 07/18/22 08:20?? Negative?? U Cocaine Scrn?? 07/18/22 08:20?? Positive Abnormal?? U TCA Scr?? 07/18/22 08:20?? Negative?? U THC Scr?? 07/18/22 08:20?? Positive Abnormal?? U mAMP Scr?? 07/18/22 08:20?? Negative?? U Methadone Scr?? 07/18/22 08:20?? Positive Abnormal?? U Opiate Scrn?? 07/18/22 08:20?? Negative?? U Oxy Scrn?? 07/18/22 08:20?? Negative?? U PCP Scrn?? 07/18/22 08:20?? Negative?? U PPX Scr?? 07/18/22 08:20?? Negative? UA Macroscopic?? LATEST RESULTS?? UA Color?? 07/18/22 08:20?? Pale Yellow?? UA Appear?? 07/18/22 08:20?? Hazy Abnormal?? UA Glucose?? 07/18/22 08:20?? Negative?? UA Bili?? 07/18/22 08:20?? Negative?? UA Ketones?? 07/18/22 08:20?? 1+ Abnormal?? UA Spec Grav?? 07/18/22 08:20?? 1.015?? UA Blood?? 07/18/22 08:20?? Negative?? UA pH?? 07/18/22 08:20?? 7.5?? UA Protein?? 07/18/22 08:20?? Negative?? UA Urobilinogen?? 07/18/22 08:20?? Normal?? UA Nitrite?? 07/18/22 08:20?? Negative?? UA Leuk Est?? 07/18/22 08:20?? Negative?? UA Culture Ind?.?? 07/18/22 08:20?? Indicated? UA Microscopic?? LATEST RESULTS?? UA WBC?? 07/18/22 08:20?? 0-3?? UA RBC?? 07/18/22 08:20?? 0-2?? UA Squam Epithelial?? 07/18/22 08:20?? Rare?? UA Mucous?? 07/18/22 08:20?? Few Abnormal?? UA Bacteria?? 07/18/22 08:20?? Few Abnormal?? UA Amorph?? 07/18/22 08:20?? Moderate? Assessment/Plan 1.??Cocaine use??F14.90 2.??Alcohol use??Z78.9 Electronically Signed on 07/18/22 03:15 PM Justyn ChKirk thakkar MD: PERFORM Event Display: ED Note Physician Authored Date: [id number] NIKKI ESQUIVEL :1960 Age:61 years Sex:Male Visit Date:07/18/2022 Primary Care Physician: Rafi Macedo Basic Information Time Seen: Justyn Ch MD / 07/18/2022 07:08 Chief Complaint Pt. presents via EMS with reports of abdominal pain. Pt. indicates issues with pancreas as well as a number of other chronic medical issues. Pt. indicates that he has an upcoming appointment at [facility]. History Of Present Illness: 61 y/o male??past with history of polysubstance abuse, depression,??ADHD, hypertension, nicotine dependence, obesity presents??with multiple complaints. ??Patient states that he has a history of drug use??and has been on methadone for many years but occasionally relapses. ??He reports that he has been drinking more??frequently, up to 12 twisted teas a day,??and when he gets drunk he ends up using cocaine, states that he used earlier today. ??He usually goes to the methadone clinic at [facility]??and wasat [facility] to get a ride over there this morning but ended up getting brought in by EMS.?? Unable to specifically state why he is brought in by EMS. ??He does have??a self-inflicted wound to his left forearm she states was done because??he states the only one in his life is the??woman who??drives him in order [place]??and??when he relapsed he thought that she would get mad at her.?? He is denying any outrightsuicidal thoughts at this time.?? Complaining of chest pain, diffuse abdominal pain,??nausea,??but denying any cough cold congestion fevers dysuria hematuria??vomiting.?? Also states he had a fall off a porch prior to arrival. Review of Systems: Constitutional:?No??fevers,?No??chills,?No??sweats Eye:?No??recent visual problems ENT:?No??ear pain,?No??nasal congestion,?No??sore throat Respiratory:?No??shortness of breath,?No??cough Cardiovascular:?Positive for??Chest pain,?No??palpitations,?No??syncope Gastrointestinal:?Positive fornausea,?No??vomiting,?No??diarrhea Genitourinary:?No??hematuria Yo/Lymph:?No??bruising tendency,?No??swollen lymph glands Endocrine:?No??excessive thirst,??No??excessive hunger Musculoskeletal:??No??back pain,??No??neck pain,??No??joint pain,??No??muscle pain,??No??decreased range of motion Integumentary:?No??rash,?No??pruritus,?No??abrasions Neurologic: Alert & oriented X 4 Psychiatric:?No??anxiety,?No??depression Physical Exam Vitals & Measurements T:??36.5?C ??(Temporal Artery)?? HR:??86??(Peripheral)?? RR:??14?? BP:??150/91?? SpO2:??98%?? HT:??170.000??cm?? WT:??65.00??kg??(Estimated)?? General: Alert and oriented, well nourished,?No??acute distress Eye: PERRL, EOMI,?Normal??conjunctiva HENT: Normocephalic, clear tympanic membranes,?Normal?? hearing, moist oral mucosa,?No??scleral icterus,?No??sinus tenderness Neck: Supple, non-tender,?No??carotid bruits,?No??JVD,?No??lymphadenopathy Lungs: Clear to auscultation and percussion,?Non-labored?? respiration Heart:?Normal?? rate,?Regular??rhythm,?No??murmur,?No??gallop,?No??edema Abdomen: Soft, non-tender, non-distended,?Normal?? bowel sounds,?No??masses Musculoskeletal:?Normal?? range of motion and strength,?No??tenderness,?No??swelling Skin: Left forearm has self-inflicted wounds??that are in the healing process Neurologic: Awake, alert and oriented X4, CN II-XII intact Psychiatric: Cooperative, appropriate mood and affect Medical Decision Makin-year-old male presents??with multiple symptoms.?? 36.5, 150/91, 86, 14, 98%.?? 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 ??Patient states that he has been drinking??up to 12 twisted teas a day and did cocaine when he was drunk earlier today, and he wentto [facility] this morning??to get a ride??down to [facility] to what I believe this is methadone clinic, and somehow EMS ended up picking him up from the parking lot there and bring him to the emergency department. ??He has??multiple complaints at this time including chest pain and abdominal pain among others.??I suspect that??alcohol in the setting of polysubstance use is contributing significantly to his current presentation, however given the??the lack of reliability in the story especially??that he has abdominal pain at this time and states he had??a fall off a porch just prior to arrival,??imaging and labs were ordered.?? From a psychiatric perspective, he is denying right suicidality at this time but he does have??on his left forearm healing??wound??but states what looks like kill me on the left forearm, when asked more about this he states that??he thought that the woman in his life that drives him in [facility]??will demand that he relapsed and so he??was depressed and cut himself a couple of days ago. ??Tetanus was updated. ??Signed out to oncoming physician for??follow-up on labs, imaging, disposition. Procedure No Qualifying Data Assessment/Plan 1.??Cocaine use??F14.90 2.??Alcohol use??Z78.9 Orders: Boostrix (Tdap), 0.5 mL, IM, Susp, Once, First Dose: 07/18/22 6:54:00 EST, Stop Date: 07/18/22 6:54:00 EST, Physician Stop, STAT .Manual Differential (NCTY), Blood, Stat, Collected, 07/18/22 7:30:00 EST, Once, Nurse collect, [id number] Acetaminophen Level, Blood, Stat, 07/18/22 6:51:00 EST, Once, Nurse collect Alcohol Level, Blood, Stat, 07/18/22 6:51:00 EST, Once, Nurse collect Comprehensive Metabolic Panel, Blood, Stat, 07/18/22 6:51:00 EST, Once, Nurse collect CT Abdomen and Pelvis w/ Contrast No PO, 07/18/22 6:51:00 EST, Stat, Reason: abdominal pain, Transport Mode: Stretcher, Exam to be performed outside organization? CT Brain/Head w/o Contrast, 07/18/22 6:51:00 EST, Stat, Reason: fall, alcohol use, Transport Mode: Stretcher, Exam to be performed outside organization? Drug Screen Urine, Urine, Stat Collect, 07/18/22 6:51:00 EST, Once, Nurse collect, Print Label Lipase Level, Blood, Stat, 07/18/22 6:51:00 EST, Once, Nurse collect Magnesium Level, Blood, Stat, 07/18/22 6:51:00 EST, Once, Nurse collect Salicylate Level, Blood, Stat, 07/18/22 6:51:00 EST, Once, Nurse collect Troponin-I, Blood, Stat, 07/18/22 6:55:00 EST, Once, Nurse collect Urinalysis with Micro if Indicated and Culture if Indicated, Urine, Stat Collect, 07/18/22 6:51:00 EST, Once, Nurse collect, Print Label XR Chest 1 View, 07/18/22 6:55:00 EST, Stat, Reason: chest pain, Transport Mode: Stretcher, Exam yovana performed outside organization? Problem List/Past Medical History Ongoing No qualifying data Historical No qualifying data Allergies No Known Medication Allergies Social History Electronic Cigarette/Vaping Electronic Cigarette Use: Never. Tobacco Current everyday tobacco user Tobacco Use:. Lab Results Blood Gases?? LATEST RESULTS?? pH Parrish?? 07/18/22 07:30?? 7.43?? pCO2 Parrish?? 07/18/22 07:30?? 41?? pO2 Parrish?? 07/18/22 07:30?? 38?? HCO3 Venous?? 07/18/22 07:30?? 28 ??High?? O2 Sat Parrish?? 07/18/22 07:30?? 74?? CO2 Total Venous?? 07/18/22 07:30?? 29?? Base Excess Venous?? 07/18/22 07:30?? 2.9? CBC and Differential?? LATEST RESULTS?? WBC?? 07/18/22 07:30?? 8.4?? RBC?? 07/18/22 07:30?? 4.2 ??Low?? Hgb?? 07/18/22 07:30?? 13.6 ??Low?? Hct?? 07/18/22 07:30?? 40.6 ??Low?? MCV?? 07/18/22 07:30?? 97.6 ??High?? MCH?? 07/18/22 07:30?? 32.7 ??High?? MCHC?? 07/18/22 07:30?? 33.5?? RDW-CV?? 07/18/22 07:30?? 12.9?? Platelets?? 07/18/22 07:30?? 273? Routine Chemistry?? LATEST RESULTS?? Lactic Acid Lvl?? 07/18/22 07:30?? 0.9? Electronically Signed on 07/18/22 07:46 AM Kirk Johnston MD Emergency department Discharge instructions Justyn Ch MD: PERFORM Event Display: ED Discharge Information Authored Date: [id number] NIKKI ESQUIVEL :1960 Age:61 years Sex:Male Visit Date:07/18/2022 Primary Care Physician: Rafi Macedo Discharge Instructions We would like to thank you for allowing us to assist you with your healthcare needs. The following includes patient education materials and information regarding your injury/illness. Diagnosis from Today's Visit Cocaine use Alcohol use Chronic cholecystitis with calculus Discharge Vitals Temperature??(Temporal Artery) 98.2 ??F (36.8 ??C) Heart Rate??(Apical) 85 Respiratory Rate?? 20 Blood Pressure?? 164/93?? Height?? 66.93 in (170.000 cm) Weight??(Estimated) 143.33 lb (65.00 kg) Allergies No Known Medication Allergies What to Do Next Instructions from Your Care Team Thank you for coming to the emergency department today, it has been a pleasure to take care of you.?? We were able to compare your gallbladder tests from today to the ones you had at [facility].?? There does appear to be some inflammation around the gallbladder however the labs??and imaging today it seems to be improved from when it was previously checked.?? Our surgeon reviewed the information and agreesthat it is safe for you to follow-up with your surgeon at [facility].?? Please continue to??take your medications as prescribed and return to the emergency department if you have any new or concerning symptoms You Need to Schedule the Following Appointments Follow Up with??Follow up with specialist When:??Within 2 to 4 days Why: Your surgeon at [facility] You were treated today on an emergency basis; it may be gomez to contact your primary care provider to notify them of your visit today. You may have been referred to your regular doctor or a specialist,please follow up as instructed. If your condition worsens or you can't get in to see the doctor, contact the Emergency Department. Education Materials Cholelithiasis Cholelithiasis is a disease in which gallstones form in the gallbladder. The gallbladder is an organ that stores bile. Bile is a fluid that helps to digest fats. Gallstones begin as small crystals andcan slowly grow into stones. They may cause no symptoms until they block the gallbladder duct, or cystic duct, when the gallbladder tightens (contracts) after food is eaten. This can cause pain and is known as a gallbladder attack, or biliary colic. There are two main types of gallstones: ? Cholesterol stones. These are the most common type of gallstone. These stones are made of hardened cholesterol and are usually yellow-green in color. Cholesterol is a fat-like substance that is made inthe liver. ? Pigment stones. These are dark in color and are made of a red-yellow substance, called bilirubin,that forms when hemoglobin from red blood cells breaks down. What are the causes? This condition may be caused by an imbalance in the different parts that make bile. This can happenif the bile: ? Has too much bilirubin. This can happen in certain blood diseases, such as sickle cell anemia. ? Has too much cholesterol. ? Does not have enough bile salts. These salts help the body absorb and digest fats. In some cases, this condition can also be caused by the gallbladder not emptying completely or often enough. This is common during . What increases the risk? The following factors may make you more likely to develop this condition: ? Being female. ? Having multiple pregnancies. Health care providers sometimes advise removing diseased gallbladders before future pregnancies. ? Eating a diet that is heavy in fried foods, fat, and refined carbohydrates, such as white bread and white rice. ? Being obese. ? Being older than age 40. ? Using medicines that contain female hormones (estrogen) for a long time. ? Losing weight quickly. ? Having a family history of gallstones. ? Having certain medical problems, such as: ? Diabetes mellitus. ? Cystic fibrosis. ? Crohn's disease. ? Cirrhosis or other long-term (chronic) liver disease. ? Certain blood diseases, such as sickle cell anemia or leukemia. What are the signs or symptoms? In many cases, having gallstones causes no symptoms. When you have gallstones but do not have symptoms, you have silent gallstones. If a gallstone blocks your bile duct, it can cause a gallbladder attack. The main symptom of a gallbladder attack is sudden pain in the upper right part of the abdomen. The pain: ? Usually comes at night or after eating. ? Can last for one hour or more. ? Can spread to your right shoulder, back, or chest. ? Can feel like indigestion. This is discomfort, burning, or fullness in your upper abdomen. If the bile duct is blocked for more than a few hours, it can cause an infection or inflammation ofyour gallbladder (cholecystitis), liver, or pancreas. This can cause: ? Nausea or vomiting. ? Bloating. ? Pain in your abdomen that lasts for 5 hours or longer. ? Tenderness in your upper abdomen, often in the upper right section and under your rib cage. ? Fever or chills. ? Skin or the white parts of your eyes turning yellow (jaundice). This usually happens when a stone has blocked bile from passing through the common bile duct. ? Dark urine or light-colored stools. How is this diagnosed? This condition may be diagnosed based on: ? A physical exam. ? Your medical history. ? Ultrasound. ? CT scan. ? MRI. You may also have other tests, including: ? Blood tests to check for signs of an infection or inflammation. ? Cholescintigraphy, or HIDA scan. This is a scan of your gallbladder and bile ducts (biliary system) using non-harmful radioactive material and special cameras that can see the radioactive material. ? Endoscopic retrograde cholangiopancreatogram. This involves inserting a small tube with a camera on the end (endoscope) through your mouth to look at bile ducts and check for blockages. How is this treated? Treatment for this condition depends on the severity of the condition. Silent gallstones do not need treatment. Treatment may be needed if a blockage causes a gallbladder attack or other symptoms. Treatment may include: ? Home care, if symptoms are not severe. ? During a simple gallbladder attack, stop eating and drinking for 12???24 hours (except for water andclear liquids). This helps to cool down your gallbladder. After 1 or 2 days, you can start to eat a diet of simple or clear foods, such as broths and crackers. ? You may also need medicines for pain or nausea or both. ? If you have cholecystitis and an infection, you will need antibiotics. ? A hospital stay, if needed for pain control or for cholecystitis with severe infection. ? Cholecystectomy, or surgery to remove your gallbladder. This is the most common treatment if all other treatments have not worked. ? Medicines to break up gallstones. These are most effective at treating small gallstones. Medicines may be used for up to 6???12 months. ? Endoscopic retrograde cholangiopancreatogram. A small basket can be attached to the endoscope and used to capture and remove gallstones, mainly those that are in the common bile duct. Follow these instructions at home: Medicines ? Take [id number] and prescription medicines only as told by your health care provider. ? If you were prescribed an antibiotic medicine, take it as told by your health care provider. Do not stop taking the antibiotic even if you start to feel better. ? Ask your health care provider if the medicine prescribed to you requires you to avoid driving or using machinery. Eating and drinking ? Drink enough fluid to keep your urine pale yellow. This is important during a gallbladder attack. Water and clear liquids are preferred. ? Follow a healthy diet. This includes: ? Reducing fatty foods, such as fried food and foods high in cholesterol. ? Reducing refined carbohydrates, such as white bread and white rice. ? Eating more fiber. Aim for foods such as almonds, fruit, and beans. Alcohol use ? If you drink alcohol: ? Limit how much you use to: ? 0???1 drink a day for non women. ? 0???2 drinks a day for men. ? Be aware of how much alcohol is in your drink. In the [place] one drink equals one 12 oz bottle of beer (355 mL), one 5 oz glass of wine (148 mL), or one 1?? oz glass of hard liquor (44 mL). General instructions ? Do not use any products that contain nicotine or tobacco, such as cigarettes, e- cigarettes, and chewing tobacco. If you need help quitting, ask your health care provider. ? Maintain a healthy weight. ? Keep all follow-up visits as told by your health care provider. These may include consultations witha surgeon or specialist. This is important. Where to find more information ? National [place] of Diabetes and Digestive and Kidney Diseases: www.niddk.nih.gov Contact a health care provider if: ? You think you have had a gallbladder attack. ? You have been diagnosed with silent gallstones and you develop pain in your abdomen or indigestion. ? You begin to have attacks more often. ? You have dark urine or light-colored stools. Get help right away if: ? You have pain from a gallbladder attack that lasts for more than 2 hours. ? You have pain in your abdomen that lasts for more than 5 hours or is getting worse. ? You have a fever or chills. ? You have nausea and vomiting that do not go away. ? You develop jaundice. Summary ? Cholelithiasis is a disease in which gallstones form in the gallbladder. ? This condition may be caused by an imbalance in the different parts that make bile. This can happen if your bile has too much bilirubin or cholesterol, or does not have enough bile salts. ? Treatment for gallstones depends on the severity of the condition. Silent gallstones do not need treatment. ? If gallstones cause a gallbladder attack or other symptoms, treatment usually involves not eating ordrinking anything. Treatment may also include pain medicines and antibiotics, and it sometimes includes a hospital stay. ? Surgery to remove the gallbladder is common if all other treatments have not worked. This information is not intended to replace advice given to you by your health care provider. Make sure you discuss any questions you have with your health care provider. Document Revised: 07/18/2020 Document Reviewed: 07/18/2020 [employer] Patient Education ?? 2021 [employer] Tests Performed Medications and Immunizations Administered Given Boostrix (Tdap), 0.5 mL, IM Lab Test Name Test Result Date/Time pH Parrish 7.43 pH unit(s) 07/18/2022 07:30 EST pCO2 Parrish 41 mmHg 07/18/2022 07:30 EST pO2 Parrish 38 mmHg 07/18/2022 07:30 EST HCO3 Venous 28 mEq/L 07/18/2022 07:30 EST O2 Sat Parrish 74 % 07/18/2022 07:30 EST CO2 Total Venous 29 mmol/L 07/18/2022 07:30 EST Base Excess Venous 2.9 mmol/L 07/18/2022 07:30 EST WBC 8.4 x10^3/mcL 07/18/2022 07:30 EST RBC 4.2 x10^6/mcL 07/18/2022 07:30 EST Hgb 13.6 g/dL 07/18/2022 07:30 EST Hct 40.6 % 07/18/2022 07:30 EST MCV 97.6 07/18/2022 07:30 EST MCH 32.7 pg 07/18/2022 07:30 EST MCHC 33.5 g/dL 07/18/2022 07:30 EST RDW-CV 12.9 % 07/18/2022 07:30 EST Platelets 273 x10^3/mcL 07/18/2022 07:30 EST Segs Man 90 % 07/18/2022 07:30 EST Lymph Man 7 % 07/18/2022 07:30 EST [place] Man 2 % 07/18/2022 07:30 EST Eos Man 1 % 07/18/2022 07:30 EST Baso Man 0 % 07/18/2022 07:30 EST Band Man 0 % 07/18/2022 07:30 EST Abs Neut Man 7.6 x10^3/mcL 07/18/2022 07:30 EST RBC Morph Normal 07/18/2022 07:30 EST Sodium Level 141 mmol/L 07/18/2022 07:30 EST Potassium Level 3.6 mmol/L 07/18/2022 07:30 EST Chloride Level 103 mmol/L 07/18/2022 07:30 EST CO2 27 mmol/L 07/18/2022 07:30 EST Alk Phos 113 unit/L 07/18/2022 07:30 EST AST 32 unit/L 07/18/2022 07:30 EST ALT 27 unit/L 07/18/2022 07:30 EST BUN 10 mg/dL 07/18/2022 07:30 EST Glucose Level 116 mg/dL 07/18/2022 07:30 EST Creatinine Level 0.78 mg/dL 07/18/2022 07:30 EST eGFR AA 101 07/18/2022 07:30 EST eGFR Non-AA 101 07/18/2022 07:30 EST Calcium Level 8.9 mg/dL 07/18/2022 07:30 EST Protein Total 7.4 g/dL 07/18/2022 07:30 EST Albumin Level 3.6 g/dL 07/18/2022 07:30 EST Bilirubin Total 0.9 mg/dL 07/18/2022 07:30 EST Lactic Acid Lvl 0.9 mmol/L 07/18/2022 07:30 EST Lipase Level 127 unit/L 07/18/2022 07:30 EST Magnesium Level 2.0 mg/dL 07/18/2022 07:30 EST Troponin-I 19.1 pg/mL 07/18/2022 07:30 EST Acetaminophen Level <10 ug/mL 07/18/2022 07:30 EST Salicylate Level 1.1 mg/dL 07/18/2022 07:30 EST Ethanol Level <5 mg/dL 07/18/2022 07:30 EST U Amph Scrn NEGATIVE 07/18/2022 08:20 EST U Violette Scrn NEGATIVE 07/18/2022 08:20 EST U Benzodia Scrn POSITIVE 07/18/2022 08:20 EST U Buprenorph Scr NEGATIVE 07/18/2022 08:20 EST U Cocaine Scrn POSITIVE 07/18/2022 08:20 EST U TCA Scr NEGATIVE 07/18/2022 08:20 EST U THC Scr POSITIVE 07/18/2022 08:20 EST U mAMP Scr NEGATIVE 07/18/2022 08:20 EST U Methadone Scr POSITIVE 07/18/2022 08:20 EST U Opiate Scrn NEGATIVE 07/18/2022 08:20 EST U Oxy Scrn NEGATIVE 07/18/2022 08:20 EST U PCP Scrn NEGATIVE 07/18/2022 08:20 EST U PPX Scr NEGATIVE 07/18/2022 08:20 EST UA Color Pale Yello 07/18/2022 08:20 EST UA Appear Hazy- [place] 07/18/2022 08:20 EST UA Glucose NEGATIVE 07/18/2022 08:20 EST UA Bili NEGATIVE 07/18/2022 08:20 EST UA Ketones 1+ 07/18/2022 08:20 EST UA Spec Grav 1.015 07/18/2022 08:20 EST UA Blood NEGATIVE 07/18/2022 08:20 EST UA pH 7.5 07/18/2022 08:20 EST UA Protein NEGATIVE 07/18/2022 08:20 EST UA Urobilinogen 0.2 Uro 07/18/2022 08:20 EST UA Nitrite NEGATIVE 07/18/2022 08:20 EST UA Leuk Est NEGATIVE 07/18/2022 08:20 EST UA Culture Ind?. Indicated 07/18/2022 08:20 EST UA WBC 0-3 07/18/2022 08:20 EST UA RBC 0-2 07/18/2022 08:20 EST UA Squam Epithelial Rare 07/18/2022 08:20 EST UA Mucous Few 07/18/2022 08:20 EST UA Bacteria Few 07/18/2022 08:20 EST UA Amorph Moderate 07/18/2022 08:20 EST Patient/Informatics Nurse Specialist Signature Patient Name:NIKKI ESQUIVEL I have received this information and my questions have been answered. Patient/Informatics Nurse Specialist Name: Patient/Informatics Nurse Specialist Signature: Relationship to Patient: Witness Name/Signature: Date: Electronically Signed on: 07/18/2022 15:17 ESTSigned by:BELA Patient Care team information Care Team PersonnelName: Rafi Macedo Position: No Access Member Role: Primary Care Physician Address: Address: [facility] [address] [place] [address]- [place] Name: Malick Christi Position: Nurse Member Role: ED Nurse Name: Semaj Downs Position: Nurse Member Role: ED Nurse Name: Justyn Ch MD Position: Physician Member Role: ED Physician Address: Address: [address] [place] [address] [address] [place] [address] [place] Care Team Related PersonsName: ANA MARIA JASON
--- NOTE | 2022-09-14 14:05 | DI.US_ITS ---
Exam(s) US LOWER EXTREMITY VENOUS RT EXAM: US LOWER EXTREMITY VENOUS RT CLINICAL HISTORY: Likely DVT, previous venous stripping R60.0 EDEMA. TECHNIQUE: Lower extremity venous ultrasound performed using grayscale, color-flow, and spectral Do ppler analysis. COMPARISON: No exams were available for comparison FINDINGS: The common femoral, femoral and popliteal veins demonstrate normal compressibility, augmentation, and color Doppler. The posterior tibial veins are patent. No saphenous vein thrombosis or other superfi cial venous thrombosis is seen. No hematoma or Reyes's cyst is seen. IMPRESSION: Negative lower extremity ultrasound. No evidence of DVT. DATA REPOSITORY:
== END 2022-09-14 00:44 ==
PROVIDERS: PCP Family Medicine; Visit Provider Family Medicine
DX: R60.0 Localized edema (principal)
CPT/HCPCS: 93971

== ENCOUNTER 2023-02-22 09:46 | Emergency (ER) | payer MEDICARE, MEDICAID, SELFPAY ==
[2023-02-22] VITALS (39 sets, daily range): BP systolic 129–194; BP diastolic 70–104; PULSE 78–102; RESP 9–22; TEMP 36.9–37; O2SAT 82–100
--- NOTE | 2023-02-22 10:00 | RT.EKG_ITS ---
APPROVED REPORT Exam: Resting ECG Reason for Exam: epigastric pain Patient Location: E HR:84 bpm ECG Measurements Heart Rate 84 AXIS TN 198 P 39 QRSd 111 QRS 32 QT 358 T 31 QTc 424 Conclusion Sinus rhythm...normal P axis, V-rate 60- 99 Probable left atrial enlargement...P >50mS, <-0.10mV V1
[2023-02-22 10:23] LABS: Abs Immature Grans 0.03 10^3/uL (0.0-0.06); Absolute Basophil Count 0.02 10^3/uL (0.0-0.2); Absolute Eosinophil Count 0.02 10^3/uL (0.0-0.7); Absolute Lymphocyte Count 0.76 10^3/uL (1.2-3.4); Absolute Monocyte Count 0.58 10^3/uL (0.1-0.8); Absolute Neutrophil Count 7.19 10^3/uL (1.2-6.7); Basophils % 0.2; Eosinophils % 0.2; HCT 48.6 % (40.0-50.0); HGB 17.2 g/dL (13.5-17.5); Immature Grans % 0.3; Lymphocytes % 8.8; MCH 29.8 pg (27.0-33.0); MCHC 35.4 % (32.0-36.0); MCV 84 fL (80-95); Monocytes % 6.7; Neutrophils % 83.8; Platelet Count 167 10^3/uL (130-400); RBC 5.77 10^6/uL (4.36-5.78); RDW 13.2 % (11.8-14.1); RDW-SD 40.5 fL
[2023-02-22] MEDS: Pantoprazole 40 MG VIAL IVP (10:24)
[2023-02-22] MEDS: Normal Saline 1,000 ML 1000 ML IV (10:26)
[2023-02-22] MEDS: Ondansetron 4 MG/2 ML VIAL IVP (10:26)
[2023-02-22] MEDS: LORazepam 2 MG/ML VIAL 1 MG IVP (10:27)
[2023-02-22 10:36] LABS: INR 1.1 (0.9-1.1); Prothrombin Time 11.5 sec (9.3-11.0)
[2023-02-22 10:46] LABS: ALT 33 U/L (16-63); AST 28 U/L (15-37); Albumin 4.5 g/dL (3.4-5.0); Alkaline Phosphatase 145 U/L (46-116); Anion Gap 9.3 mmol/L (3-11); BUN 14 mg/dL (7-18); CO2 29.7 mmol/L (21.0-32.0); Calcium 10.3 mg/dL (8.5-10.1); Chloride 97 mmol/L (98-107); Glucose 157 mg/dL (74-106); Lipase 28 U/L (16-77); Magnesium 1.8 mg/dL (1.8-2.4); Potassium 3.4 mmol/L (3.5-5.1); Sodium 136 mmol/L (136-145); Total Protein 8.8 g/dL (6.4-8.2); Troponin I < 50 ng/L (<or=60)
[2023-02-22] MEDS: fentaNYL 100 MCG/2 ML VIAL 75 MCG IVP (11:15)
[2023-02-22] MEDS: Normal Saline - Diluent 50 ML VIAL IJ (11:27)
[2023-02-22] MEDS: Normal Saline Flush 10 ML SYR IJ (11:27)
[2023-02-22] MEDS: Omnipaque 350 MG/ML 500 ML BTL-Imaging package 100 ML IJ (11:29)
--- NOTE | 2023-02-22 11:39 | DI.CT_ITS ---
Exam(s) CT CHEST/ABD/PEL W EXAM: CT CHEST/ABD/PEL W CLINICAL HISTORY: vomiting blood, abdominal pain, etoh. TECHNIQUE: Imaging Protocol: Axial computed tomography images with coronal and sagittal reformatted images were created and reviewed CONTRAST MATERIAL: Intravenous: Omnipaque 350 Contrast volume:100 ml Oral: None COMPARISON: CT CT ABDOMEN PELVIS W from 07/04/2022 FINDINGS: CHEST: LUNGS: There are no infiltrates nor pleural effusions. No ominous pulmonary nodule seen. No focal fin dings in the trachea and mainstem bronchi. There is no bronchiectasis.. MEDIASTINUM: There is no hilar nor mediastinal adenopathy. Visualized thyroid unremarkable. CARDIAC: Heart size is normal. There is no pericardial effusion.Caliber thoracic aorta is within nor mal limits. No dissection. OSSEOUS: No acute fractures. No osseous lesions. Prior right shoulder surgery at the level of glenoid fossa-probable Bankart repair. Lower down there is degenerative anterolisthesis L4 upon L5 and L5 up on S1. ABDOMEN: There is no ascites. LIVER: There are no focal hepatic lesions nor dilatation of intrahepatic ducts. GALLBLADDER/BILIARY: Gallbladder is abnormal. Contains calculi and slightly thickened wall. CBD is no t dilated. No obvious radiopaque calculi evident in nondilated CBD. PANCREAS: No evidence of pancreatic mass nor dilatation of the pancreatic duct. SPLEEN: Spleen is not enlarged. There are no intrasplenic lesions. Splenic and portal veins are barbour nt. ADRENALS: There are no significant adrenal masses. KIDNEYS: No calculi nor hydronephrosis. No solid renal masses. No cysts evident. ABDOMINAL AORTA: Abdominal aorta is not enlarged. LYMPH NODES: There is no retroperitoneal nor paraaortic adenopathy. ABDOMINAL WALL: No evidence of significant anterior abdominal wall nor inguinal hernia. GI: There is no evidence of bowel obstruction. PELVIS: LYMPH NODES: There is no intrapelvic nor inguinal adenopathy. GI: No evidence of appendicitis.No evidence of sigmoid diverticulitis. URINARY BLADDER: No calculi nor masses evident REPRODUCTIVE: Mildly enlarged prostate. Seminal vesicles unremarkable. OSSEOUS: No significant osseous lesions. IMPRESSION: 1. Compared to the prior CT scan June 2022 there is cholelithiasis again noted. Mild thickening o f the gallbladder wall noted. No prominent pericholecystic streaking. If clinically indicated follow- up ultrasound could be performed. 2. No other significant findings in the abdomen and pelvis. 3. No acute intrathoracic findings 4. Previous right shoulder Bankart fracture repair surgery. Degenerative changes. RADIATION DOSE DELIVERED: 1,471.81mGy.cm Total DLP DATA REPOSITORY: All CT scans at this facility are submitted to the National Radiology Data Registry (NRDR) Dose Index Registry (DIR) with the [employer] (ACR). RADIATION OPTIMIZATION: All CT scans at this facility use at least one of these dose optimization te chniques: automated exposure control; mA and/or kV adjustment per patient size (includes targeted exa ms where dose is matched to clinical indication); or iterative reconstruction.
--- NOTE | 2023-02-22 12:27 | W.ED.GENAD ---
Discharge Plan Disposition Patient Disposition: Home Discharge Details Clinical Impression: Alcohol dependence with withdrawal, Cholelithiasis Primary Care Provider: Rafi Macedo ED Provider: Maryse Workman Home Meds and New Rx's Prescriptions: New sucralfate [Carafate] 1 gram tablet 1 g PO BID Qty: 60 0RF famotidine [Pepcid] 20 mg tablet 20 mg PO BID Qty: 30 0RF omeprazole 20 mg capsule,delayed release(DR/EC) 20 mg PO DAILY 56 Days Qty: 56 0RF chlordiazepoxide HCl 25 mg capsule 25 - 50 mg PO Q8H Qty: 12 0RF Continued trazodone 100 mg tablet 100 mg PO QHS PRN (Reason: sleep) Qty: 90 0RF venlafaxine 75 mg capsule,extended release 24hr 75 mg PO DAILY Qty: 60 0RF Patient Comments: pt is unsure if he is taking acamprosate 333 mg tablet,delayed release (DR/EC) 333 mg PO BID Qty: 180 3RF Patient Comments: pt is unsure if he is taking Rx Instructions: administer with mid-day and evening meals cyanocobalamin (vitamin B-12) [Vitamin B-12] 1,000 mcg tablet 1,000 mcg PO DAILY Qty: 90 3RF Rx Instructions: 08/03/22 per [facility] folic acid 1 mg tablet 1 mg PO DAILY Qty: 90 3RF Patient Comments: pt is unsure if he is taking Rx Instructions: 08/03/22 per [facility] ketoconazole 2 % cream 1 applic topical DAILY Qty: 30 0RF Rx Instructions: 08/03/22 per [facility] quetiapine 200 mg tablet 200 mg PO QHS Qty: 90 3RF pregabalin [Lyrica] 300 mg capsule 300 mg PO TID Qty: 270 3RF naproxen 500 mg tablet 500 mg PO BID Qty: 180 3RF buprenorphine-naloxone [Suboxone] 12-3 mg film 1 film sublingual TID Patient Comments: [facility] inpatient psychiatrist states he is starting him on this but has called [facility] and pt is going to f/u with [facility] for this rx Discharge Instructions Additional Instructions: Take Librium, 25 to 50 mg 3 times a day as needed for withdrawal symptoms Do not combine this with alcohol, use caution with your buprenorphine Take the Carafate and Pepcid, and Prilosec as prescribed This is to help your abdomen Follow-up with surgery, and listing the surgeon below, you will likely need a cholecystectomy or gallbladder removal, however you will need to be cleared by your doctor prior to this Please return should you have new or worsening complaints [facility], you have received their information and they can assist you with your alcohol withdrawal resources Referrals: Rafi Macedo DO [Primary Care Provider] - Medical Decision Making 62-year-old gentleman with history of alcohol dependence presenting with report of nausea, vomiting, abdominal pain, and report of alcohol withdrawal. Denies any fever or chills. States has not had pain such as this in the past. Denies known exacerbating or alleviating factors. Denies any additional illicit drug use. Patient is anxious but cooperative, alert and oriented x4, no tremulousness, no auditory or visual hallucinations Cranial nerves II through XII intact, uvula midline, moist mucous membranes Abdominal tenderness, in the epigastrium and right upper quadrant, no rebound or guarding No CVA tenderness Distal pulses intact Patient was offered admission for alcohol withdrawal, he is declining, he is fully alert and oriented and of decisional capacity, his mother is in the room and states she will distribute his Librium Given prescription for Librium for acute withdrawal, given [facility]'s information and was evaluated by [facility] with resources Case is discussed with Dr. Villa who recommends patient become sober from alcohol and then consideration of cholecystectomy, no acute leukocytosis, fever, at this time, patient appears stable, he is refusing admission, he is discharged home in the care of his mother with meds for alcohol withdrawal, and Carafate, Pepcid, and Prilosec Return precautions were reviewed and patient expressed understanding, Dr. Villa, surgery referral, Dr. Sprague, patient's primary care physician will need close outpatient reassessment to assist patient with his alcohol dependence Return precautions reviewed and patient expressed understanding Patient remains fully alert, oriented, of decisional capacity and discharged home in care of his mother HPI General Date/Time Provider Initiated Documentation: 02/22/23 09:52. HPI Narrative: 62-year-old gentleman with history of alcoholic dependence, hypokalemia, pancreatitis presents for report of abdominal pain with 2 episodes of mild blood streaks vomitus yesterday. Denies any blood in vomitus today. Reports persistent nausea. Has not been able to consume alcohol for 2 days per patient. Denies any fever or chills. Denies any known sick contacts. Typically drinks 12 twisted teas a day. History of withdrawal symptoms per patient. States he has not had a drink in approximately 48 hours. Related Data Home Medications Medication Instructions Recorded Confirmed buprenorphine 12 mg-naloxone 3 mg 1 film sublingual TID 08/10/22 02/22/23 sublingual film (Suboxone) acamprosate 333 mg tablet,delayed 333 mg PO BID #180 tabs 11/01/22 01/28/23 release cyanocobalamin (vitamin B-12) 1,000 mcg PO DAILY #90 tabs 11/01/22 02/22/23 1,000 mcg tablet (Vitamin B-12) folic acid 1 mg tablet 1 mg PO DAILY #90 tabs 11/01/22 01/28/23 ketoconazole 2 % topical cream 1 applic topical DAILY #30 grams 11/01/22 02/22/23 naproxen 500 mg tablet 500 mg PO BID #180 tabs 11/01/22 02/22/23 pregabalin 300 mg capsule (Lyrica) 300 mg PO TID #270 caps 11/01/22 02/22/23 quetiapine 200 mg tablet 200 mg PO QHS #90 tabs 11/01/22 02/22/23 trazodone 100 mg tablet 100 mg PO QHS PRN sleep #90 tabs 01/28/23 02/22/23 venlafaxine 75 mg capsule,extended 75 mg PO DAILY #60 caps 01/28/23 01/28/23 release 24 hr chlordiazepoxide HCl 25 mg capsule 25 - 50 mg PO Q8H #12 caps 02/22/23 famotidine 20 mg tablet (Pepcid) 20 mg PO BID #30 tabs 02/22/23 omeprazole 20 mg capsule,delayed 20 mg PO DAILY 8 weeks #56 caps 02/22/23 release sucralfate 1 gram tablet (Carafate) 1 g PO BID #60 tabs 02/22/23 Previous Rx's Medication Instructions Recorded acamprosate 333 mg tablet,delayed 333 mg PO BID #180 tabs 11/01/22 release cyanocobalamin (vitamin B-12) 1,000 mcg PO DAILY #90 tabs 11/01/22 1,000 mcg tablet (Vitamin B-12) folic acid 1 mg tablet 1 mg PO DAILY #90 tabs 11/01/22 ketoconazole 2 % topical cream 1 applic topical DAILY #30 grams 11/01/22 naproxen 500 mg tablet 500 mg PO BID #180 tabs 11/01/22 pregabalin 300 mg capsule (Lyrica) 300 mg PO TID #270 caps 11/01/22 quetiapine 200 mg tablet 200 mg PO QHS #90 tabs 11/01/22 trazodone 100 mg tablet 100 mg PO QHS PRN sleep #90 tabs 01/28/23 venlafaxine 75 mg capsule,extended 75 mg PO DAILY #60 caps 01/28/23 release 24 hr chlordiazepoxide HCl 25 mg capsule 25 - 50 mg PO Q8H #12 caps 02/22/23 famotidine 20 mg tablet (Pepcid) 20 mg PO BID #30 tabs 02/22/23 omeprazole 20 mg capsule,delayed 20 mg PO DAILY 8 weeks #56 caps 02/22/23 release sucralfate 1 gram tablet (Carafate) 1 g PO BID #60 tabs 02/22/23 Allergies Allergy/AdvReac Type Severity Reaction Status Date / Time No Known Allergies Allergy Verified 02/22/23 09:51 General Stated Complaint: ETOHWithdr ESTER: 3 PFSH All Active Problems (Updated 02/22/23 @ 13:46 by BEVERLY Fajardo) Cholelithiasis (Acute) Depression (Chronic) Cubital tunnel syndrome on left (Acute) Cataracts, bilateral (Acute ~08/2022) 08/21/22 [place] - considered Mild updated glasses prescription Cocaine use disorder (Acute) Severe Opioid dependence (Acute) Severe Hypomagnesemia (Acute) Urinary retention (Acute) Dilated bile duct (Acute) Hypokalemia (Acute) Alcoholic pancreatitis (Acute) Alcohol dependence with withdrawal (Acute) Severe Narcotic withdrawal (Acute) Acute gallstone pancreatitis (Acute) Alcohol intoxication (Acute) No-show for appointment (Acute) Arthritis of right glenohumeral joint (Acute) Fracture of right clavicle (Acute) distal clavicle 12/12/21 Varicose veins of both lower extremities (Acute) Hyperglycemia (Acute) Low back pain (Acute) Prostatitis (Acute) Inflammatory disease of liver (Chronic) Atrophic gastritis (Acute) Heart block (Acute) Claustrophobia (Acute) Vitamin D deficiency (Acute) Disorder of endocrine system (Acute) Medical History (Updated 02/22/23 @ 13:46 by BEVERLY Fajardo) ADHD Alcoholism Anemia of chronic disease Depressive disorder Essential hypertension GERD (gastroesophageal reflux disease) Gout Psychotic disorder with delusions Tobacco use disorder Type II diabetes mellitus Surgical History History of foot surgery History of tonsillectomy Social History Smoking/Tobacco Use Status: Current every day Tobacco Type: cigarettes Tobacco: How many years used: 48 Quit status: considering quitting Counseling given: support medications Smoking risk assessment performed?: Yes Alcohol Intake: current Alcohol Intake frequency: 3 or more drinks per day Drug use: Daily Substance use type: former substance user, marijuana and crack/cocaine Details: H/O substance abuse - heroin Adopted: No Housing: other Details: [facility] Communication Needs: None current occupation: disabled Pets and animals: No Current gender identity: male What is your relationship status?: don't know How often do you talk on the phone with friends or family?: three or more times per week How often do you get together with friends or relatives?: three or more times per week Panel score (0-1 are the most socially isolated patients): 1 What type of physical activity do you participate in: none Seatbelt use: sometimes Fire extinguisher in home: No Carbon monox detector in home: No Firearms in home: No Do you feel safe at home: Yes Do you feel safe in your relationship?: Yes Course Vital Signs Vital signs: Vital Signs Temperature 36.9 C 02/22/23 09:48 Pulse 98 H 02/22/23 09:48 Respiratory Rate 22 02/22/23 09:48 Blood Pressure 190/98 H 02/22/23 09:48 Pulse Oximetry 99 02/22/23 09:48 Temperature 36.9 C 02/22/23 09:48 Temperature Source Skin 02/22/23 09:48 Pulse 87 02/22/23 11:16 Pulse 87 02/22/23 11:50 Respiratory Rate 15 02/22/23 11:20 Respiratory Effort Normal 02/22/23 10:30 Respiratory Pattern Normal 02/22/23 12:01 Blood Pressure 146/92 H 02/22/23 11:16 Blood Pressure Mean 106 02/22/23 11:16 Blood Pressure Position Supine 02/22/23 09:48 Pulse Oximetry 98 02/22/23 11:50 Oxygen Delivery Method Room Air 02/22/23 09:48 Oxygen Flow Rate 0 02/22/23 09:48 Pain Level 8 02/22/23 10:24 Lab/Test Results Lab/Test Results: Laboratory Tests Range/Units 02/22/23 02/22/23 02/22/23 10:14 10:14 10:14 WBC (4.4-10.8) 10^3/uL 8.60 RBC (4.36-5.78) 10^6/uL 5.77 Hgb (13.5-17.5) g/dL 17.2 Hct (40.0-50.0) % 48.6 MCV (80-95) fL 84 MCH (27.0-33.0) pg 29.8 MCHC (32.0-36.0) % 35.4 RDW (11.8-14.1) % 13.2 Plt Count (130-400) 10^3/uL 167 MPV (8.0-11.0) fL 9.0 Immature Gran % 0.3 Neutrophils % 83.8 Lymphocytes % 8.8 Monocytes % 6.7 Eosinophils % 0.2 Basophils % 0.2 Nucleated RBC % (0.0-0.3) % 0.0 Absolute Neutrophils (1.2-6.7) 10^3/uL 7.19 H Absolute Lymphocytes (1.2-3.4) 10^3/uL 0.76 L Absolute Monocytes (0.1-0.8) 10^3/uL 0.58 Absolute Eosinophils (0.0-0.7) 10^3/uL 0.02 Absolute Basophils (0.0-0.2) 10^3/uL 0.02 PT (9.3-11.0) sec 11.5 H INR (0.9-1.1) 1.1 Sodium (136-145) mmol/L 136 Potassium (3.5-5.1) mmol/L 3.4 L Chloride (98-107) mmol/L 97 L Carbon Dioxide (21.0-32.0) mmol/L 29.7 Anion Gap (3-11) mmol/L 9.3 BUN (7-18) mg/dL 14 Creatinine (0.70-1.30) mg/dL 1.0 Est GFR (CKD-EPI 2020) (mL/min/1.73m2) 85.10 Glucose (74-106) mg/dL 157 H Calcium (8.5-10.1) mg/dL 10.3 H Magnesium (1.8-2.4) mg/dL 1.8 Total Bilirubin (0.2-1.0) mg/dL 1.0 AST (15-37) U/L 28 ALT (16-63) U/L 33 Alkaline Phosphatase (46-116) U/L 145 H Troponin I (<or=60) ng/L < 50 Total Protein (6.4-8.2) g/dL 8.8 H Albumin (3.4-5.0) g/dL 4.5 Lipase (16-77) U/L 28 Patient ABO/Rh Antibody Screen Range/Units 02/22/23 10:14 WBC (4.4-10.8) 10^3/uL RBC (4.36-5.78) 10^6/uL Hgb (13.5-17.5) g/dL Hct (40.0-50.0) % MCV (80-95) fL MCH (27.0-33.0) pg MCHC (32.0-36.0) % RDW (11.8-14.1) % Plt Count (130-400) 10^3/uL MPV (8.0-11.0) fL Immature Gran % Neutrophils % Lymphocytes % Monocytes % Eosinophils % Basophils % Nucleated RBC % (0.0-0.3) % Absolute Neutrophils (1.2-6.7) 10^3/uL Absolute Lymphocytes (1.2-3.4) 10^3/uL Absolute Monocytes (0.1-0.8) 10^3/uL Absolute Eosinophils (0.0-0.7) 10^3/uL Absolute Basophils (0.0-0.2) 10^3/uL PT (9.3-11.0) sec INR (0.9-1.1) Sodium (136-145) mmol/L Potassium (3.5-5.1) mmol/L Chloride (98-107) mmol/L Carbon Dioxide (21.0-32.0) mmol/L Anion Gap (3-11) mmol/L BUN (7-18) mg/dL Creatinine (0.70-1.30) mg/dL Est GFR (CKD-EPI 2020) (mL/min/1.73m2) Glucose (74-106) mg/dL Calcium (8.5-10.1) mg/dL Magnesium (1.8-2.4) mg/dL Total Bilirubin (0.2-1.0) mg/dL AST (15-37) U/L ALT (16-63) U/L Alkaline Phosphatase (46-116) U/L Troponin I (<or=60) ng/L Total Protein (6.4-8.2) g/dL Albumin (3.4-5.0) g/dL Lipase (16-77) U/L Patient ABO/Rh A Positive Antibody Screen NEGATIVE PAWSS Have you Been Recently Intoxicated or Drunk Within the Last 30 days?: Yes Have you Ever Experienced Previous Episodes of Alcohol Withdrawal?: Yes Have you ever Experienced Withdrawal Seizures?: No Have you ever Experienced Delirium Tremens(DT)s?: Yes Have you ever undergone Alcohol Rehabilitation Treatment (i.e, inpt ot outpatient treatment programs)?: Yes Have you ever Experienced Blackouts?: Yes Have you ever Combined Alcohol with other Downers within the last 90 days?: No Have you ever Combined Alcohol with any other Substance of Abuse during the last 90 days?: No Positive Blood Alcohol level on Presentation? [PCS.BAL]: Yes Evidence of Increased Autonomic Activity (i.e. HR>120, tremor, sweating, agitation, nausea)?: No Result: 6
[2023-02-22] MEDS: HYDROmorphone 2 MG/ML SYR 1 MG IVP (12:32)
[2023-02-22 12:53] LABS: Amylase 64 U/L (25-115)
[2023-02-22] MEDS: FAMOTIDINE 20 MG in Normal Saline 100 ML 400 MG IVPB (12:56)
--- NOTE | 2023-02-22 13:40 | NUR.NOTE ---
Nursing Note: PT needs follow up next week with surgery & PCP for Gall bladder & alcohol dependance. Karina, ED
--- NOTE | 2023-02-22 14:31 | NUR.NOTE ---
Accessed patient chart to determine how many EKG orders were in the chart from the ED. There was an outstanding EKG in ordered status. There are no EKG's in the [facility] system that are outstanding. Nursing Note:
== END 2023-02-22 14:02 | disposition home or self-care (01) ==
PROVIDERS: Emergency Provider Physician Assistant; PCP Family Medicine
DX: F10.239 Alcohol dependence with withdrawal, unspecified (principal); K80.20 Calculus of gallbladder without cholecystitis without obstruction; Z51.81 Encounter for therapeutic drug level monitoring
CPT/HCPCS: 36415; 74177; 80053; 83690; 86850; 86900; 86901; 93005; 96361; 96365; 96375; 99285; 71260; 82150; 83735; 84484; 85025; 85610; 93010; 99284; J1170; J2060; J2405; J3010

== ENCOUNTER 2023-02-26 11:07 | Emergency (ER) | payer MEDICARE, MEDICAID, SELFPAY ==
[2023-02-26] VITALS (31 sets, daily range): BP systolic 120–148; BP diastolic 57–105; PULSE 82–108; RESP 7–27; TEMP 36.8; O2SAT 86–100
--- NOTE | 2023-02-26 11:30 | RT.EKG_ITS ---
APPROVED REPORT Exam: Resting ECG Reason for Exam: qtc evaluation Patient Location: E HR:89 bpm ECG Measurements Heart Rate 89 AXIS ND 179 P 40 QRSd 109 QRS 65 QT 366 T 38 QTc 446 Conclusion Sinus rhythm...normal P axis, V-rate 60- 99
--- NOTE | 2023-02-26 11:33 | ED.GENADUL_ITS ---
Discharge Plan Disposition Patient Disposition: Home Condition: Stable Discharge Details Clinical Impression: Abdominal pain Primary Care Provider: Rafi Macedo ED Provider: Andrea Ramires Home Meds and New Rx's Prescriptions: Continued trazodone 100 mg tablet 100 mg PO QHS PRN (Reason: sleep) Qty: 90 0RF venlafaxine 75 mg capsule,extended release 24hr 75 mg PO DAILY Qty: 60 0RF Patient Comments: pt is unsure if he is taking cyanocobalamin (vitamin B-12) [Vitamin B-12] 1,000 mcg tablet 1,000 mcg PO DAILY Qty: 90 3RF Rx Instructions: 08/03/22 per [facility] folic acid 1 mg tablet 1 mg PO DAILY Qty: 90 3RF Patient Comments: pt is unsure if he is taking Rx Instructions: 08/03/22 per [facility] ketoconazole 2 % cream 1 applic topical DAILY Qty: 30 0RF Rx Instructions: 08/03/22 per [facility] quetiapine 200 mg tablet 200 mg PO QHS Qty: 90 3RF pregabalin [Lyrica] 300 mg capsule 300 mg PO TID Qty: 270 3RF naproxen 500 mg tablet 500 mg PO BID Qty: 180 3RF buprenorphine-naloxone [Suboxone] 12-3 mg film 1 film sublingual TID [facility] but has called SHADIA and pt is going to f/u with SHADIA for this rx sucralfate [Carafate] 1 gram tablet 1 g PO BID Qty: 60 0RF famotidine [Pepcid] 20 mg tablet 20 mg PO BID Qty: 30 0RF omeprazole 20 mg capsule,delayed release(DR/EC) 20 mg PO DAILY 56 Days Qty: 56 0RF chlordiazepoxide HCl 25 mg capsule 25 - 50 mg PO Q8H Qty: 12 0RF No Action acamprosate 333 mg tablet,delayed release (DR/EC) 333 mg PO BID Qty: 180 3RF Patient Comments: pt is unsure if he is taking Rx Instructions: administer with mid-day and evening meals Discharge Instructions Additional Instructions: Your ultrasound shows you have gallstones which you've had for awhile. I have placed you on the follow up list to see general surgery to discuss having your gallbladder out as an outpatient continue to refrain from drinking alcohol if you feel more ill, have fevers, or difficulty breathing return to the emergency department Medical Decision Making 62 yo male with hx of prior opioid abuse on buprenorphine, alcohol abuse who states he hasn't drank in 4 days, who comes in with continued abdominal pain and n/v. Was seen in the ED on 02/[address] without significant findings and left on a librium taper for alcohol withdrawal which he says he is finished with. Today he still has pain and n/v so came back. HE denies fevers, chills, chest pain. HE did note he thought his stool looked black today. HE arrives hemodynamically stable speaking clearly, does appear mildly anxious. He has a soft abdomen, states he has tenderness in all quadrants without guarding or rebound, no decker's sign. He has no stool on rectal exam currently but no evidence of black stools on rectal exam. Will obtain cbc, cmp, lipase and treat with droperidol and reassess. Given he just had a CT doubt acute surgical pathology and will hold on imaging at this time. Patient had minimal improvement with droperidol, guiac negative stool, will try toradol. HE is now localizing to the epigastric region, will proceed with u/s to evaluate for possible gallbadder pathology. lipase in the 200's, u/s shows gallstones with no pericholecystic fluid and negative decker's sign, cbc stable so doubt gi bleed. HE feels better and pain has improved, no tenderness on exam now. Discussed results with pt and he feels comfortable with d/c, will place on the referral list to see general surgery, return precautions given Differential Diagnosis Differential Diagnosis: gastritis, pancreatitis, gi bleed Medical Records Medical records reviewed: Yes I reviewed the patient's medical records. Imaging Data Radiologic Study: Attestation: I personally reviewed and interpreted this imaging study as follows: Imaging: Ultrasound Radiologist's impression: Patient Name: Chilango Rdz Unit #: [id number] Loc: ER ? Ordering Provider:? Andrea Ramires M.D. Status: REG ER ? Primary Care Provider: Rafi Macedo DO Date of Exam: 02/26/23 Sex: M ? Admission Date: 02/26/23? : 1960 ? Age: 62 ? Exam(s) US ABDOMEN EXAM:? US ABDOMEN CLINICAL HISTORY:? epigastric pain, ?cholecystitis TECHNIQUE:? Ultrasound abdomen performed using standard protocol. COMPARISON:? US US ABDOMEN LIMITED from 07/05/[address] CHEST/ABD/PEL W from 02/22/2023 FINDINGS: ABDOMINAL AORTA AND IVC: Visualized portions normal caliber.? PANCREAS: Normal where visualized. LIVER: Normal. Hepatopedal flow in the Portal Vein. GALLBLADDER:Gallstones are present.? The gallbladder wall measures up to 5 mm.? However, the gallbladder is contracted limiting evaluation.? No pericholecystic fluid identified.? BILIARY SYSTEM: Common bile duct measures < 7 mm. No intrahepatic biliary ductal dilation. DECKER'S SIGN: Negative. KIDNEYS: Kidneys are symmetric in size. No evidence of renal calculi. No evidence of hydronephrosis. No renal mass or cyst identified. SPLEEN: Not enlarged. ASCITES: None seen. IMPRESSION: 1. Cholelithiasis without definite evidence of acute cholecystitis.? Examination is limited due to the contracted gallbladder. 2. Findings were discussed with Dr. Ramires at 3:29 p.m. on 02/26/2023. Lab Data Lab results reviewed: Yes I reviewed the patient's lab results. ECG Data Attestation: I personally reviewed and interpreted this ECG (s) as follows: Prior ECG tracings: available for review Interpretation: sinus rate of 89, pr 179, no stemi HPI General Mode of arrival: ambulatory . Date/Time Provider Initiated Documentation: 02/26/23 11:09 . Limitations to Documentation: no limitations . Information obtained by: patient . History of Present Illness 62 year old M presents to the emergency department with the chief complaint of abdominal pain, described as moderate, Patient reports no radiation. Patient started experiencing this day(s) (5) and it has been constant. No relieving factors improve symptom(s), No exacerbating factors reported . Patient notes nausea/vomiting; denies chest pain and shortness of breath. Patient did receive the following treatments prior to arrival, none Related Data Home Medications Medication Instructions Recorded Confirmed buprenorphine 12 mg-naloxone 3 mg 1 film sublingual TID 08/10/22 02/22/23 sublingual film (Suboxone) acamprosate 333 mg tablet,delayed 333 mg PO BID #180 tabs 11/01/22 01/28/23 release cyanocobalamin (vitamin B-12) 1,000 mcg PO DAILY #90 tabs 11/01/22 02/22/23 1,000 mcg tablet (Vitamin B-12) folic acid 1 mg tablet 1 mg PO DAILY #90 tabs 11/01/22 01/28/23 ketoconazole 2 % topical cream 1 applic topical DAILY #30 grams 11/01/22 02/22/23 naproxen 500 mg tablet 500 mg PO BID #180 tabs 11/01/22 02/22/23 pregabalin 300 mg capsule (Lyrica) 300 mg PO TID #270 caps 11/01/22 02/22/23 quetiapine 200 mg tablet 200 mg PO QHS #90 tabs 11/01/22 02/22/23 trazodone 100 mg tablet 100 mg PO QHS PRN sleep #90 tabs 01/28/23 02/22/23 venlafaxine 75 mg capsule,extended 75 mg PO DAILY #60 caps 01/28/23 01/28/23 release 24 hr chlordiazepoxide HCl 25 mg capsule 25 - 50 mg PO Q8H #12 caps 02/22/23 famotidine 20 mg tablet (Pepcid) 20 mg PO BID #30 tabs 02/22/23 omeprazole 20 mg capsule,delayed 20 mg PO DAILY 8 weeks #56 caps 02/22/23 release sucralfate 1 gram tablet (Carafate) 1 g PO BID #60 tabs 02/22/23 Previous Rx's Medication Instructions Recorded acamprosate 333 mg tablet,delayed 333 mg PO BID #180 tabs 11/01/22 release cyanocobalamin (vitamin B-12) 1,000 mcg PO DAILY #90 tabs 11/01/22 1,000 mcg tablet (Vitamin B-12) folic acid 1 mg tablet 1 mg PO DAILY #90 tabs 02/23/23 ketoconazole 2 % topical cream 1 applic topical DAILY #30 grams 11/01/22 naproxen 500 mg tablet 500 mg PO BID #180 tabs 11/01/22 pregabalin 300 mg capsule (Lyrica) 300 mg PO TID #270 caps 11/01/22 quetiapine 200 mg tablet 200 mg PO QHS #90 tabs 11/01/22 trazodone 100 mg tablet 100 mg PO QHS PRN sleep #90 tabs 01/28/23 venlafaxine 75 mg capsule,extended 75 mg PO DAILY #60 caps 01/28/23 release 24 hr chlordiazepoxide HCl 25 mg capsule 25 - 50 mg PO Q8H #12 caps 02/22/23 famotidine 20 mg tablet (Pepcid) 20 mg PO BID #30 tabs 02/22/23 omeprazole 20 mg capsule,delayed 20 mg PO DAILY 8 weeks #56 caps 02/22/23 release sucralfate 1 gram tablet (Carafate) 1 g PO BID #60 tabs 02/22/23 Allergies Allergy/AdvReac Type Severity Reaction Status Date / Time No Known Allergies Allergy Verified 02/22/23 09:51 General Stated Complaint: GI Bleed ESTER: 3 Review of Systems All systems reviewed & are unremarkable except as noted in HPI and below Constitutional Constitutional: Denies chills, Denies fever(s) and Denies weakness Cardiovascular Cardiovascular: Denies chest pain and Denies dyspnea Respiratory Respiratory: Denies cough and Denies dyspnea Integumentary/Breasts Skin/Breast: Denies rash Neurologic Neurologic: Denies weakness [facility] All Active Problems (Updated 02/26/23 @ 15:48 by Andrea Ramires MD) Cholelithiasis (Acute) Abdominal pain (Acute) Depression (Chronic) Cubital tunnel syndrome on left (Acute) Cataracts, bilateral (Acute ~08/2022) 08/21/22 [place] - considered Mild updated glasses prescription Cocaine use disorder (Acute) Severe Opioid dependence (Acute) Severe Hypomagnesemia (Acute) Urinary retention (Acute) Dilated bile duct (Acute) Hypokalemia (Acute) Alcoholic pancreatitis (Acute) Alcohol dependence with withdrawal (Acute) Severe Narcotic withdrawal (Acute) Acute gallstone pancreatitis (Acute) Alcohol intoxication (Acute) No-show for appointment (Acute) Arthritis of right glenohumeral joint (Acute) Fracture of right clavicle (Acute) distal clavicle 12/12/21 Varicose veins of both lower extremities (Acute) Hyperglycemia (Acute) Low back pain (Acute) Prostatitis (Acute) Inflammatory disease of liver (Chronic) Atrophic gastritis (Acute) Heart block (Acute) Claustrophobia (Acute) Vitamin D deficiency (Acute) Disorder of endocrine system (Acute) Medical History (Updated 02/26/23 @ 15:48 by Andrea Ramires MD) ADHD Alcoholism Anemia of chronic disease Depressive disorder Essential hypertension GERD (gastroesophageal reflux disease) Gout Psychotic disorder with delusions Tobacco use disorder Type II diabetes mellitus Surgical History History of foot surgery History of tonsillectomy Social History Smoking/Tobacco Use Status: Current every day Tobacco Type: cigarettes Tobacco: How many years used: 48 Quit status: considering quitting Counseling given: support medications Smoking risk assessment performed?: Yes Alcohol Intake: current Alcohol Intake frequency: 3 or more drinks per day Drug use: Daily Substance use type: former substance user, marijuana and crack/cocaine Details: H/O substance abuse - heroin Adopted: No Housing: other Details: [facility] [place] Communication Needs: None current occupation: disabled Pets and animals: No Current gender identity: male What is your relationship status?: don't know How often do you talk on the phone with friends or family?: three or more times per week How often do you get together with friends or relatives?: three or more times per week Panel score (0-1 are the most socially isolated patients): 1 What type of physical activity do you participate in: none Seatbelt use: sometimes Fire extinguisher in home: No Carbon monox detector in home: No Firearms in home: No Do you feel safe at home: Yes Do you feel safe in your relationship?: Yes Exam Const General: no acute distress Orientation: alert HENVT Head: normal to inspection Ears: external ears normal General nose exam: external nose normal Mouth: moist mucous membranes Eyes General: appearance normal, both eyes and all related structures Neck Neck: normal visual inspection Resp Effort & Inspection: normal respiratory effort and able to speak in complete sentences Auscultation: clear to auscultation bilaterally Cardio Jugular venous pressure: no JVD Rate: regular rate Heart Sounds: no murmurs GI Palpation: soft and tender Skin General skin exam: no rashes or lesions noted Neuro General: patient alert and patient oriented x3 Extrem General: normal to inspection Psych Mental Status: mental status grossly normal Course Vital Signs Vital signs: Vital Signs Temperature 36.8 C 02/26/23 11:17 Pulse 105 H 02/26/23 11:17 Respiratory Rate 20 02/26/23 11:17 Blood Pressure 125/105 H 02/26/23 11:17 Pulse Oximetry 98 02/26/23 11:17 Temperature 36.8 C 02/26/23 11:17 Temperature Source Skin 02/26/23 11:17 Pulse 105 H 02/26/23 11:17 Respiratory Rate 02/26/23 11:17 Blood Pressure 125/105 H 02/26/23 11:17 Blood Pressure Position Sitting 02/26/23 11:17 Pulse Oximetry 98 02/26/23 11:17 Oxygen Delivery Method Room Air 02/26/23 11:17 Oxygen Flow Rate 0 02/26/23 11:17 Pain Level 10 02/26/23 11:17
[2023-02-26 12:25] LABS: Abs Immature Grans 0.01 10^3/uL (0.0-0.06); Absolute Basophil Count 0.02 10^3/uL (0.0-0.2); Absolute Eosinophil Count 0.11 10^3/uL (0.0-0.7); Absolute Lymphocyte Count 0.87 10^3/uL (1.2-3.4); Absolute Monocyte Count 0.52 10^3/uL (0.1-0.8); Absolute Neutrophil Count 5.01 10^3/uL (1.2-6.7); Basophils % 0.3; Eosinophils % 1.7; HCT 44.6 % (40.0-50.0); HGB 15.9 g/dL (13.5-17.5); Immature Grans % 0.2; Lymphocytes % 13.3; MCH 30.2 pg (27.0-33.0); MCHC 35.7 % (32.0-36.0); MCV 85 fL (80-95); MPV 9.3 fL (8.0-11.0); Neutrophils % 76.5; Platelet Count 151 10^3/uL (130-400); RBC 5.27 10^6/uL (4.36-5.78); RDW 13.2 % (11.8-14.1); RDW-SD 40.9 fL; WBC 6.54 10^3/uL (4.4-10.8)
[2023-02-26] MEDS: Droperidol 5 MG/2 ML VIAL IVP (12:31)
[2023-02-26] MEDS: Normal Saline 1,000 ML 1000 ML IV (12:31)
[2023-02-26 12:42] LABS: ALT 24 U/L (16-63); AST 22 U/L (15-37); Albumin 3.8 g/dL (3.4-5.0); Alkaline Phosphatase 99 U/L (46-116); Anion Gap 6.4 mmol/L (3-11); BUN 14 mg/dL (7-18); Bilirubin, Direct 0.2 mg/dL (0.0-0.2); Bilirubin, Total 0.9 mg/dL (0.2-1.0); CO2 29.6 mmol/L (21.0-32.0); CREATININE 0.8 mg/dL (0.70-1.30); Calcium 9.3 mg/dL (8.5-10.1); Chloride 103 mmol/L (98-107); Estimated GFR 100.06 (mL/min/1.73m2); Glucose 130 mg/dL (74-106); Lipase 207 U/L (16-77); Potassium 4.4 mmol/L (3.5-5.1); Sodium 139 mmol/L (136-145)
[2023-02-26 12:48] LABS: ETHANOL BLOOD < 3.0 mg/dL (<10)
[2023-02-26 12:59] LABS: PTT Activated 25.2 sec (21.5-31.9); Prothrombin Time 10.6 sec (9.3-11.0)
[2023-02-26 13:18] LABS: Bilirubin Small (Negative); Blood Trace-intact (Negative); Clarity Clear (Clear); Glucose Negative (Negative); Ketones 40 mg/dL (Negative); Leukocyte Esterase Negative (Negative); Nitrite Negative (Negative); pH 8.5 (5-8)
[2023-02-26 13:23] LABS: *AMPHETAMINES SCREEN URINE Negative (Negative); *BARBITURATES SCREEN URINE Negative (Negative); *BENZODIAZEPINES SCREEN URINE Positive (Negative); Bacteria Rare HPF (Negative); C & S Indicated? No; Cannabinoids THC Positive (Negative); Casts 0-2 Coarse Granular LPF (Negative); Cocaine Screen,Urine Negative (Negative); Crystals Negative HPF (Negative); Epithelial Cells Few HPF (Negative); METHADONE URINE SCREEN Negative (Negative); Mucus Heavy (Negative); OPIATES URINE SCREEN Negative (Negative); WBC 0-2 HPF (0-5)
[2023-02-26 13:26] LABS: Tricyclic Antidepressants Negative (Negative)
--- NOTE | 2023-02-26 14:15 | DI.US_ITS ---
Exam(s) US ABDOMEN EXAM: US ABDOMEN CLINICAL HISTORY: epigastric pain, ?cholecystitis TECHNIQUE: Ultrasound abdomen performed using standard protocol. COMPARISON: US US ABDOMEN LIMITED from 07/05/[address] CHEST/ABD/PEL W from 02/22/2023 FINDINGS: ABDOMINAL AORTA AND IVC: Visualized portions normal caliber. PANCREAS: Normal where visualized. LIVER: Normal. Hepatopedal flow in the Portal Vein. GALLBLADDER:Gallstones are present. The gallbladder wall measures up to 5 mm. However, the gallblad tory is contracted limiting evaluation. No pericholecystic fluid identified. BILIARY SYSTEM: Common bile duct measures < 7 mm. No intrahepatic biliary ductal dilation. DECKER'S SIGN: Negative. KIDNEYS: Kidneys are symmetric in size. No evidence of renal calculi. No evidence of hydronephrosis. No renal mass or cyst identified. SPLEEN: Not enlarged. ASCITES: None seen. IMPRESSION: 1. Cholelithiasis without definite evidence of acute cholecystitis. Examination is limited due to th e contracted gallbladder. 2. Findings were discussed with Dr. Ramires at 3:29 p.m. on 02/26/2023. DATA REPOSITORY:
[2023-02-26] MEDS: Ketorolac 15 MG/ML VIAL IVP (14:24)
[2023-02-26 14:41] LABS: HGB 15.3 g/dL (13.5-17.5); MCH 30.5 pg (27.0-33.0); MCHC 35.6 % (32.0-36.0); MCV 86 fL (80-95); MPV 9.2 fL (8.0-11.0); Platelet Count 134 10^3/uL (130-400); RBC 5.02 10^6/uL (4.36-5.78); RDW 13.2 % (11.8-14.1); RDW-SD 41.2 fL; WBC 6.84 10^3/uL (4.4-10.8)
--- NOTE | 2023-02-26 15:52 | NUR.NOTE ---
Nursing Note:referral to general surgery
== END 2023-02-26 16:05 | disposition home or self-care (01) ==
PROVIDERS: Emergency Provider Emergency Medicine; PCP Family Medicine
DX: R10.9 Unspecified abdominal pain (principal); F11.20 Opioid dependence, uncomplicated; F10.10 Alcohol abuse, uncomplicated
CPT/HCPCS: 36415; 80053; 80307; 83690; 85027; 93005; 96361; 96374; 96375; 99284; 76700; 80320; 81003; 81015; 82248; 83735; 85025; 85610; 85730; 93010; J1790; J1885

== ENCOUNTER → 2023-03-13 07:25 | Outpatient (BNVA) | payer MEDICARE, MEDICAID, SELFPAY | PROVIDERS: PCP Family Medicine; Referring Provider Family Medicine; Visit Provider Surgery | DX: R10.13 Epigastric pain (principal) | CPT/HCPCS: 99213 ==

== ENCOUNTER 2023-03-18 10:33 | Day surgery (SDC) | payer MEDICARE, MEDICAID, SELFPAY ==
--- NOTE | 2023-03-17 11:08 | W.PM.DSUDISC ---
Date of service: 03/18/23 Time of Service: 12:40 Discharge Plan Disposition Patient Disposition: Home Condition: Good Discharge Details Reason For Visit: Colonoscopy and EGD Attending Provider: Luiz Rodriguez Primary Care Provider: Rafi Macedo Home Meds and New Rx's Prescriptions: Continued acamprosate 333 mg tablet,delayed release (DR/EC) 333 mg PO BID Qty: 180 3RF Patient Comments: pt is unsure if he is taking Rx Instructions: administer with mid-day and evening meals cyanocobalamin (vitamin B-12) [Vitamin B-12] 1,000 mcg tablet 1,000 mcg PO DAILY Qty: 90 3RF Rx Instructions: 08/03/22 per [facility] folic acid 1 mg tablet 1 mg PO DAILY Qty: 90 3RF Patient Comments: pt is unsure if he is taking Rx Instructions: 08/03/22 per [facility] ketoconazole 2 % cream 1 applic topical DAILY Qty: 30 0RF Rx Instructions: 08/03/22 per [facility] quetiapine 200 mg tablet 200 mg PO QHS Qty: 90 3RF pregabalin [Lyrica] 300 mg capsule 300 mg PO TID Qty: 270 3RF naproxen 500 mg tablet 500 mg PO BID Qty: 180 3RF Hold Instructions: Changed by Provider Patient Comments: pt states no longer taking omeprazole 20 mg capsule,delayed release(DR/EC) 20 mg PO BID Qty: 180 0RF Rx Instructions: Take 20 mg twice daily on an empty stomach at least 30 minutes before meals trazodone 100 mg tablet 100 mg PO QHS PRN (Reason: sleep) Qty: 90 0RF acetaminophen 500 mg tablet 500 - 1,000 mg PO BID MDD 2000 mg PRN (Reason: pain) Qty: 180 3RF sucralfate [Carafate] 1 gram tablet 1 g PO QACHS PRN (Reason: reflux or gastric pain) Qty: 120 1RF Rx Instructions: Trial with meals and qHS as needed if PPI increase not enough chlordiazepoxide HCl 25 mg capsule 25 - 50 mg PO Q8H Qty: 12 0RF buprenorphine-naloxone [Suboxone] 8-2 mg film 1 film sublingual TID venlafaxine 75 mg capsule,extended release 24hr 75 mg PO DAILY Patient Comments: TAKE ONE CAPSULE BY MOUTH EVERY DAY Discontinued polyethylene glycol 3350 17 gram/dose powder 238 g PO ONCE Qty: 238 0RF Rx Instructions: take per colonoscopy instructions bisacodyl [Dulcolax (bisacodyl)] 5 mg tablet,delayed release (DR/EC) 5 mg PO ONCE Qty: 4 0RF Rx Instructions: take per colonoscopy instructions Discharge Instructions Additional Instructions: Ashish, we were able to complete your upper and lower endoscopy today without any difficulty. The quality of your prep was great. We had great visualization. I did not see anything out of the ordinary in the upper endoscopy, or the lower 1. I did perform some biopsies of your stomach to rule out Helicobacter pylori as a source of your pain. It will take a week or 2 to get the results of that. If they are negative, then we can give stronger consideration to removal of your gallbladder in an effort to minimize your abdominal discomfort. I will be in touch when I have the results of the biopsies. 1. If tolerated, consume a soft, low fiber diet for 1-2 days. [address] Do not drive, drink alcohol, operate machinery, make critical decisions, or do activities that require coordination or balance for 24 hours. 3. Because air was put into your colon during the procedure, expelling air from your rectum (passing gas or farting) is normal. 4. You may not have a bowel movement for 1-3 days because of the colonoscopy prep. This is normal. 5. You may experience a sore throat for 24 to 48 hours. You may use throat lozenges or gargle with warm salt water to relieve the discomfort. 6. Because air was put into your stomach during the procedure, you may experience some belching. 7. Go directly to the emergency room if you notice any of the following: Develop chills (warm to touch), or if you have a thermometer and your temperature is above 101 Difficulty breathing or difficultly swallowing Persistent vomiting Severe abdominal pain, other than gas cramps Severe chest pain Black, tarry stools Any bleeding ? exceeding one tablespoon 8. Call your physician if the site where your intravenous was started becomes red, swollen, painful, and warm to touch. 9. Your physician has reviewed your pre-procedure medications. Please continue to take those medications as previously ordered. You will be given specific information/education regarding any changes to your medications before leaving. Activity:: Activity as Tolerated Diet:: As Tolerated Discharge Orders Discharge Orders: Discharge Order (Routine); Ordered 03/17/23 Ordered By: Luiz Rodriguez DS: Diagnosis Discharge Diagnosis (1) Screen for colon cancer: Status: Acute Asessment and Plan: Negative EGD and colonoscopy
--- NOTE | 2023-03-17 11:10 | W.PM.ENDDOP ---
Date of service: 03/18/23 Time of Service: 12:42 Endoscopy Report DATE OF PROCEDURE: 03/18/23 PRE-OP DIAGNOSIS: Screening EGD and colonoscopy POST-OP DIAGNOSIS: other (Negative screening EGD, negative screening colonoscopy) PROCEDURE: EGD and colonoscopy SURGEON: Luiz Rodriguez ANESTHESIA TYPE: General:No Airway ESTIMATED BLOOD LOSS: 10 PATHOLOGY: other (Duodenal biopsies, gastric antral biopsies, gastric body biopsies, biopsies of GE junction) COMPLICATIONS: None DISPOSITION: same day INDICATIONS: Chilango is a 62-year-old male with longstanding severe alcoholism and other risk factors for Diez's esophagus. Additionally, he needs a screening colonoscopy PREP: Miralax/Dulcolax PROCEDURE START TIME: 11:53 PROCEDURE END TIME: 12:23 COLONOSCOPY RETRACTION TIME: 14 FINDINGS: Negative EGD; negative colonoscopy PROCEDURE DESCRIPTION: After the initiation of monitored anesthetic care, and with the assistance of a bite block, I advanced a standard gastroscope through the mouth past the hypopharynx and into the esophagus.? Under the direct vision of the scope, I advanced down the esophagus into the stomach.? Once I entered the stomach, I performed a brief inspection, followed by retroflexion towards the gastric cardia.? This appeared normal.? After that, I gently advanced the scope around the incisura angularis and examined the pylorus.? This also appeared normal.? Next, I advanced the scope through the pylorus into the duodenum.? The mucosa was pink and healthy appearing.? There were no abnormalities.? I was able to visualize bile draining into the duodenum through the ampulla Vater. ?I perform random biopsies of the duodenum. Next, I began retracting the endoscope.? I brought the camera back into the stomach and perform random biopsies of the gastric antrum and gastric body. Again, examine the mucosa of the stomach which appeared normal. I then gently desufflated some of the stomach, and withdrew the endoscope into the distal esophagus. The GE junction was 38 cm from the incisors. The Z-line was regular and normal-appearing. ?Finally, I withdrew the scope along the length of the esophagus taking great care to examine the entirety of the mucosa.? I did not appreciate any abnormalities. After the induction of monitored anesthetic care, and with the patient in left lateral decubitus position, I began by performing an external anorectal exam.? Perineum and skin were normal, as was the anal verge.? There was no evidence of external hemorrhoids.? Next, I performed a digital rectal exam.? I did not appreciate any abnormal findings.? Next, I advanced a colonoscope into the rectal vault.? I performed retroflexion.? This appeared normal.? Using insufflation, I then advanced the colonoscope beyond the rectal folds and into the sigmoid colon before advancing towards the cecum.? The quality of the prep was adequate.? The scope was noted to be in the cecum by identification of the ileocecal valve and appendiceal orifice.? I then began withdrawing the colonoscope using repeated irrigation as necessary for full evaluation of the colonic mucosa. ?Once the scope was withdrawn to the level of the rectum, great care was taken to examine portions of the rectal folds.? Did not see any signs of tumors or polyps. Finally, the scope was withdrawn and the patient was brought to the same-day surgery recovery unit as the anesthetic wore off. ?The findings and instructions were shared with the patient prior to discharge.
[2023-03-18] VITALS (8 sets, daily range): BP systolic 79–139; BP diastolic 54–95; PULSE 72–97; RESP 11–21; TEMP 36.3–37; O2SAT 90–98; BMI 31.7
[2023-03-18] MEDS: Lactated Ringers 1,000 ML 80 ML IV (11:25)
--- NOTE | 2023-03-18 11:28 | W.ANESPRE ---
General Info Date of Service Date Performed: 03/18/23 Height: 5 ft 6 in Weight: 89.3 kg Body Mass Index (BMI): 31.7 Surgical Procedure: Operation Date: 03/18/23 12:05 Proposed Procedure Side Surgeon p Colonoscopy/Gastroscopy Luiz Rodriguez MD Actual Procedure Side Surgeon p Colonoscopy/Gastroscopy Not Applicable Luiz Rodriguez MD Pre-Op Diagnosis Post-Op Diagnosis Colonoscopy and EGD Meds Allergies and Home Medications Allergies Allergy/AdvReac Type Severity Reaction Status Date / Time No Known Allergies Allergy Verified 03/13/23 07:32 Home Medication Medication Instructions Recorded acamprosate 333 mg tablet,delayed 333 mg PO BID #180 tabs 11/01/22 release cyanocobalamin (vitamin B-12) 1,000 mcg PO DAILY #90 tabs 11/01/22 1,000 mcg tablet (Vitamin B-12) folic acid 1 mg tablet 1 mg PO DAILY #90 tabs 11/01/22 ketoconazole 2 % topical cream 1 applic topical DAILY #30 grams 11/01/22 naproxen 500 mg tablet 500 mg PO BID #180 tabs 11/01/22 pregabalin 300 mg capsule (Lyrica) 300 mg PO TID #270 caps 11/01/22 quetiapine 200 mg tablet 200 mg PO QHS #90 tabs 11/01/22 chlordiazepoxide HCl 25 mg capsule 25 - 50 mg PO Q8H #12 caps 02/22/23 acetaminophen 500 mg tablet 500 - 1,000 mg PO BID PRN pain 03/06/23 #180 tab-caps omeprazole 20 mg capsule,delayed 20 mg PO BID #180 caps 03/06/23 release trazodone 100 mg tablet 100 mg PO QHS PRN sleep #90 tabs 03/06/23 sucralfate 1 gram tablet (Carafate) 1 g PO QACHS PRN reflux or gastric 03/09/23 pain #120 tabs buprenorphine 8 mg-naloxone 2 mg 1 film sublingual TID 03/18/23 sublingual film (Suboxone) venlafaxine 75 mg capsule,extended 75 mg PO DAILY 03/18/23 release 24 hr Current Visit Medications: Current Medications Generic Name Dose Route Start Last Admin Trade Name Freq PRN Reason Stop Dose Admin Hyoscyamine Sulfate 0.125 mg 03/17/23 11:11 Hyoscyamine 0.125 Mg Sl/Oral/Chew SL 04/16/23 11:10 DIRECTED PRN Ringer's Solution 1,000 mls @ 80 mls/hr 03/18/23 06:00 IV 04/14/23 23:59 INFUSION GRANT IV Miscellaneous Supplies 1 each 03/18/23 06:00 Iv Access IV 04/14/23 23:59 DIRECTED GRANT Ondansetron HCl 4 mg 03/17/23 11:11 Ondansetron 4 Mg/2 Ml Vial IVP 04/16/23 11:10 Q4H PRN PRN Nausea / Vomiting Sodium Chloride 0 ml 03/18/23 06:00 Normal Saline Flush 10 Ml Syr IV 04/14/23 23:59 PRN PRN Sodium Chloride 0 ml 03/18/23 06:00 Normal Saline 10 Ml Vial IJ 04/14/23 23:59 DIRECTED PRN Sterile Water 0 ml 03/18/23 06:00 Water,Injection,Sterile 10 Ml Vial IJ 04/14/23 23:59 DIRECTED PRN PFSH Active Problems Active Problems: Problem Status Onset Code Screen for colon cancer Z12.11 History of melena Z87.19 Cholelithiasis K80.20 Abdominal pain R10.9 Depression F32.A Cubital tunnel syndrome on left G56.22 Cataracts, bilateral ~08/2022 H26.9 Cocaine use disorder F14.10 Opioid dependence F11.20 Hypomagnesemia E83.42 Urinary retention R33.9 Dilated bile duct K83.8 Hypokalemia E87.6 Alcoholic pancreatitis K85.20 Alcohol dependence with withdrawal F10.239 Narcotic withdrawal F11.93 Acute gallstone pancreatitis K85.10 Alcohol intoxication F10.929 No-show for appointment Z53.29 Arthritis of right glenohumeral joint M19.011 Fracture of right clavicle S42.001A Nausea R11.0 Varicose veins of both lower extremities I83.93 Hyperglycemia R73.9 Low back pain M54.5 Prostatitis N41.9 Inflammatory disease of liver K75.9 Atrophic gastritis K29.40 Heart block I45.9 Claustrophobia F40.240 Vitamin D deficiency E55.9 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 Medical History Medical History ADHD Alcoholism Anemia of chronic disease Depressive disorder Essential hypertension GERD (gastroesophageal reflux disease) Gout Psychotic disorder with delusions Tobacco use disorder Type II diabetes mellitus Surgical History Surgical History History of foot surgery History of tonsillectomy Tobacco Smoking/Tobacco Use Status: Current every day Tobacco Type: cigarettes Counseling given: support medications Alcohol Alcohol Intake: current Alcohol intake frequency: 3 or more drinks per day Substance Use Substance use: Daily Substance use type: former substance user, marijuana and crack/cocaine Details: H/O substance abuse - heroin current marijuana user, last inhaled t-4 cocaine user, pt reports last use a month ago, and uses about once a month Vital Signs and Lab Results Vital Signs Most Recent Vital Signs in EMR: Most Recent Vital Signs Temp Pulse Resp BP Pulse Ox 37 C 97 H 16 139/95 H 97 03/18/23 10:36 03/18/23 10:36 03/18/23 10:36 03/18/23 10:36 03/18/23 10:36 Lab Results Blood Type / Crossmatch: Patient ABO/Rh A Positive 02/22/23 Antibody Screen NEGATIVE 02/22/23 Complete Blood Count: White Blood Count 6.84 10^3/uL (4.4-10.8) 02/26/23 14:30 Red Blood Count 5.02 10^6/uL (4.36-5.78) 02/26/23 14:30 Hemoglobin 15.3 g/dL (13.5-17.5) 02/26/23 14:30 Hematocrit 43.0 % (40.0-50.0) 02/26/23 14:30 Platelet Count 134 10^3/uL (130-400) 02/26/23 14:30 Complete Metabolic Panel: Sodium 139 mmol/L (136-145) 02/26/23 12:16 Potassium 4.4 mmol/L (3.5-5.1) 02/26/23 12:16 Chloride 103 mmol/L (98-107) 02/26/23 12:16 Carbon Dioxide 29.6 mmol/L (21.0-32.0) 02/26/23 12:16 BUN 14 mg/dL (7-18) 02/26/23 12:16 Creatinine 0.8 mg/dL (0.70-1.30) 02/26/23 12:16 Est GFR (CKD-EPI 2020) 100.06 (mL/min/1.73m2) 02/26/23 12:16 Magnesium 2.0 mg/dL (1.8-2.4) 02/26/23 12:16 Calcium 9.3 mg/dL (8.5-10.1) 02/26/23 12:16 Albumin 3.8 g/dL (3.4-5.0) 02/26/23 12:16 Glucose 130 mg/dL (74-106) H 02/26/23 12:16 Liver Function Panel: Alanine Aminotransferase (ALT/SGPT) 24 U/L (16-63) 02/26/23 12:16 Aspartate Amino Transf (AST/SGOT) 22 U/L (15-37) 02/26/23 12:16 Coagulation Panel: INR International Normalized Ratio 1.0 (0.9-1.1) 02/26/23 12:16 Prothrombin Time 10.6 sec (9.3-11.0) 02/26/23 12:16 Activated Partial Thromboplast Time 25.2 sec (21.5-31.9) 02/26/23 12:16 Cardiac Panel: Troponin I < 50 ng/L (<or=60) 02/22/23 Arterial Blood Gas: No Data to Display Venous Blood Gas: No Data to Display Pancreas Panel: Amylase Level 64 U/L (25-115) 02/22/23 10:14 Lipase 207 U/L (16-77) H 02/26/23 12:16 Thyroid Panel: No Data to Display Infectious Disease: No Data to Display Blood Cultures: No Data to Display Toxicology Panel: Ethyl Alcohol Level < 3.0 mg/dL (<10) 02/26/23 12:16 Urine Amphetamines Screen Negative (Negative) 02/26/23 13:00 Urine Benzodiazepines Screen Positive (Negative) A 02/26/23 13:00 Urine Barbiturates Screen Negative (Negative) 02/26/23 13:00 Urine Cocaine Screen Negative (Negative) 02/26/23 13:00 Urine Methadone Screen Negative (Negative) 02/26/23 13:00 Urine Opiates Screen Negative (Negative) 02/26/23 13:00 Ur Tricyclic Antidepressants Screen Negative (Negative) 02/26/23 13:00 Ur Tetrahydrocannabinol (THC) Scrn Positive (Negative) A 02/26/23 13:00 Imaging and Studies Imaging and Studies Study information below may be from another EMR and interpreted by another provider. Please see original notes in EMR for more complete details. EKG Summary: Conclusion Sinus rhythm...normal P axis, V-rate 60- 99 02/26/23 Anesthesia Assessment and Plan Anesthesia History Personal History: No History of Anesthesia Complications Family History: No Family History of Anesthesia Complications Exercise Tolerance Exercise Tolerance: Metabolic Equivalents>4 Pertinent Negatives Pertinent Negatives: No Major Cardiovascular Symptoms or Complaints and No Major Pulmonary Symptoms or Complaints Cardiac & Pulmonary Exam Cardiac Exam: Normal S1/S2 Heart Sounds Pulmonary Exam: Clear Bilateral Breath Sounds Cardiac and Pulmonary Comment:: Smoker, gets some BARNETT Implantable Cardiac Device Does patient have a Pacemaker or an ICD?: No Airway Exam Known Difficult Airway: No Mallampati Class: 1 Mouth Opening: Normal (> 3cm) Thyromental Distance: Greater than 3 cm Neck Range of Motion: Full ROM Neck Circumference: Normal Teeth Condition: Edentulous ASA Classification ASA Score: ASA 2 Emergency Case?: No NPO Status NPO Status: NPO Clears >2 hours, Solids >8 hours Anesthesia Plan Resuscitation Status: Full Code Anesthesia Technique: General Anesthesia Airway Planned: Natural Airway Monitors Used: Standard Monitors
--- NOTE | 2023-03-18 12:00 | STOM_PTH ---
PATIENT: Chilango Rdz LOC: [facility] U#:[id number] AGE/SX: 62/M ROOM: RE03/18/[address]: Luiz Rodriguez MD : 1960 BED: DIS: 03/18/2023 SPEC #: [id number] RECD: 03/18/23 13:07 STATUS: ANICETO REQ #: [id number] PRANAV: 03/18/23 12:[address]: Luiz Rodriguez DEPT: Surgical Specimen RECD BY: Maryse Haines ENTERED: 03/18/23 13:07 SP TYPE: STOMACH OTHR DR: Rafi Macedo DO Tissues: 1 - BIOPSY BOWEL 2 - STOMACH BIOPSY 3 - STOMACH BIOPSY 4 - ESOPHAGUS BIOPSY Procedures: GROSS AND MICRO LEVEL 4 Comments: [id number]
[2023-03-18] MEDS: ePHEDrine 25 MG/5 ML Syringe IVP ×2 (12:40→12:51)
--- NOTE | 2023-03-18 13:13 | W.ANESPOSTOP ---
Postoperative Evaluation Date, Time and Location Date Performed: 03/18/23 Time Performed: 13:13 Patient Location: Day Surgery Unit Vital Signs Most Recent Imported Vital Signs: Most Recent Vital Signs Temp Pulse Resp BP Pulse Ox 36.7 C 84 18 106/72 98 03/18/23 12:58 03/18/23 12:58 03/18/23 12:58 03/18/23 12:58 03/18/23 12:58 Pain Score Most Recent Pain Score: Most Recent Pain Score Pain Level 0 03/18/23 12:58 Assessment Mental Status: Awake (Alert & Oriented to Patient Baseline) Airway and Respiratory Function: Patent airway with normal (patient baseline) respiratory exam Cardiovascular Function: Hemodynamically Stable Hydration Status: Adequately Hydrated Nausea & Vomiting: No Nausea or Vomiting Pain: Pt. Denies Any Pain Peripheral Nerve Block: Patient did not receive a nerve block
== END 2023-03-18 13:58 | disposition home or self-care (01) ==
PROVIDERS: PCP Family Medicine; Visit Provider Surgery
PROC: (CPT 43239; principal; 2023-03-18 12:00)
DX: Z12.11 Encounter for screening for malignant neoplasm of colon (principal); R10.9 Unspecified abdominal pain; E11.9 Type 2 diabetes mellitus without complications; E55.9 Vitamin D deficiency, unspecified; F10.20 Alcohol dependence, uncomplicated
CPT/HCPCS: 43239; G0121; 88305; J2001

== ENCOUNTER 2023-03-25 04:23 | Outpatient (CLI) | payer MEDICARE, MEDICAID, SELFPAY ==
[2023-03-25 09:43] LABS: Anion Gap 5.7 mmol/L (3-11); BUN 15 mg/dL (7-18); CO2 28.3 mmol/L (21.0-32.0); CREATININE 1.1 mg/dL (0.70-1.30); Calcium 9.2 mg/dL (8.5-10.1); Chloride 101 mmol/L (98-107); Glucose 154 mg/dL (74-106); Lipase 44 U/L (16-77); Sodium 135 mmol/L (136-145)
== END 2023-03-25 04:24 | disposition home or self-care (01) ==
LOC: LBO 04:23
PROVIDERS: Absent Provider Student in an Organized Health Care Education/Training Program; PCP Family Medicine; Visit Provider Student in an Organized Health Care Education/Training Program
DX: E87.8 Other disorders of electrolyte and fluid balance, not elsewhere classified (principal); R74.8 Abnormal levels of other serum enzymes; R89.9 Unspecified abnormal finding in specimens from other organs, systems and tissues
CPT/HCPCS: 36415; 80048; 83690

== ENCOUNTER → 2023-04-10 10:02 | Outpatient (BNVA) | payer MEDICARE, MEDICAID, SELFPAY | PROVIDERS: PCP Family Medicine; Referring Provider Family Medicine; Visit Provider Surgery | DX: Z48.815 Encounter for surgical aftercare following surgery on the digestive system (principal) | CPT/HCPCS: 99214 ==

== ENCOUNTER → 2023-08-15 01:48 | Outpatient (CLI) | payer MEDICARE, MEDICAID, SELFPAY ==
--- NOTE | 2023-08-15 07:15 | DI.MRI_ITS ---
Exam(s) MR LOWER EXTREMITY RT WO/W EXAM: MR LOWER EXTREMITY RT WO/W CLINICAL HISTORY: Deep cellulitis,? osteomyelitis,l03.115. TECHNIQUE: Multiplanar multisequence MRI was performed. CONTRAST MATERIAL: IV Contrast: 17 mL of Dotarem contrast administered. COMPARISON: Exam interpreted without benefit of comparison plain films. FINDINGS: BONES/JOINTS: No evidence of fracture. No evidence of bone lesion. No abnormal enhancement. Ankle u nremarkable as visualized. Visualized tendons are unremarkable. Muscles: No muscle edema. No abnormal enhancement. SOFT TISSUES: Edema in the subcutaneous fat. No focal collection. IMPRESSION: Edema in the subcutaneous fat. No drainable collection. No evidence muscle edema or abnormal enhanc ement. No bony abnormalities. DATA REPOSITORY:
[2023-08-15 09:05] LABS: CREATININE 0.7 mg/dL (0.70-1.30); Estimated GFR 104.18 (mL/min/1.73m2)
[2023-08-15] MEDS: Gadoterate meglumine 20 ML SYRINGE IVP (09:43)
[2023-08-15] MEDS: Normal Saline Flush 10 ML SYR IVP (09:46)
== END ==
PROVIDERS: PCP Family Medicine; Visit Provider Family Medicine
DX: L03.115 Cellulitis of right lower limb (principal)
CPT/HCPCS: 73720; 82565

== ENCOUNTER 2024-01-20 04:59 | Outpatient (CLI) | payer MEDICARE, MEDICAID, SELFPAY ==
[2024-01-21 13:58] LABS: Hepatitis C Ab w Rflx HCV PCR Reactive (Negative)
[2024-01-22 13:27] LABS: HCV RNA Qualitative Undetected (Undetected)
== END 2024-01-20 05:00 | disposition home or self-care (01) ==
LOC: LBO 04:59
PROVIDERS: PCP Family Medicine; Referring Provider Family Medicine; Visit Provider Family Medicine
DX: K76.89 Other specified diseases of liver; Z86.19 Personal history of other infectious and parasitic diseases
CPT/HCPCS: 36415; 86803; 87522

== ENCOUNTER → 2024-03-10 13:01 | Outpatient (BNVA) | payer MEDICARE, MEDICAID, SELFPAY | PROVIDERS: PCP Family Medicine; Referring Provider Family Medicine; Visit Provider Surgery | DX: K82.9 Disease of gallbladder, unspecified (principal) | CPT/HCPCS: 99214 ==

== ENCOUNTER → 2024-04-06 01:06 | Outpatient (CLI) | payer MEDICARE, MEDICAID, SELFPAY ==
--- NOTE | 2024-04-06 06:30 | DI.MRI_ITS ---
Exam(s) MR UPPER JOINT RT WO EXAM: MR UPPER JOINT RT WO CLINICAL HISTORY: Painful R shoulder,fx glenoid cavity,arthritis rt glenohumeral joint,. TECHNIQUE: Multiplanar multisequence MRI was performed. COMPARISON: Most recent plain films available for comparison are dated 02 January 2022 FINDINGS: BONES: There is no fracture or contusion pattern. Degenerative signal changes in humeral head. Deg enerative cysts. Artifact is created by the screws in the inferior glenoid. JOINTS:The acromioclavicular joint is shows mild degenerative changes. Mild inferior spurring. Reyna re degenerative changes of the glenohumeral joint. Cartilage thinning extending down to bone. High signal in the underlying bone. Joint partially obscured by artifact. Small joint effusion and multi ple joint space loose bodies. TENDONS: Supraspinatus: Unremarkable. Infraspinatus: Unremarkable. Subscapularis: Unremarkable. Teres Minor: Unremarkable. Biceps and Pelham: Unremarkable. MUSCLES: Unremarkable. GLENOID LABRUM: Unremarkable on this noncontrast examination. SOFT TISSUES: Unremarkable. OTHER: Subacromial and subdeltoid bursae shows no significant fluid.. IMPRESSION: Exam somewhat limited by artifact from screws in the glenoid. End-stage degenerative changes of the glenohumeral joint. Small joint effusion and multiple joint sp carl loose bodies. No tendon tear identified DATA REPOSITORY:
== END ==
PROVIDERS: PCP Family Medicine; Visit Provider Family Medicine
DX: M25.511 Pain in right shoulder (principal); M25.411 Effusion, right shoulder; M19.011 Primary osteoarthritis, right shoulder; M24.011 Loose body in right shoulder; S42.141D Displaced fracture of glenoid cavity of scapula, right shoulder, subsequent encounter for fracture with routine healing
CPT/HCPCS: 73221

== ENCOUNTER 2024-11-23 01:09 | Outpatient (CLI) | payer MEDICARE, MEDICAID, SELFPAY ==
--- NOTE | 2024-11-23 06:45 | DI.MRI_ITS ---
Exam(s) MR LUMBAR SPINE WO EXAM: MR LUMBAR SPINE WO CLINICAL HISTORY: Chronic back pain,low back pain,m54.5. TECHNIQUE: Multiplanar multisequence MRI of the Lumbar spine was performed. COMPARISON: CT CT CHEST/ABD/PEL W from 02/22/2023 FINDINGS: Bones: The last intervertebral disc space is designated the L5/S1 level for the numbering purpose of this ex amination. The vertebral body heights are well maintained. Alignment: Mild spondylolisthesis at L4-5 secondary to prominent facet degenerative changes. The marrow signal characteristics are unremarkable. Cord: The conus tip ends at the T12 L1 level. It is of normal size and signal intensity. T12-L1: Mild loss of height. Concentric disc bulging. Endplate osteophytes. No focal disc herniati on is present. No central spinal canal stenosis.No neural foraminal stenosis. L1-2:Mild loss of disc height. Concentric disc osteophytes. Facet degenerative changes. No focal d isc herniation is present. No central spinal canal stenosis. Moderate neural foraminal stenosis. L2-3:Mild disc bulging. Normal disc height. Mild facet degenerative changes. No focal disc herniat ion is present. No central spinal canal stenosis.No neural foraminal stenosis. L3-4: Normal disc height. Mild disc bulging. Prominent facet degenerative changes and ligamentous h ypertrophy..No focal disc herniation is present. Moderate central spinal canal stenosis.Moderate bi lateral neural foraminal stenosis. L4-5:Disc height is maintained. Mild concentric disc bulging. Severe facet degenerative changes. N o focal disc herniation is present. Severe central spinal canal stenosis.Moderate to severe bilatera l neural foraminal stenosis. L5-S1: Moderate to severe loss of disc height. No focal disc herniation is present. Prominent facet degenerative changes causing mild spondylolisthesis. No central spinal canal stenosis. Severe rig ht and mild left neural foraminal stenosis. The visualized SI joints and sacrum are unremarkable. Soft tissues: The paraspinal soft tissues are unremarkable. IMPRESSION: Moderate central canal stenosis at L3-4 and severe central canal stenosis at L4-5 mainly secondary to facet degenerative changes and ligamentous hypertrophy. Multilevel bilateral neural foraminal narro wing. DATA REPOSITORY:
== END 2024-11-23 01:29 ==
LOC: DI 01:09
PROVIDERS: PCP Family Medicine; Visit Provider Family Medicine
DX: M17.11 Unilateral primary osteoarthritis, right knee (principal); M48.02 Spinal stenosis, cervical region
CPT/HCPCS: 72148

== ENCOUNTER 2024-11-23 11:07 | Emergency (ER) | payer MEDICARE, MEDICAID, SELFPAY ==
[2024-11-23 11:10] VITALS: BP 128/71; PULSE 72; RESP 20; TEMP 36.7; O2SAT 94
--- NOTE | 2024-11-23 11:15 | ED.GENADUL_ITS ---
Discharge Plan Disposition Patient Disposition: Home Discharge Details Clinical Impression: Acute pain of right knee Primary Care Provider: Rafi Macedo ED Provider: Edmond Mayer [place] Meds and New Rx's Prescriptions: Continued sildenafil 100 mg tablet 100 mg PO DAILY PRN (Reason: sexual activity) Qty: 30 6RF Rx Instructions: administer 30 minutes to 4 hours before activity triamcinolone acetonide 0.1 % cream 1 applic topical BID Qty: 30 0RF cyanocobalamin (vitamin B-12) [Vitamin B-12] 1,000 mcg tablet 1,000 mcg PO DAILY Qty: 90 3RF Rx Instructions: 08/03/[address] [facility] folic acid 1 mg tablet 1 mg PO DAILY Qty: 90 3RF Patient Comments: pt is unsure if he is taking Rx Instructions: 08/03/[address] [facility] quetiapine 200 mg tablet 200 mg PO QHS Qty: 90 3RF omeprazole 20 mg capsule,delayed release(DR/EC) 20 mg PO BID Qty: 180 3RF Rx Instructions: Take 20 mg twice daily on an empty stomach at least 30 minutes before meals ketoconazole 2 % cream 1 applic topical DAILY Qty: 30 0RF Rx Instructions: 08/03/22 per [facility] acetaminophen 500 mg tablet 500 - 1,000 mg PO BID MDD 2000 mg PRN (Reason: pain) Qty: 180 3RF sucralfate [Carafate] 1 gram tablet 1 g PO QACHS PRN (Reason: reflux or gastric pain) Qty: 120 3RF Rx Instructions: Trial with meals and qHS as needed if PPI increase not enough trazodone 100 mg tablet 100 mg PO QHS PRN (Reason: sleep) Qty: 90 3RF multivitamin Tablet 1 tab PO DAILY olanzapine 5 mg tablet 5 mg PO BID Patient Comments: reported from [facility] that provider from [facility] just sent this in. [place] pregabalin [Lyrica] 300 mg capsule 300 mg PO TID Qty: 270 3RF buprenorphine-naloxone [Suboxone] 8-2 mg film 1 film sublingual TID Discharge Instructions Instructions: Chronic Knee Pain Additional Instructions: You are seen in the emergency department for your knee pain. Your x-ray showed no sign of any fractures but does have significant degenerative changes for which you should follow-up with your primary care provider. As we discussed if you develop worsening swelling in your knee develop any fevers or cannot move your foot please return to the emergency department. Please ice your knee for 20 minutes on 20 minutes off throughout the day today. Please rest your leg at home for the next several days. For your pain please take medications as follows: 1. Take acetaminophen (Tylenol), 1,000 mg (two 500 mg tabs) every 6 hours [2. Take ibuprofen (Advil), 400 mg every 6 hours.] HPI General Date/Time Provider Initiated Documentation: 11/23/24 11:15 . HPI Narrative: MDM This is an overall well-appearing normothermic and not tachycardic 64-year-old male with right knee pain and x-rays showing chronic changes for which patient will be discharged with empiric trial of expectant outpatient management. No pain out of proportion to suggest necrotizing soft tissue infection. Patient is able to straight leg raise so I am not suspicious for quadriceps tendon injury. Patient does have medial joint pain in his knee concerning for the possibility of ligamentous injury. He has intact range of motion in his right knee and no erythema nor fevers to suggest septic joint so I did not feel the patient required arthrocentesis. His right foot is warm and well-perfused so I am not concerned for critical limb ischemia so I do not feel the patient warrants a CT angiogram of his right lower extremity. Patient is not an alcoholic and has no history of gout so my suspicion for crystal arthropathy is low so I did not feel the patient required arthrocentesis. No erythema to suggest cellulitis. No fluctuance to suggest abscess. Patient does have right-sided varicose veins however has no palpable cords in his calf and negative Homans' sign so my suspicion is low for DVT so I did not feel that the patient required a duplex study. Given that patient used his leg more than usual yesterday I think that his increasing pain and swelling is secondary to exacerbation of osteoarthritis given the significant degenerative changes seen on his x-ray. I offered him an HERNAN wrap but he plans on continuing with his neoprene knee brace. We also discussed knee immobilizer but his preference was to use his knee brace. I advised rest elevation and ice 20 minutes on 20 minutes off for the next several days. I advised PCP follow-up later this week if his pain did not improve. He may or may not benefit from additional imaging pending reassessment. Given his age I advised acetaminophen rather than ibuprofen. We discussed that if he had significant worsening pain fevers could not move his foot or if he passed out that he should return to the emergency department. He understood his return indications and was discharged with PCP follow-up. HPI This is a 64-year-old male with history of arthritis and lower extremity varicose veins right emergency department via private vehicle in setting of acute on chronic right knee pain. Patient reports that his right knee has been bothering him since 1973. He was more active than usual carrying pallets for his former . He was doing a lot of twisting and turning. He denies any specific trauma to his right knee. He noted this morning that his right knee pain radiated down to his right foot. He has never had a PE nor DVT. He denies any fevers chills nausea or vomiting. Exam General: Well-appearing in no acute distress speaking in complete sentences. Head: Normocephalic, atraumatic. Eye: Extraocular eye movements intact. No conjunctival injection. No scleral icterus. Ear, nose, mouth, throat: Grossly normal inspection. Normal voice, handling secretions normally. Neck: Trachea midline. Cardiovascular: Well-perfused distal extremities. Respiratory: Nonlabored respiration. Gastrointestinal: Nondistended abdomen. Musculoskeletal: Right knee with small effusion. No obvious deformities. No erythema to the knee. No fluctuance. Patient has intact range of motion fully in the right knee. He can straight leg raise on the right. He is intact multiphasic PT and DP pulses. Cap refill less than 2 seconds in the right toes. Patient does have a chronic appearing hammertoe of right foot with bunion. He has negative Homans' sign. No palpable cords. He does have varicose veins. No lower extremity pitting edema. He does concerned about a cord on the posterior aspect of his right lower extremity proximal to his right knee. Advised him that this was consistent with one of the tendons from his hamstring muscle. Skin: Normal for age and race, grossly normal temperature and turgor. No acute rash. Neurologic: Alert and appropriate, no apparent acute deficits. GCS 15. Psychiatric: Mood and manner are appropriate. Grooming and personal hygiene are appropriate. Related Data Home Medications ?Medication ?Instructions ?Recorded ?Confirmed buprenorphine 8 mg-naloxone 2 mg 1 film sublingual TID 03/18/23 11/23/24 sublingual film (Suboxone) omeprazole 20 mg capsule,delayed 20 mg PO BID #180 caps 05/17/23 11/23/24 release ketoconazole 2 % topical cream 1 applic topical DAILY #30 grams 07/25/23 11/23/24 acetaminophen 500 mg tablet 500 - 1,000 mg (1 - 2 x 500 mg) PO 10/18/23 11/23/24 BID PRN pain #180 tab-caps sucralfate 1 gram tablet (Carafate) 1 g PO QACHS PRN reflux or gastric 03/17/24 11/23/24 pain #120 tabs trazodone 100 mg tablet 100 mg PO QHS PRN sleep #90 tabs 03/17/24 11/23/24 multivitamin 1 tab PO DAILY 05/26/24 11/23/24 sildenafil 100 mg tablet 100 mg PO DAILY PRN sexual 06/01/24 11/23/24 activity #30 tabs olanzapine 5 mg tablet 5 mg PO BID 07/07/24 11/23/24 pregabalin 300 mg capsule (Lyrica) 300 mg PO TID #270 caps 07/30/24 11/23/24 triamcinolone acetonide 0.1 % 1 applic topical BID #30 grams 09/21/24 11/23/24 topical cream cyanocobalamin (vitamin B-12) 1,000 mcg PO DAILY #90 tabs 11/13/24 11/23/24 1,000 mcg tablet (Vitamin B-12) folic acid 1 mg tablet 1 mg PO DAILY #90 tabs 11/13/24 11/23/24 quetiapine 200 mg tablet 200 mg PO QHS #90 tabs 11/13/24 11/23/24 Previous Rx's ?Medication ?Instructions ?Recorded omeprazole 20 mg capsule,delayed 20 mg PO BID #180 caps 05/17/23 release ketoconazole 2 % topical cream 1 applic topical DAILY #30 grams 07/25/23 acetaminophen 500 mg tablet 500 - 1,000 mg (1 - 2 x 500 mg) PO 10/18/23 BID PRN pain #180 tab-caps sucralfate 1 gram tablet (Carafate) 1 g PO QACHS PRN reflux or gastric 03/17/24 pain #120 tabs trazodone 100 mg tablet 100 mg PO QHS PRN sleep #90 tabs 03/17/24 sildenafil 100 mg tablet 100 mg PO DAILY PRN sexual 06/01/24 activity #30 tabs pregabalin 300 mg capsule (Lyrica) 300 mg PO TID #270 caps 07/30/24 triamcinolone acetonide 0.1 % 1 applic topical BID #30 grams 09/21/24 topical cream cyanocobalamin (vitamin B-12) 1,000 mcg PO DAILY #90 tabs 11/13/24 1,000 mcg tablet (Vitamin B-12) folic acid 1 mg tablet 1 mg PO DAILY #90 tabs 11/13/24 quetiapine 200 mg tablet 200 mg PO QHS #90 tabs 11/13/24 Allergies Allergy/AdvReac Type Severity Reaction Status Date / Time No Known Allergies Allergy Verified 11/23/24 11:15 General Stated Complaint: Orthopedic ESTER: 4 Course Vital Signs Vital signs: Vital Signs Temperature 36.7 C 11/23/24 11:10 Pulse 72 11/23/24 11:10 Respiratory Rate 20 11/23/24 11:10 Blood Pressure 128/71 11/23/24 11:10 Pulse Oximetry 94 11/23/24 11:10 Temperature 36.7 C 11/23/24 11:10 Pulse 72 11/23/24 11:10 Respiratory Rate 20 11/23/24 11:10 Blood Pressure 128/71 11/23/24 11:10 Blood Pressure Position Sitting 11/23/24 11:10 Pulse Oximetry 94 11/23/24 11:10 Oxygen Delivery Method Room Air 11/23/24 11:10 Oxygen Flow Rate 0 11/23/24 11:10 Medical Decision Making Quality:SDOH Health Related Social Needs: No Data to Display PFSH All Active Problems (Updated 11/23/24 @ 11:49 by Edmond Mayer MD) Acute pain of right knee (Acute) Tympanic sclerosis (Acute) Eczema (Acute) Erectile dysfunction (Acute) Bunion of right foot (Acute) Hammer toe of right foot (Acute) Screen for colon cancer (Acute) History of melena (Acute) Depression (Chronic) Cubital tunnel syndrome on left (Acute) Cataracts, bilateral (Acute ~08/2022) 08/21/22 [place] - considered Mild updated glasses prescription Cocaine use disorder (Acute) Severe Opioid dependence (Acute) Severe Hypomagnesemia (Acute) Urinary retention (Acute) Dilated bile duct (Acute) Hypokalemia (Acute) Alcoholic pancreatitis (Acute) Alcohol dependence with withdrawal (Acute) Severe Narcotic withdrawal (Acute) Acute gallstone pancreatitis (Acute) Alcohol intoxication (Acute) No-show for appointment (Acute) Arthritis of right glenohumeral joint (Acute) Fracture of right clavicle (Acute) distal clavicle 12/12/21 Varicose veins of both lower extremities (Acute) Hyperglycemia (Acute) Low back pain (Acute) Prostatitis (Acute) Inflammatory disease of liver (Chronic) Atrophic gastritis (Acute) Heart block (Acute) Claustrophobia (Acute) Vitamin D deficiency (Acute) Disorder of endocrine system (Acute) Medical History (Updated 11/23/24 @ 11:49 by Edmond Mayer MD) Psychotic disorder with delusions Alcoholism Gout Essential hypertension ADHD Depressive disorder Tobacco use disorder Anemia of chronic disease Type II diabetes mellitus GERD (gastroesophageal reflux disease) Surgical History (Updated 03/18/23 @ 14:17 by Mag Ruiz) History of esophagogastroduodenoscopy (~03/18/23) History of colonoscopy (~03/18/23) History of foot surgery History of tonsillectomy Social History Smoking/Tobacco Use Status: Current every day Tobacco Type: cigarettes Tobacco: How many years used: 48 Quit status: considering quitting Counseling given: support medications Smoking risk assessment performed?: Yes Alcohol Intake: current Alcohol Intake frequency: 3 or more drinks per day Drug use: Daily Substance use type: former substance user, marijuana and crack/cocaine Details: H/O substance abuse - heroin current marijuana user, last inhaled t-4 cocaine user, pt reports last use a month ago, and uses about once a month Adopted: No Housing: other Details: camper Communication Needs: None current occupation: disabled Pets and animals: No Current gender identity: male What is your relationship status?: don't know How often do you talk on the phone with friends or family?: three or more times per week How often do you get together with friends or relatives?: three or more times per week Panel score (0-1 are the most socially isolated patients): 1 What type of physical activity do you participate in: none Seatbelt use: sometimes Fire extinguisher in home: No Carbon monox detector in home: No Firearms in home: No Do you feel safe at home: Yes Do you feel safe in your relationship?: Yes Additional Social history: pt lives in a room of a [facility]
--- NOTE | 2024-11-23 11:15 | DI.RAD_ITS ---
Exam(s) XR KNEE RT 3V AP,LAT,REBECCA EXAM: XR KNEE RT 3V AP,LAT,REBECCA CLINICAL HISTORY: Right knee pain. TECHNIQUE: 2D digital imaging was performed. Three views. COMPARISON: No exams were available for comparison FINDINGS: BONES: No acute fracture is present. No bony destructive lesion is seen. Articular spurring through out JOINTS: Severe narrowing of the medial femoral tibial joint space. A moderate-sized joint effusion i s seen. SOFT TISSUE: Normal. IMPRESSION: Advanced degenerative changes of the knee. DATA REPOSITORY: RADIATION DOSE DELIVERED:
[2024-11-23] MEDS: Acetaminophen 500 MG TAB 1000 MG PO (11:56)
== END 2024-11-23 12:04 | disposition home or self-care (01) ==
PROVIDERS: Emergency Provider Emergency Medicine; PCP Family Medicine
DX: M25.561 Pain in right knee (principal); F17.210 Nicotine dependence, cigarettes, uncomplicated
CPT/HCPCS: 73562; 99283; 72148